=== PATIENT | female | born 1965 | race Caucasian/White ===

== ENCOUNTER 2023-10-25 13:55 | Outpatient (OUT) | payer OTHER, SELFPAY ==
--- NOTE | 2023-10-25 14:03 | MM_ITS ---
Patient Name: ATIF MEDLEY MR#: [id number] : 1965 Exam Date: 10/25/2023 Ordering Doctor: DR Leeroy Villafuerte . RADIOLOGY REPORT PROCEDURE: MM TOMOSYNTHESIS SCREENING BI COMPARISON: MG MAMM SCREEN 3D GABRIEL CAD, 10/07/2022. MG MAMM SCREEN 3D GABRIEL CAD, 10/06/2021. MG MAMM SCREEN GABRIEL W CAD, 05/07/2020. MG MAMM GABRIEL SCRN W CAD DIG, 07/16/2013. INDICATIONS: screening Calculator Name NCI Breast Cancer Risk Assessment Tool 5 Year Breast Cancer Risk 2.60% Lifetime Breast Cancer Risk 15.20% Personal Breast Cancer No Personal Ovarian Cancer No Treatments None Family Cancers Mother with breast cancer at age 66; Aunt-paternal with breast cancer at age ~58. LOCATION: [facility] BREAST COMPOSITION: There are scattered areas of fibroglandular density. FINDINGS: DIAGNOSTIC CATEGORY 2--BENIGN FINDING: RIGHT BREAST: No significant suspicious finding. Scattered benign-appearing calcifications are present. No significant change has occurred. LEFT BREAST: No significant suspicious finding. Scattered benign-appearing calcifications are present. No significant change has occurred. RECOMMENDATIONS: ROUTINE MAMMOGRAM AND CLINICAL EVALUATION IN 12 MONTHS. PLEASE NOTE: A NORMAL MAMMOGRAM DOES NOT EXCLUDE THE POSSIBILITY OF BREAST CANCER. A CLINICALLY SUSPICIOUS PALPABLE LUMP SHOULD BE BIOPSIED. Dictated by: Dante Delatorre M.D. on 10/25/2023 at 16:29 Approved by: Dante Delatorre M.D. on 10/25/2023 at 16:31
== END 2023-10-25 13:56 | disposition home or self-care (01) ==
LOC: MAMMO 13:57
PROVIDERS: PCP Family Medicine; Visit Provider Family Medicine
DX: Z12.31 Encounter for screening mammogram for malignant neoplasm of breast (principal); Z80.3 Family history of malignant neoplasm of breast
CPT/HCPCS: 77063; 77067

== ENCOUNTER 2023-12-05 14:22 | Outpatient (OUT) | payer OTHER, SELFPAY | END 2023-12-05 14:23 | disposition home or self-care (01) | LOC: PST 14:22 | PROVIDERS: PCP Family Medicine; Visit Provider Surgery | DX: Z01.818 Encounter for other preprocedural examination (principal); Z12.11 Encounter for screening for malignant neoplasm of colon ==

== ENCOUNTER 2023-12-13 10:57 | Day surgery (SDC) | payer OTHER, SELFPAY ==
--- OUTSIDE RECORDS SUMMARY | 2023-12-13 11:07 | XMS_ITS | CCD ---
Author Organization [facility] Care Team Providers Care Document Analyst Name Role Phone Mike DIXON, Leeroy Mulligan Primary Care Provider CANOS IV, PHILIP RAMIREZ Admitting Unavaila ble CANOS IV, PHILIP RAMIREZ Attending Unavaila ble NADERER, LEEROY MULLIGAN Primary Care Unavailabl e CANOS IV, PHILIP RAMIREZ Referring Unavaila ble MARIAELENAERER, LEEROY MULLIGAN Primary Care Unavailabl e NADERER, DR LEEROY Farah Admitting Unavailable NADERER, DR LEEROY Farah Primary Care Unavailable NADEREMadison, DR LEEROY Farah Consulting Unavailable NADEREMadison, DR LEEROY Farah Attending Unavailable NADERER, DR LEEROY Farah Admitting Unavailable ZIEBER, DR DANTE Wallace Consulting Unavailable MIKE, DR LEEROY Farah Primary Care Unavailable NADEREMadison, DR LEEROY Farah Attending Unavailable NADMATTHEW, DR LEEROY Farah Consulting Unavailable Leeroy Mckeon MD Primary Care Provider MERON BANKS Attending Unavailable MARIAELENAERER, LEEROY Referring Unavailable Medications Current Medications Medication Drug Class(es) Dates Sig (Normalized) Sig (Original) acetaminophen 325 mg / HYDROcodone bitartrate 5 mg oral tablet (1 source) Opioid Agonist Start: 11-06-2020 End: 11-13-2020 HYDROcodone-aceta minophen (NORCO) 5-325 MG per tablet Indications: Acute post-operative pain Take 1 tablet by mouth every 6 hours as needed for Pain for up to 7 days. Intended supply: 7 days. Take lowest dose possible to manage pain 28 tablet 0 11/06/2020 11/13/2020 Active aspirin 81 mg chewable tablet (2 sources) Platelet Aggregation Inhibitor, Nonsteroidal Anti-inflammatory Drug take 1 tablet by mouth once daily aspirin 81 MG chewable tablet Take 81 mg by mouth daily 0 Active busPIRone hydrochloride 7.5 mg oral tablet (3 sources) Start: 12-20-2023 take 1 tablet by mouth in the morning busPIRone (Buspar) 7.5 MG tablet Indications: Generalized anxiety disorder (CMS/HCC) Take 1 tablet (7.5 mg) by mouth in the morning and 1 tablet (7.5 mg) before bedtime. 60 tablet 5 06/08/2023 Active End: 11-06-2020 take 7.5 mg by mouth twice daily busPIRone (BUSPAR) 5 MG tablet Take 7.5 mg by mouth 2 times daily 0 11/06/2020 Discontinued (LIST CLEANUP) calcium carbonate 500 mg oral tablet (2 sources) take 1 tablet by mouth once daily calcium carbonate (OSCAL) 500 MG TABS tablet Take 500 mg by mouth daily 0 Active calcium chloride 0.0014 meq/ml / potassium chloride 0.004 meq/ml / sodium chloride 0.103 meq/ml / sodium lactate 0.028 meq/ml injectable solution (1 source) Start: lactated ringers infusion cholecalciferol 0.05 mg oral capsule (2 sources) Vitamin D Cholecalciferol (VITAMIN D3) 50 MCG (1999) CAPS Take by mouth 0 Active 1 ml diphenhydrAMINE hydrochloride 50 mg/ml cartridge (1 source) Histamine-1 Receptor Antagonist Start: End: diphenhydrAMINE (BENADRYL) injection 12.5 mg docosahexaenoic acid 120 mg / eicosapentaenoic acid 180 mg oral capsule (2 sources) take 1 capsule by mouth three times daily Powell-3 Fatty Acids (FISH OIL) 1000 MG CAPS Take 3,000 mg by mouth 3 times daily 0 Active docusate sodium 100 mg oral capsule (1 source) Start: take 1 capsule by mouth twice daily docusate sodium (COLACE) 100 MG capsule Take 1 capsule by mouth 2 times daily 30 capsule 2 11/06/2020 Active labetalol (NORMODYNE;TRANDATE) injection syringe 5 mg (1 source) Start: labetalol (NORMODYNE;TRANDATE) injection syringe 5 mg LORazepam 1 mg oral tablet (1 source) Benzodiazepine Start: take 1 tablet by mouth three times daily as needed LORazepam (Ativan) 1 MG tablet Indications: VIANCA (generalized anxiety disorder) (CMS/HCC) TAKE 1 TABLET BY MOUTH THREE TIMES DAILY NEEDED 90 tablet 1 07/28/2023 Active Start: 07-28-2023 take 1 tablet by cinthia three times daily as needed LORazepam (Ativan) 1 MG tablet Indications: VIANCA (generalized anxiety disorder) ([facility]) TAKE 1 TABLET BY MOUTH THREE TIMES DAILY NEEDED 90 tablet 1 07/28/2023 Active 1 ml meperidine hydrochloride 50 mg/ml injection (1 source) Opioid Agonist Start: 11-06-2020 meperidine (DEMEROL) injection 12.5 mg metoprolol tartrate 50 mg oral tablet (2 sources) beta-Adrenergic Barbie take 1 tablet by mouth twice daily metoprolol tartrate (LOPRESSOR) 50 MG tablet Take 50 mg by mouth 2 times daily 0 Active 1 ml morphine sulfate 2 mg/ml cartridge (1 source) Opioid Agonist Start: 11-06-2020 morphine (PF) injection 2 mg Multiple Vitamins-Minerals (THERAPEUTIC MULTIVITAMIN-MINERALS ) tablet (2 sources) take 1 tablet by mouth once daily Multiple Vitamins-Minerals (THERAPEUTIC MULTIVITAMIN-MINERAL S) tablet Take 1 tablet by mouth daily 0 Active ondansetron 4 mg disintegrating oral tablet (2 sources) Serotonin-3 Receptor Antagonist Start: 11-06-2020 take 1 tablet by mouth every six hours as needed for nausea ondansetron (ZOFRAN ODT) 4 MG disintegrating tablet Take 1 tablet by mouth every 6 hours as needed for Nausea or Vomiting 20 tablet 0 11/06/2020 Active Start: 11-06-2020 End: 11-06-2020 ondansetron (ZOFRAN) injecti on 4 mg 1 ml promethazine hydrochloride 25 mg/ml injection (1 source) Phenothiazine Start: 11-06-2020 promethazine (PHENERGAN) injection 12.5 mg 24 hr QUEtiapine 300 mg extended release oral tablet (2 sources) Atypical Antipsychotic take 1 tablet by mouth once daily QUEtiapine (SEROQUEL XR) 300 MG extended release tablet Take 300 mg by mouth nightly 0 Active sertraline 100 mg oral tablet (2 sources) Serotonin Reuptake Inhibitor take 1 tablet by mouth once daily sertraline (ZOLOFT) 100 MG tablet Take 100 mg by mouth daily 0 Active 3 ml sodium chloride 9 mg/ml injection (7 sources) Start: 11-06-2020 sodium chloride flush 0.9 % injection 10 mL Start: 11-06-2020 End: 11-06-2020 0.9 % sodium chloride bolus Start: 11-06-2020 sodium chlorid e flush 0.9 % injection 10 mL Start: 11-06-2020 0.9 % sodium c hloride infusion Start: 10-28-2020 sodium chlorid e flush 0.9 % injection 10 mL Start: 10-28-2020 End: 10-28-2020 0.9 % sodium chloride bolus Zinc (1 source) take 1 tablet by mouth once priscila y zinc 50 MG TABS tablet Take 50 mg by mouth daily 0 Active Completed/Discontinued Medications Medication Drug Class(es) Dates Sig (Normalized) Sig (Original) acetaminophen 325 mg / oxyCODONE hydrochloride 5 mg oral tablet (1 source) Opioid Agonist Start: 11-06-2020 End: 11-06-2020 oxyCODONE-acetamino phen (PERCOCET) 5-325 MG per tablet b complex vitamins capsule (2 sources) End: 11-06-2020 take 1 capsule by mouth once daily b complex vitamins capsule Take 1 capsule by mouth daily 0 11/06/2020 Discontinued (LIST CLEANUP) take 1 capsule by mouth once elodia ly b complex vitamins capsule Take 1 capsule by mouth daily 0 Active 2 ml fentaNYL 0.05 mg/ml injection (1 source) Opioid Agonist Start: 11-06-2020 End: 11-06-2020 fentaNYL (SUBLIMAZE) 100 MCG/2ML injection 1 ml HYDROmorphone hydrochloride 1 mg/ml cartridge (4 sources) Opioid Agonist Start: 11-06-2020 End: 11-06-2020 HYDROmorphone (DILAUDID) 1 MG/ML injection Start: 11-06-2020 HYDROmorphone (DILAUDID) injection 0.5 mg Start: 11-06-2020 HYDROmorphone (DILAUDID) injection 0.25 mg iohexol (OMNIPAQUE 240) injection 50 mL (1 source) Start: 10-28-2020 End: 10-28-2020 iohexol (OMNIPAQUE 240) injection 50 mL iopamidol (ISOVUE-370) 76 % injection 75 mL (1 source) Start: 10-28-2020 End: 10-28-2020 iopamidol (ISOVUE-370) 76 % injection 75 mL 2 ml midazolam 1 mg/ml injection (1 source) Benzodiazepine Start: 11-06-2020 End: 11-06-2020 midazolam (VERSED) 2 MG/2ML injection Problems Problem Classification Problem Date Documented Date Episodic/Chronic Abdominal pain (1 source) Right inguinal pain; Translations: [Right lower quadrant pain] Episodic Anxiety disorders (1 source) Generalized anxiety disorder; Translations: [Generalized anxiety disorder] 07-28-2023 Chronic Other nervous system disorders (1 source) Acute postoperative pain; Translations: [Other acute postprocedural pain] Episodic Other screening for suspected conditions (not mental disorders or infectious disease) (4 sources) Encounter for screening mammogram for malignant neoplasm of breast; Translations: [ENC SCR MAMMO MALIG NEOPLASM BREAST] Onset: 10-07-2022 Episodic Residual codes; unclassified (1 source) Family history of malignant neoplasm of breast; Translations: [FAMILY HX MALIG NEOPLASM OF BREAST] Onset: 10-13-2022 Episodic Results Test Name Value Interpretation Reference Range Facil ity MG MAMM SCREEN 3D GABRIEL CADon 10-07-2022 MG MAMM SCREEN 3D GABRIEL CAD Patient: ATIF MEDLEY Exam Date: 10/07/2022 : 1965 Gender:F Ordering : DR LEEROY MCKEON . Admission #: [id number] Family : Order #: [id number] CLICK HERE TO VIEW EXAM RADIOLOGY REPORT PROCEDURE: MAMMOGRAM SCREENING 3D BILATERAL CAD COMPARISON: MG MAMM SCREEN 3D GABRIEL CAD, 10/06/2021. MG MAMM SCREEN GABRIEL W CAD, 05/07/2020. MG MAMM SCREEN GABRIEL W CAD, 06/23/2017. DIGITIZED_MAMMO, 06/28/2008. INDICATIONS: Screening mammography Calculator Name NCI Breast Cancer Risk Assessment Tool 5 Year Breast Cancer Risk 2.50% Lifetime Breast Cancer Risk 15.50% Personal Breast Cancer No Personal Ovarian Cancer No Treatments None Family Cancers Mother with breast cancer at age 66; Aunt-paternal with breast cancer at age 58. LOCATION: [facility] BREAST COMPOSITION: Scattered areas fibroglandular density. FINDINGS: DIAGNOSTIC CATEGORY 2--BENIGN FINDING: RIGHT BREAST: No significant suspicious finding. Scattered benign-appearing calcifications are present. No significant change has occurred. LEFT BREAST: No significant suspicious finding. Scattered benign-appearing calcifications are present. No significant change has occurred. RECOMMENDATIONS: ROUTINE MAMMOGRAM AND CLINICAL EVALUATION IN 12 MONTHS. PLEASE NOTE: A NORMAL MAMMOGRAM DOES NOT EXCLUDE THE POSSIBILITY OF BREAST CANCER. A CLINICALLY SUSPICIOUS PALPABLE LUMP SHOULD BE BIOPSIED. Dictated by: Dante Delatorre M.D. on 10/07/2022 at 14:36 Approved by: Dante Delatorre M.D. on 10/07/2022 at 14:39 Normal [facility] CBC AUTO DIFFon 07-28-2022 BASO # 0.0 103/ul Normal 0.0-0.1 [facility] Comment on above: Performed By: #### C BC #### [facility] [address] [place] [address] Dr. Mary Bolanos Basophils/100 WBC (Bld) 1.0 % Normal 0.2-2.0 [facility] Comment on above: Performed By: #### C BC #### [facility] [address] [place] [address] Dr. Mary Bolanos EO # 0.1 103/ul Normal 0.0-0.7 [facility] Comment on above: Performed By: #### C BC #### [facility] [address] [place] [address] Dr. Mary Bolanos Eosinophils/100 WBC (Bld) 2.8 % Normal 0.9-7.0 [facility] Comment on above: Performed By: #### C BC #### [facility] [address] [place] [address] Dr. Mary Bolanos Erythrocyte distribution width (RBC) [Ratio] 14.5 % Normal 11.0-15.0 [facility] Comment on above: Performed By: #### C BC #### [facility] [address] [place] [address] Dr. Mary Bolanos Hematocrit (Bld) [Volume fraction] 40.4 % Normal 36.0-48.0 [facility] Comment on above: Performed By: #### C BC #### [facility] [address] [place] [address] Dr. Mary Bolanos Hemoglobin (Bld) [Mass/Vol] 12.3 g/dL Normal 12.0-16.0 [facility] Comment on above: Performed By: #### C BC #### [facility] [address] [place] [address] Dr. Mary Bolanos IG # 0.01 10e3/ul Normal 0.00-0.03 [facility] Comment on above: Performed By: #### C BC #### [facility] [address] [place] [address] Dr. Mary Bolanos IG % 0.3 % Normal 0.0-0.5 [facility] Comment on above: Performed By: #### C BC #### [facility] [address] [place] [address] Dr. Mary Bolanos LYMPH # 1.9 103/ul Normal 1.2-3.8 [facility] Comment on above: Performed By: #### C BC #### [facility] [address] [place] [address] Dr. Mary Bolanos Lymphocytes/100 WBC (Bld) 48.0 % Normal 20.5-60.0 [facility] Comment on above: Performed By: #### C BC #### [facility] [address] [place] [address] Dr. Mary Bolanos MANUAL DIFF REQ NO Normal [facility] Comment on above: Performed By: #### C BC #### [facility] [address] [place] [address] Dr. Mary Bolanos MCH (RBC) [Entitic mass] 28.2 pg Normal 26.7-34.0 [facility] Comment on above: Performed By: #### C BC #### [facility] [address] [place] [address] Dr. Mary Bolanos MCHC (RBC) [Mass/Vol] 30.4 g/dL Normal 29.9-35.2 [facility] Comment on above: Performed By: #### C BC #### [facility] [address] [place] [address] Dr. Mary Bolanos MCV (RBC) [Entitic vol] 92.7 fL Normal 81.0-99.0 [facility] Comment on above: Performed By: #### C BC #### [facility] [address] [address] [address] Mary Bolanos MONO # 0.3 103/ul Normal 0.3-0.8 [facility] Comment on above: Performed By: #### C BC #### [facility] [address] [place] [address] Dr. Mary Bolanos Monocytes/100 WBC (Bld) 7.8 % Normal 1.7-12.0 [facility] Comment on above: Performed By: #### C BC #### [facility] [address] [place] [address] Dr. Mary Bolanos NEUT # 1.6 103/ul Normal 1.4-6.5 [facility] Comment on above: Performed By: #### C BC #### [facility] [address] [place] [address] Dr. Mary Bolanos Neutrophils/100 WBC (Bld) 40.1 % Critically low 43.0-75.0 [facility] Comment on above: Performed By: #### C BC #### [facility] [address] [place] [address] Dr. Mary Bolanos Platelet mean volume (Bld) [Entitic vol] 9.0 fL Critically low 9.5-13.5 [facility] Comment on above: Performed By: #### C BC #### [facility] [address] [place] [address] Dr. Mary Bolanos PLT 291 103/ul Normal 150-450 [facility] Comment on above: Performed By: #### C BC #### [facility] [address] [place] [address] Dr. Mary Bolanos RBC 4.36 106/ul Normal 4.20-5.40 [facility] Comment on above: Performed By: #### C BC #### [facility] [address] [place] [address] Dr. Mary Bolanos WBC 4.0 103/ul Normal 4.0-11.0 [facility] Comment on above: Performed By: #### C BC #### [facility] [address] [address] [address] Mary Bolanos GLYCOHEMOGLOBIN A1Con 2022 ADA RECOMMENDATION SEE BELOW Normal [facility] Comment on above: Result Comment: ADA RECOMMENDED LIMIT 4.0 - 6.0 ADA THERAPEUTIC TARGET < 7.0 ACTION SUGGESTED > 7.0 Performed By: #### A 1C #### [facility] [address] [address] [address] Mary Bolanos Glucose [Mass/Vol] 103 mg/dL Normal [facility] Comment on above: Performed By: #### A 1C #### [facility] [address] [place] [address] Dr. Mary Bolanos HbA1c (Bld) [Mass fraction] 5.2 % Normal 4.5-6.2 [facility] Comment on above: Performed By: #### A 1C #### [facility] [address] [place] [address] Dr. Mary Bolanos LIPID PROFILEon 07-28-2022 CHOL-HDL RATIO NORM SEE BELOW Normal [facility] Comment on above: Result Comment: 3.3 - 4.4 LOW RISK 4.4 - 7.1 AVERAGE RISK 7.1 - 11.0 MODERATE RISK >11.0 HIGH RISK Performed By: #### T SH, LIPID, BMP, LIVER #### [facility] [address] [place] [address] Dr. Mary Bolanos Cholesterol [Mass/Vol] 214 mg/dL Critically high <=200 [facility] Comment on above: Performed By: #### T SH, LIPID, BMP, LIVER #### [facility] [address] [place] [address] Dr. Mary Bolanos Cholesterol in HDL [Mass/Vol] 64 mg/dL Critically high 40-60 [facility] Comment on above: Performed By: #### T SH, LIPID, BMP, LIVER #### [facility] [address] [place] [address] Dr. Mary Bolanos Cholesterol in LDL [Mass/Vol] 132.2 mg/dL Normal [facility] Comment on above: Performed By: #### T SH, LIPID, BMP, LIVER #### [facility] [address] [address] [address] Mary Bolanos Cholesterol.total/Cho lesterol in HDL [Mass ratio] 3.3 {ratio} Normal [facility] Comment on above: Performed By: #### T SH, LIPID, BMP, LIVER #### [facility] [address] [address] [address] Mary Bolanos HDL NORMAL > or = 60 mg/dl - LOW CARDIOVASCULAR RISK <40 mg/dl - HIGH CARDIOVASCULAR RISK Normal [facility] Comment on above: Performed By: #### T SH, LIPID, BMP, LIVER #### [facility] [address] [address] [address] Mary Bolanos LDL CALC NORMAL SEE BELOW Normal [facility] Comment on above: Result Comment: <100 mg/dl OPTIMAL 100 - 129 mg/dl NEAR OR ABOVE OPTIMAL 130 - 159 mg/dl BORDERLINE HIGH 160 - 189 mg/dl HIGH >190 mg/dl VERY HIGH Performed By: #### T SH, LIPID, BMP, LIVER #### [facility] [address] [address] [address] Mary Bolanos Triglyceride [Mass/Vol] 89 mg/dL Normal <=150 [facility] Comment on above: Performed By: #### T SH, LIPID, BMP, LIVER #### [facility] [address] [address] [address] Mary Bolanos VLDL CALC 17.8 mg/dL Normal [facility] Comment on above: Performed By: #### T SH, LIPID, BMP, LIVER #### [facility] [address] [address] [address] Mary Bolanos LIVER PROFILEon 07-28-2022 Albumin [Mass/Vol] 3.4 g/dL Normal 3.4-5.0 [facility] Comment on above: Performed By: #### T SH, LIPID, BMP, LIVER #### [facility] [address] [address] [address] Mary Bolanos Albumin/Globulin [Mass ratio] 0.8 {ratio} Normal [facility] Comment on above: Performed By: #### T SH, LIPID, BMP, LIVER #### [facility] [address] [address] [address] Mary Bolanos ALP [Catalytic activity/Vol] 96 U/L Normal 46-116 [facility] Comment on above: Performed By: #### T SH, LIPID, BMP, LIVER #### [facility] [address] [address] [address] Mary Bolanos ALT [Catalytic activity/Vol] 32 U/L Normal 14-59 [facility] Comment on above: Performed By: #### T SH, LIPID, BMP, LIVER #### [facility] [address] [place] [address] Dr. aMry Bloanos AST [Catalytic activity/Vol] 25 U/L Normal 15-37 [facility] Comment on above: Performed By: #### T SH, LIPID, BMP, LIVER #### [facility] [address] [place] [address] Dr. Mary Bolanos BILI, CONJUGATED 0.1 mg/dL Normal 0.0-0.2 [facility] Comment on above: Performed By: #### T SH, LIPID, BMP, LIVER #### [facility] [address] [address] [address] Mary Bolanos Bilirubin [Mass/Vol] 0.3 mg/dL Normal 0.2-1.0 [facility] Comment on above: Performed By: #### T SH, LIPID, BMP, LIVER #### [facility] [address] [place] [address] Dr. Mary Bolanos Globulin (S) [Mass/Vol] 4.1 g/dL Normal [facility] Comment on above: Performed By: #### T SH, LIPID, BMP, LIVER #### [facility] [address] [place] [address] Dr. Mary Bolanos Protein [Mass/Vol] 7.5 g/dL Normal 6.4-8.2 [facility] Comment on above: Performed By: #### T SH, LIPID, BMP, LIVER #### [facility] [address] [place] [address] Dr. Mary Bolanos PROF CHEM 8 (BAS METB)on Anion gap [Moles/Vol] 8.5 mmol/L Normal [facility] Comment on above: Performed By: #### T SH, LIPID, BMP, LIVER #### [facility] [address] [address] [address] Mary Bolanos Calcium [Mass/Vol] 8.8 mg/dL Normal 8.5-10.1 [facility] Comment on above: Performed By: #### T SH, LIPID, BMP, LIVER #### [facility] [address] [place] [address] Dr. Mary Bolanos Chloride [Moles/Vol] 106 mmol/L Normal 98-107 [facility] Comment on above: Performed By: #### T SH, LIPID, BMP, LIVER #### [facility] [address] [place] [address] Dr. Mary Bolanos CO2 [Moles/Vol] 31.3 mmol/L Normal 21.0-32.0 [facility] Comment on above: Performed By: #### T SH, LIPID, BMP, LIVER #### [facility] [address] [address] [address] Mary Bolanos Creatinine [Mass/Vol] 1.13 mg/dL Critically high 0.55-1.02 [facility] Comment on above: Performed By: #### T SH, LIPID, BMP, LIVER #### [facility] [address] [place] [address] Dr. Mary Bolanos EGFR-AF INDONESIAN >60 Normal >=60 [facility] Comment on above: Performed By: #### T SH, LIPID, BMP, LIVER #### [facility] [address] [place] [address] Dr. Mary Bolanos EGFR-NON AF INDONESIAN 50 mL/min/1.73m2 Critically low >=60 [facility] Comment on above: Performed By: #### T SH, LIPID, BMP, LIVER #### [facility] [address] [address] [address] Mary Bolanos Glucose [Mass/Vol] 96 mg/dL Normal 74-106 [facility] Comment on above: Performed By: #### T SH, LIPID, BMP, LIVER #### [facility] [address] [place] [address] Dr. Mary Bolanos Potassium [Moles/Vol] 4.8 mmol/L Normal 3.5-5.1 [facility] Comment on above: Performed By: #### T SH, LIPID, BMP, LIVER #### [facility] [address] [place] [address] Dr. Mary Bolanos Sodium [Moles/Vol] 141 mmol/L Normal 136-145 [facility] Comment on above: Performed By: #### T SH, LIPID, BMP, LIVER #### [facility] [address] [place] [address] Dr. Mary Bolanos Urea nitrogen [Mass/Vol] 14.0 mg/dL Normal 7.0-18.0 [facility] Comment on above: Performed By: #### T SH, LIPID, BMP, LIVER #### [facility] [address] [place] [address] Dr. Mary Bolanos Urea nitrogen/Creatinine [Mass ratio] 12.4 mg/mg Normal [facility] Comment on above: Performed By: #### T SH, LIPID, BMP, LIVER #### [facility] [address] [place] [address] Dr. Mary Bolanos TSHon 07-28-2022 TSH 2.034 uIU/mL Normal 0.358-3.[address] [facility] Comment on above: Performed By: #### T SH, LIPID, BMP, LIVER #### [facility] [address] [place] [address] Dr. Mary Bolanos COVID-19, RapidOrdered By: Madison Brown on 11-06-2020 SARS-CoV-2 (COVID-19) RNA NEIL+probe Ql (Unsp spec) Not detected Not Detected [employer] Phone: Comment on above: Rapid NAAT: The specimen is NEGATIVE for SARS-CoV-2, the novel coronavirus associated with COVID-19. The ID NOW COVID-19 assay is designed to detect the virus that causes COVID-19 in patients with signs and symptoms of infection who are suspected of COVID-19. An individual without symptoms of COVID-19 and who is not shedding SARS-CoV-2 virus would expect to have a negative (not detected) result in this assay. Negative results should be treated as presumptive and, if inconsistent with clinical signs and symptoms or necessary for patient management, should be tested with an alternative molecular assay. Negative results do not preclude SARS-CoV-2 infection and should not be used as the sole basis for patient management decisions. Fact sheet for Healthcare Providers: https://www.fda.gov/media/869154/download Fact sheet for Patients: https://www.fda.gov/media/664036/download Methodology: Isothermal Nucleic Acid Amplification Specimen Description .NASOPHARYNGEAL SWAB [facility] [employer] Phone: [facility] [employer] Phone: [id number] 11-06-2020 SARS-CoV-2 (COVID-19) RNA NEIL+probe Ql (Unsp spec) Not detected Normal NOTDET [facility] Comment on above: Result Comment: Rapid NAAT: The specimen is NEGATIVE for SARS-CoV-2, the novel coronavirus associated with COVID-19. The ID NOW COVID-19 assay is designed to detect the virus that causes COVID-19 in patients with signs and symptoms of infection who are suspected of COVID-19. An individual without symptoms of COVID-19 and who is not shedding SARS-CoV-2 virus would expect to have a negative (not detected) result in this assay. Negative results should be treated as presumptive and, if inconsistent with clinical signs and symptoms or necessary for patient management, should be tested with an alternative molecular assay. Negative results do not preclude SARS-CoV-2 infection and should not be used as the sole basis for patient management decisions. Fact sheet for Healthcare Providers: https://www.fda.gov/media/987707/download Fact sheet for Patients: https://www.fda.gov/media/846606/download Methodology: Isothermal Nucleic Acid Amplification Performed By: #### C OVRB #### [place] [address] Medical Service Technician: Siddharth Nunes MD Surgical Pathologyon 05-20-2 021 Surgical Pathology (NOTE) -- Diagnosis -- Umbilical region, excision: Benign epithelial inclusion cyst. Hina Younger Electronically Signed Out rdd/11/10/2020 Clinical Information Pre-op Diagnosis: UMBILICAL HERNIA Operative Findings: UMBILICAL CYST Operation Performed: ATTEMPTED HERNIA REPAIR CONVERTED TO DIAGNOSTIC ROBOTIC LAPAROSCOPY WITH EXCISION OF UMBILICAL CYST Source of Specimen 1: UMBILICAL CYST Gross Description ATIF MEDLEY, UMBILICAL CYST 2.5 x 2.5 x 1.5 cm disrupted unilocular cyst with copious friable hernandez material. Obvious tissue entirely 1cs. tm Microscopic Description Sections show fibrous cyst wall and internal lining of stratified squamous epithelium keratinization. There is no atypia or malignancy. SURGICAL PATHOLOGY CONSULTATION Patient Name: ATIF MEDLEY [facility] Rec: [id number] Path Number: [id number] [employer] [facility] [address] [place] [id number] Normal [facility] Comment on above: Performed By: #### P PPVS #### [facility] [address] [place] [address] [id number] Medical Service Technician: Primo King MD CT ABDOMEN PELVIS W IV CONTR Gil 10-28-2020 CT ABDOMEN PELVIS W IV CONTRAST EXAMINATION: CT OF THE ABDOMEN AND PELVIS WITH CONTRAST 10/28/2020 4:35 pm TECHNIQUE: CT of the abdomen and pelvis was performed with the administration of intravenous contrast. Multiplanar reformatted images are provided for review. Dose modulation, iterative reconstruction, and/or weight based adjustment of the mA/kV was utilized to reduce the radiation dose to as low as reasonably achievable. COMPARISON: None. HISTORY: ORDERING SYSTEM PROVIDED HISTORY: Right groin pain TECHNOLOGIST PROVIDED HISTORY: 55 y/o female with right groin pain. CT to rule out occult inguinal hernia. Reason for Exam: umbilical abd pain Acuity: Chronic Type of Exam: Initial Additional signs and symptoms: Rt groin pain Relevant Medical/Surgical History: hx HTN, former smoker FINDINGS: Lower Chest: Clear Organs: Fluid noted within an umbilical hernia. The liver, spleen, pancreas, and adrenals appear normal. Gallbladder normal. Kidneys appear normal. The bladder appears normal. GI/Bowel: Postsurgical changes consistent with gastric bypass. Oral contrast noted in the small bowel. Increased stool noted in the colon. Appendix normal. Pelvis: Normal Peritoneum/Retroperi toneum: The abdominal aorta and iliac arteries are normal in caliber. There is no pathologic adenopathy. Bones/Soft Tissues: Normal IMPRESSION: No acute disease. No radiodense urolithiasis or right inguinal hernia. Increased stool. Interpreted by: Kalia Fong MD Signed by: Kalia Fong MD 10/28/20 Final result Normal [facility] CT ABDOMEN PELVIS W IV CONTR AST Additional Contrast? OralOrdered By: Philip Brown on 10-28-2020 No acute disease. No radiodense urolithiasis or right inguinal hernia. Increased stool. [employer] Phone: EXAMINATION: CT OF THE ABDOMEN AND PELVIS WITH CONTRAST 10/28/2020 4:35 pm TECHNIQUE: CT of the abdomen and pelvis was performed with the administration of intravenous contrast. Multiplanar reformatted images are provided for review. Dose modulation, iterative reconstruction, and/or weight based adjustment of the mA/kV was utilized to reduce the radiation dose to as low as reasonably achievable. COMPARISON: None. HISTORY: ORDERING SYSTEM PROVIDED HISTORY: Right groin pain TECHNOLOGIST PROVIDED HISTORY: 55 y/o female with right groin pain. CT to rule out occult inguinal hernia. Reason for Exam: umbilical abd pain Acuity: Chronic Type of Exam: Initial Additional signs and symptoms: Rt groin pain Relevant Medical/Surgical History: hx HTN, former smoker FINDINGS: Lower Chest: Clear Organs: Fluid noted within an umbilical hernia. The liver, spleen, pancreas, and adrenals appear normal. Gallbladder normal. Kidneys appear normal. The bladder appears normal. GI/Bowel: Postsurgical changes consistent with gastric bypass. Oral contrast noted in the small bowel. Increased stool noted in the colon. Appendix normal. Pelvis: Normal Peritoneum/Retroperi toneum: The abdominal aorta and iliac arteries are normal in caliber. There is no pathologic adenopathy. Bones/Soft Tissues: Normal [employer] Phone: Jose, Mhpn Incoming Radiant Results From [email or web address] - 10/28/2020 9:25 PM EDT EXAMINATION: CT OF THE ABDOMEN AND PELVIS WITH CONTRAST 10/28/2020 4:35 pm TECHNIQUE: CT of the abdomen and pelvis was performed with the administration of intravenous contrast. Multiplanar reformatted images are provided for review. Dose modulation, iterative reconstruction, and/or weight based adjustment of the mA/kV was utilized to reduce the radiation dose to as low as reasonably achievable. COMPARISON: None. HISTORY: ORDERING SYSTEM PROVIDED HISTORY: Right groin pain TECHNOLOGIST PROVIDED HISTORY: 55 y/o female with right groin pain. CT to rule out occult inguinal hernia. Reason for Exam: umbilical abd pain Acuity: Chronic Type of Exam: Initial Additional signs and symptoms: Rt groin pain Relevant Medical/Surgical History: hx HTN, former smoker FINDINGS: Lower Chest: Clear Organs: Fluid noted within an umbilical hernia. The liver, spleen, pancreas, and adrenals appear normal. Gallbladder normal. Kidneys appear normal. The bladder appears normal. GI/Bowel: Postsurgical changes consistent with gastric bypass. Oral contrast noted in the small bowel. Increased stool noted in the colon. Appendix normal. Pelvis: Normal Peritoneum/Retroperi toneum: The abdominal aorta and iliac arteries are normal in caliber. There is no pathologic adenopathy. Bones/Soft Tissues: Normal IMPRESSION: No acute disease. No radiodense urolithiasis or right inguinal hernia. Increased stool. [facility] Work Phone: Creatinine w/GFRon 1 (cont.) Normal [facility] Comment on above: Result Comment: Aver age GFR for 50-59 years old: 93 mL/min/1.73sq m Chronic Kidney Disease: <60 mL/min/1.73sq m Kidney failure: <15 mL/min/1.73sq m eGFR calculated using average adult body mass. Additional eGFR calculator available at: http://www.[employer].com/multiple_crcl_2012.htm Performed By: #### C REG #### [place] [address] Medical Service Technician: Siddharth Nunes MD Creatinine [Mass/Vol] 0.82 mg/dL Normal 0.50-0.90 [facility] Comment on above: Performed By: #### C REG #### [address] [id number] Medical Service Technician: Siddharth Nunes MD GFR, Amer >60 Normal >60 [facility] Comment on above: Performed By: #### C REG #### [address] [id number] Medical Service Technician: Siddharth Nunes MD GFR,non Amer >60 Normal >[address] [facility] Comment on above: Performed By: #### C REG #### [address] [address] Medical Service Technician: Siddharth Nunes MD Staging: NOT REPORTED Normal [facility] Comment on above: Performed By: #### C REG #### [address] [address] Medical Service Technician: Siddharth Nunes MD Creatinine, SerumOrdered By: Philip Brown on 10-28-2020 Creatinine [Mass/Vol] 0.82 mg/dL 0.50 - 0.90 mg/dL [employer] Phone: GFR >60 >60 mL/min [employer] Phone: GFR Non- >60 >60 mL/min [employer] Phone: GFR/1.73 sq M.predicted MDRD (S/P/Bld) [Vol rate/Area] [employer] Phone: Comment on above: Average GFR for 50-5 9 years old: 93 mL/min/1.73sq m Chronic Kidney Disease: <60 mL/min/1.73sq m Kidney failure: <15 mL/min/1.73sq m eGFR calculated using average adult body mass. Additional eGFR calculator available at: http://www.globalrph.LiveHive/multiple_crcl_2012.htm GFR/1.73 sq M.predicted MDRD (S/P/Bld) [Vol rate/Area] NOT REPORTED [employer] Phone: Vital Signs Date Time Vital Sign Value Performing Clinician Faci lity 11-06-2020 17:15-0400 Diastolic blood pressure 76 mm[Hg] Philip Canos IV, DO Work Phone: [employer] Phone: 11-06-2020 17:15-0400 Heart rate 48 /min Philip Canos IV, DO Work Phone: [employer] Phone: 11-06-2020 17:15-0400 Respiratory rate 20 /min Hpilip Canos IV, DO Work Phone: [employer] Phone: 11-06-2020 17:15-0400 SaO2% (BldA) [Mass fraction] 100 % Philip Canos IV, DO Work Phone: [employer] Phone: 11-06-2020 17:15-0400 Systolic blood pressure 154 mm[Hg] Philip Canos IV, DO Work Phone: [employer] Phone: 11-06-2020 16:30-0400 Body temperature 97.2 [degF] Philip Canos IV, DO Work Phone: [employer] Phone: 11-06-2020 12:49-0400 Body height 162.6 cm Philip Canos IV, DO Work Phone: [employer] Phone: 11-06-2020 12:49-0400 Body mass index (BMI) [Ratio] 42.53 kg/m2 Philip Canos IV, DO Work Phone: [employer] Phone: 11-06-2020 12:49-0400 Body weight 112.4 kg Philip Brown IV, DO Work Phone: [facility] Work Phone: Encounters Encounter Date Encounter Type Care Provider Facility Start: 10-31-2023 End: 10-31-2023 ambulatory MERON DARREN Not Available Start: 07-26-2023 Refill Leeroy Bentley Work Phone: [facility] Comment on above: VIANCA (generalized anx iety disorder) ([facility]) (Primary Dx) Start: 10-07-2022 End: 10-08-[address] LEEROY MCKEON Facility:[facility] Start: 07-30-2022 Encounter for genera l adult medical examination without abnormal findings DR LEEROY MCKEON [facility] Start: 07-28-2022 End: 07-29-[address] LEEROY MCKEON Facility:[facility] Start: 07-28-2022 End: 07-29-2022 Encounter for general adult medical examination without abnormal findings DR LEEROY MCKEON Facility:[facility] Start: 11-06-2020 End: 11-06-2020 ambulatory PHILIP BROWN IV [facility] Start: 11-06-2020 End: 11-06-2020 Patient encounter status [facility] Start: 11-06-2020 End: 11-06-2020 Subsequent hospital visit by physician Philip Brown DO Work Phone: [facility] [place] Comment on above: Pre-op testing (Prim juliet Dx); Acute post-operative pain Start: 10-28-2020 End: 10-31-2020 ambulatory PHILIPERAN BROWN IV [facility] Start: 10-28-2020 End: 10-30-2020 Subsequent hospital visit by physician Low Alexander Ct R[facility] Scan Comment on above: Right groin pain Procedures Date Procedure Procedure Detail Performing Clinician Start: 11-06-2020 COVID-19, RAPID Philip Brown DO Work Phone: Start: 10-28-2020 Ct abdomen & pelvis w/contrast material Philip Brown DO Work Phone: Start: 10-28-2020 Creatinine blood Lorena Brown DO Work Phone: Plan of Treatment Date Care Activity Detail Author Start: 02-18-2023 Influenza vaccination Influenza Vacc ine (#1) [facility] Start: 02-18-2021 Influenza vaccination Flu vacc ine (Season Ended) [employer] Phone: Start: 11-20-2020 End: 11-20-2020 Patient encounter procedure 11/20/2020 Office Visit General Surgery Philip Brown IV, DO [address] [place] [address] [facility] Start: 11-06-2020 End: 11-06-2020 Admission to same day surgery center 11/06/2020 Surgery General Surgery KevinPhilip IV, DO [address] [place] [address] HERNIA UMBILICAL REPAIR LAPAROSCOPIC ROBOTIC WITH MESH [facility] [place] Comment on above: HERNIA UMBILICAL REP AIR LAPAROSCOPIC ROBOTIC WITH MESH Start: 11-06-2020 Subsequent hospital visit by physician 11/06/2020 Hospital Encounter General Surgery YevgeniyPhilip monique IV, DO [address] [place] [address] [facility] [place] Start: 11-04-2020 End: 11-04-2021 Basic metabolic 2000 panel - Serum or Plasma Basic Metabolic Panel Lab Routine Pre-op testing Expected: 11/04/2020, Expires: 11/04/2021 [employer] Phone: Comment on above: Expected: 11/04/2020 , Expires: 11/04/2021 Start: 11-04-2020 End: 11-04-2021 CBC W Auto Differential panel - Blood CBC Auto Differential Lab Routine Pre-op testing Expected: 11/04/2020, Expires: 11/04/2021 [employer] Phone: Comment on above: Expected: 11/04/2020 , Expires: 11/04/2021 Start: 2016 Screening for malign ant neoplasm of breast Breast cancer screen [employer] Phone: Start: 2016 Screening for malign ant neoplasm of colon Colon cancer screen colonoscopy [employer] Phone: Start: 2016 Shingles Vaccine (1 of 2) Shingles Vaccine (1 of 2) [employer] Phone: Start: 2006 Diabetes screen Diabetes screen [employer] Phone: Start: 2006 Lipid panel [facility]id screen [facility] Phone: Start: 2006 Screening for malign ant neoplasm of breast Mammogram [facility] Start: 1996 Screening for malign ant neoplasm of cervix [facility] Start: 08-27-1987 Screening for malign ant neoplasm of cervix [facility] Start: 1985 DTaP/Tdap/Td vaccine (1 - Tdap) DTaP/Tdap/Td vaccine (1 - Tdap) [facility] Phone: Start: 1981 HIV screening HIV screen [facility] Work Phone: Start: 1978 COVID-19 Vaccine (1) COVID-19 Vaccin e (1) [employer] Phone: Start: 1966 Hepatitis C screening Hepatitis C sc reen [employer] Phone: Start: 1966 Screening for malign ant neoplasm of colon [facility] End: 11-06-2020 Blood glucose - POCT Blood glucose - POCT Point of Care Testing Routine One Time for 1 Occurrences starting 11/06/2020 until 11/06/2020 [employer] Phone: Comment on above: One Time for 1 Occur rences starting 11/06/2020 until 11/06/2020 End: 11-04-2021 EKG 12 lead EKG 12 lead ECG Routine Pre-op testing 1 Occurrences starting 11/04/2020 until 11/04/2021 [employer] Phone: Comment on above: 1 Occurrences starti ng 11/04/2020 until 11/04/2021 Oxygen therapy [[facility] Data Set] Initiate Oxygen Therapy Protocol Respiratory Care Routine Daily until discontinued starting 11/06/2020 [employer] Phone: Comment on above: Daily until disconti nued starting 11/06/2020 Phase I & II - meter ed glucose Phase I & II - metered glucose Point of Care Testing Routine As Needed until discontinued starting 11/06/2020 [employer] Phone: Comment on above: As Needed until disc ontinued starting 11/06/2020 End: 11-06-2020 , urine POCT , urine POCT Point of Care Testing Routine One Time for 1 Occurrences starting 11/06/2020 until 11/06/2020 [employer] Phone: Comment on above: One Time for 1 Occur rences starting 11/06/2020 until 11/06/2020 Surgical Pathology Surgical Path ology Lab Routine Release Upon Ordering for 1 Occurrences starting 11/06/2020 [employer] Phone: Comment on above: Release Upon Orderin g for 1 Occurrences starting 11/06/2020 Payers Date Payer Category Payer Unknown [employer] [id number] 2022-Present [address] [address] [place] [address] [id number] 2020 Unknown [id number] 1966 Unknown [id number] 5 1966 Unknown [id number] 5 1966 Unknown [id number] 3 1966 Unknown [id number] 3 1966 Unknown [id number] 1959 Unknown [id number] Social History Date Type Detail Facility Start: 10-30-2020 End: 11-06-2020 Tobacco smoking status [facility] Former smoker [employer] Phone: End: 06-20-2004 History of tobacco use Current smoker [employer] Start: 10-30-2020 End: 11-06-2020 Tobacco use and exposure Never used [employer] Start: 1965 Sex Assigned At Not on file [employer] Phone: Start: 11-06-2020 Alcohol intake Ex-drinker (finding) [employer] Phone: Exposure to SARS-CoV-2 (event) Not sure [employer] Tobacco smoking status [facility] Tobacco smoking consumption unknown [facility] Healthcare Gender identity Not on file [facility] Telephone encounter Note 07-28-2023 Telephone Encounter - Leeroy Mckeon MD - 07/28/2023 1:17 PM EST Note Date & Type Note Facility 07-28-2023 Telephone encount er Note Patient has appointment 10/09 at 1:45 in [facility] but not in epic. Please add appointment. MAN [facility] Note 07-28-2023 Telephone Encounter - Leeroy Mckeon MD - 07/28/2023 1:17 PM EST Note Date & Type Note Facility 07-28-2023 Miscellaneous Notes Formattin g of this note might be different from the original. Patient has appointment 10/09 at 1:45 in [facility] but not in [facility]. Please add appointment. MAN documented in this encounter [facility] History of Present illness Narrative 11-04-2020 Luciano Beach RN - 11/04/2020 12:51 PM EDT Note Date & Type Note Facility 11-04-2020 History of Present illness Narrative Preoperative Instructions: Stop eating solid foods at midnight the night prior to your surgery. Stop drinking clear liquids at midnight the night prior to your surgery. 11-06-20 Arrive at the surgery center (3rd entrance) on ___6-49-08 by ___1130 . Please stop any blood thinning medications as directed by your surgeon or prescribing physician. Failure to stop certain medications may interfere with your scheduled surgery. These may include: Aspirin, Coumadin, Plavix, NSAIDS (Motrin, Aleve, Advil, Mobic, Celebrex), Eliquis, Pradaxa, Xarelto, Fish oil, and herbal supplements. You may continue the rest of your medications through the night before surgery unless instructed otherwise. Day of surgery please take only the following medication(s) with a small sip of water:Metoprolol, Zoloft Please shower with antibacterial soap and water the night before and the morning of surgery.. Reminders: -If you are going home the day of your procedure, you will need a family member or friend to stay during the procedure and drive you home after your procedure. Your recycle driver must be 18 years of age or older and able to sign off on your discharge instructions. -If you are going home the same day of your surgery, someone must remain with you for the first 24 hours after your surgery if you receive sedation or anesthesia. -Please do not wear any jewelery, contacts or body piercing the day of surgery documented in this encounter [employer] Phone: Hospital Discharge instructions 09-18-2020 Instructions Note Date & Type Note Facility 09-18-2020 Hospital Discharg e instructions Camila Villanueva RN - 11/06/2020 Patient Discharge Instructions Discharge Date: 11/06/2020 Discharged To: Home Home with Home Health Care: No RESUME ACTIVITY: BATHING: May shower in 24 hours, leave Dermabond on, no creams/lotions/ointments over Dermabond DRIVING: No driving on narcotics WALKING: Yes STAIRS: Yes LIFTING: Less than 10 pounds for 8 weeks DIET: common adult SPECIAL INSTRUCTIONS: May use ice pack for pain/swelling May use motrin or Aleve for pain. Used prescribed pain medication for severe pain. Take stool softener (Colace) if using narcotic pain med to avoid constipation. May take Milk of Magnesia as needed for constipation Call for follow up appointment with Dr. Brown in: 7-10 days Activity You have had anesthesia today Do not drive, operate heavy equipment, consume alcoholic beverages, or make any important decisions for 24 hours If you are taking pain medication: Do not drive or consume alcohol. Take your time changing positions today. You may feel light headed or dizzy if you move too quickly. Continue your home medications as ordered by your physician. Diet You can eat your normal diet when you feel well. You should start off with bland foods like chicken soup, toast, or yogurt. Then advance as tolerated. Drink plenty of fluids (unless your doctor tells you not to). Your urine should be very lightly colored without a strong odor. documented in this encounter [employer] Phone: Evaluation note Note Date & Type Note Facility Evaluation note Diagnosis Right groin pain Abdominal pain, right lower quadrant documented in this encounter [employer] Phone: Evaluation note Note Date & Type Note Facility Evaluation note Diagnosis Pre-op testing- Primary Preoperative examination, unspecified Acute post-operative pain documented in this encounter [employer] Phone: Evaluation note Note Date & Type Note Facility Evaluation note Diagnosis VIANCA (generalized anxiety disorder) ([facility])- Primary Generalized anxiety disorder documented in this encounter [facility] Reason for Referral Status Reason Specialty Diagnoses / Procedures Referre d By Contact Referred To Contact Closed Radiology Diagnoses Right groin pain Procedures CT ABDOMEN PELVIS W IV CONTRAST Additional Contrast? Oral [id number] Canos, Philip Jose IV, DO [address] [place] [address] Status Reason Specialty Diagnoses / Procedures Referre d By Contact Referred To Contact Open Cardiology Diagnoses Pre-op testing Procedures EKG 12 lead Jaelyn Welch MD [address] [place] [address] Summary Purpose Family History No Family History Records FoundNo Family History Records FoundNo Family History Records Found Advance Directives No Advanced Directives Records FoundNo Advanced Directives Records FoundNo Advanced Directives Records Found Additional Source Comments Reason for Visit (unrecogniz ed section and content) Status Reason Specialty Diagnoses / Procedures Referre d By Contact Referred To Contact Closed Radiology Diagnoses Right groin pain Procedures CT ABDOMEN PELVIS W IV CONTRAST Additional Contrast? Oral [id number] Canos, Philip Jose IV, DO [address] [place] [address] Status Reason Specialty Diagnoses / Procedures Referre d By Contact Referred To Contact Diagnoses Umbilical hernia UMBILICAL HERNIA Procedures REPAIR UMBILICAL SILKE,5+Y/O,REDUC HERNIA UMBILICAL REPAIR LAPAROSCOPIC ROBOTIC WITH MESH Canos, Philip Jose IV, DO [address] [place] [address] [facility] Reason Comments Med Refill Ordered Prescriptions (unrec ognized section and content) Prescription Sig Dispensed Refills Start Date End Da te ondansetron (ZOFRAN ODT) 4 MG disintegrating tablet Take 1 tablet by mouth every 6 hours as needed for Nausea or Vomiting 20 tablet 0 11/06/2020 docusate sodium (COLACE) 100 MG capsule Take 1 capsule by mouth 2 times daily 30 capsule 2 11/06/2020 HYDROcodone-acetaminophe n (NORCO) 5-325 MG per tabletIndications:Acute post-operative pain Take 1 tablet by mouth every 6 hours as needed for Pain for up to 7 days. Intended supply: 7 days. Take lowest dose possible to manage pain 28 tablet 0 11/06/2020 11/13/2020 Scheduled Active and Recently Administ ered Medications (unrecognized section and content) Medication Order 11/04/2020 11/05/2020 11/06/2020 ceFAZolin (ANCEF) 2000 mg in dextrose 5 % 50 mL IVPB (COMPLETED) 2,000 mg, Intravenous, ONCE, 1 dose, On Zandra 11/06/20 at 1300, 30 min preop, Pre-op (day of surgery) 1510 (Given - Provid er: MARY ALICE Pimentel CRNA) sodium chloride flush 0.9 % injection 10 mL 10 mL, Intravenous, EVERY 12 HOURS SCHEDULED (2 times per day), First dose on Zandra 11/06/20 at 2100, Pre-op (day of surgery) 2100 (Due) Continuous Medication Order 11/04/2020 11/05/2020 11/06/2020 0.9 % sodium chloride infusion Intravenous, at 125 mL/hr, CONTINUOUS, Starting on Zandra 11/06/20 at 1300, Pre-op (day of surgery) 1300 (Due) lactated ringers infusion Intravenous, at 125 mL/hr, CONTINUOUS, Starting on Zandra 11/06/20 at 1300, 0.9% sodium chloride infusion diabetic and/or renal failure patients at 125ml/hr, Pre-op (day of surgery) 1455 (New Bag - Prov ider: MARY ALICE Pimentel CRNA)1520 (New Bag - Provider: MARY ALICE Pimentel CRNA)1521 (Anesthesia Volume Adjustment - Provider: MARY ALICE Pimentel CRNA)1604 (Anesthesia Volume Adjustment - Provider: MARY ALICE Pimentel CRNA) PRN Medication Order 11/04/2020 11/05/2020 11/06/2020 0.9 % sodium chloride bolus 500 mL (4.45 mL/kg), Intravenous, at 250 mL/hr, Administer over 2 Hours, ONCE PRN, Nausea, Starting on Zandra 11/06/20 at 1354, For 1 dose, PACU only 0.9 % sodium chloride infusion 25 mL, Intravenous, at 100 mL/hr, PRN, If patient receiving piggyback infusions without ordered maintenance IV fluids or with frequent/long duration piggyback infusions, Starting on Zandra 11/06/20 at 1235, Administer at the same rate as the piggyback being infused., Pre-op (day of surgery) diphenhydrAMINE (BENADRYL) injection 12.5 mg 12.5 mg, Intravenous, ONCE PRN, Itching, Starting on Zandra 11/06/20 at 1354, For 1 dose, PACU only HYDROmorphone (DILAUDID) injection 0.25 mg 0.25 mg, Intravenous, EVERY 5 MIN PRN, Pain Moderate (4-6), Starting on Zandra 11/06/20 at 1354, For 4 doses, Phase I - Secondary therapy to be used after all initial moderate pain medication doses have been administered., PACU only HYDROmorphone (DILAUDID) injection 0.5 mg 0.5 mg, Intravenous, EVERY 5 MIN PRN, Pain Severe (7-10), Starting on Zandra 11/06/20 at 1354, For 4 doses, Phase I - Initial therapy for severe pain., PACU only HYDROmorphone (DILAUDID) injection 0.5 mg 0.5 mg, Intravenous, EVERY 5 MIN PRN, Pain Severe (7-10), Starting on Zandra 11/06/20 at 1354, For 4 doses, Phase I - Secondary therapy to be used after all initial severe pain medication doses have been administered., PACU only 1635 (Given - Provid er: Camila Villanueva RN) labetalol (NORMODYNE;TRANDATE) injection syringe 5 mg 5 mg, Intravenous, EVERY 10 MIN PRN, High Blood Pressure, Starting on Zandra 11/06/20 at 1354, PRN for SBP >160 for 2 consecutive measurements, if HR is 60 or greater. If beta barbie is contraindicated (HR less than 60, heart block, COPD or asthma) use hydralazine IV order., PACU only meperidine (DEMEROL) injection 12.5 mg 12.5 mg, Intravenous, EVERY 5 MIN PRN, Shivering, , Starting on Zandra 11/06/20 at 1354, May give every 5 minutes to max of 25mg., PACU only morphine (PF) injection 2 mg 2 mg, Intravenous, EVERY 5 MIN PRN, Pain Moderate (4-6), Starting on Zandar 11/06/20 at 1354, For 5 doses, Phase I - Initial therapy for moderate pain., PACU only ondansetron (ZOFRAN) injection 4 mg 4 mg, Intravenous, ONCE PRN, Nausea, Starting on Zandra 11/06/20 at 1354, For 1 dose, PACU only oxyCODONE-acetaminophen (PERCOCET) 5-325 MG per tablet 1 tablet (COMPLETED) 1 tablet, Oral, PRN, Pain Moderate (4-6), Starting on Zandra 11/06/20 at 1354, For 1 dose, PHASE II, PACU only 1713 (Given - Provid er: Camila Villanueva RN) promethazine (PHENERGAN) injection 12.5 mg 12.5 mg, Intravenous, EVERY 15 MIN PRN, Nausea, Starting on Zandra 11/06/20 at 1354, For 2 doses, Recommended route is IM. Caution if used IV:Check IV site for infiltrate prior to and during administration. Secondary antiemetic therapy. For IV administration, dilute to 10ml with normal saline. Must be administered over at least 10 minutes., PACU only sodium chloride flush 0.9 % injection 10 mL 10 mL, Intravenous, PRN, Line Care, After every IV line use, Starting on Zandra 11/06/20 at 1235, Pre-op (day of surgery) No Frequency Medication Order 11/04/2020 11/05/2020 11/06/2020 bacitracin 500 UNIT/GM ointment Starting on Zandra 11/06/20 at 1604, For 1 dose, THERESA RIVERA: cabinet override 1615 (Due) fentaNYL (SUBLIMAZE) 100 MCG/2ML injection (COMPLETED) Starting on Zandra 11/06/20 at 1306, For 1 dose, Therese Collado: cabinet override 1425 (Given - Provid er: Therese Collado, GORDON) midazolam (VERSED) 2 MG/2ML injection (COMPLETED) Starting on Zandra 11/06/20 at 1306, For 1 dose, Therese Collado: cabinet override 1424 (Given - Provid er: Therese Collado RN) INFORMATION SOURCE (unrecogn ized section and content) DATE CREATED AUTHOR 11/11/2020 [facility] DATE CREATED AUTHOR AUTHOR'S ORGANIZ ATION 11/03/2022 [facility] DATE CREATED AUTHOR AUTHOR'S ORGANIZ ATION 11/01/2023 [facility] Care Teams (unrecognized sec tion and content) Document Analyst Relationship Specialty Start Date End Date Leeroy Mckeon MD PCP - General Family Medicine 02/18/23 FOR RECORDS PERTAINING TO PATIENTS WHO ARE OR HAVE BEEN ENROLLED IN A CHEMICAL DEPENDENCY/SUBSTANCEABUSE PROGRAM, SOME INFORMATION MAY BE OMITTED. This clinical summary was aggregated from multiple sources. Caution should be exercised in using it in the provision of clinical care. This summary normalizes information from multiple sources, and as a consequence, information in this document may materially change the coding, format and clinical context of patient data. In addition, data may be omitted in some cases. CLINICAL DECISIONS SHOULD BE BASED ON THE PRIMARY CLINICAL RECORDS. [employer] provides no warranty or guarantee of the accuracy or completeness of information in this document.
[2023-12-13 11:21] VITALS: BP 154/83; PULSE 56; TEMP 36.1; O2SAT 97; BMI 47.0
[2023-12-13] MEDS: LACTATED RINGER'S SOLUTION 1,000 ML 50 ML IV (11:39)
--- NOTE | 2023-12-13 13:05 | W.PM.PROCNOT ---
Date of procedure: 12/13/23 Pre-op diagnosis: diagnostic colonoscopy, + FIT test Post-op diagnosis: other (40cm and 20cm small subcentimeter hyperplastic appearing lesions removed via snare biopsy) Procedure: Previous colonoscopy: never procedure: diagnostic colonoscopy The patient was given IV conscious sedation.? The patient's SPO2 remained above 90% throughout the procedure. The colonoscope was inserted per rectum and advanced under direct vision to the cecum with some difficulty.? The prep was fair.? Findings: Terminal ileum os: normal Cecum/Ascending colon: normal Transverse colon: normal Descending/Sigmoid colon: 40cm and 20cm small subcentimeter hyperplastic appearing lesions removed via snare biopsy; 3 in total Rectum/Anus: examined in normal and retroflexed positions and was normal Withdrawal Time was (minutes): 12 The colon was decompressed and the scope was removed.? The patient tolerated the procedure well. Recommendations/Plan: 1.? Lifestyle and dietary modifications as discussed 2.? F/U Biopsies 3.? F/U in 10 days 4.? Discussed with the family Anesthesia: MAC Surgeon: Chris Vergara Estimated blood loss (mL): 1 Pathology: other (40cm and 20cm small subcentimeter hyperplastic appearing lesions removed via snare biopsy) Condition: stable Disposition: PACU
[2023-12-13 13:49] VITALS: BP 129/80; PULSE 63; TEMP 36.6; O2SAT 99
[2023-12-13 14:04] VITALS: BP 130/76; PULSE 62; O2SAT 100
[2023-12-13 14:19] VITALS: BP 166/79; PULSE 56; O2SAT 99
== END 2023-12-13 14:19 | disposition home or self-care (01) ==
PROVIDERS: PCP Family Medicine; Visit Provider Surgery
PROC: (CPT 00812; principal; 2023-12-13 12:05)
DX: Z12.11 Encounter for screening for malignant neoplasm of colon (principal); D12.4 Benign neoplasm of descending colon; Z87.891 Personal history of nicotine dependence; Z98.84 Bariatric surgery status; E66.01 Morbid (severe) obesity due to excess calories; Z68.42 Body mass index [BMI] 45.0-49.9, adult; I10 Essential (primary) hypertension
CPT/HCPCS: 00812; 45385; 88305; J2704

== ENCOUNTER 2024-01-30 21:45 | Emergency (ER) | payer OTHER, SELFPAY ==
--- OUTSIDE RECORDS SUMMARY | 2024-01-30 21:54 | XMS_ITS | CCD ---
Author Organization [facility] Care Team Providers Care Supervisor [employer] Name Role Phone Mike DIXON, Leeroy Mulligan Primary Care Provider CANOS IV, PHILIP JOSE Admitting Unavaila ble CANOS IV, PHILIP GARCIA Attending Unavaila ble MIKE, LEEROY MULLIGAN Primary Care Unavailabl e CANOS IV, PHILIP GARCIA Referring Unavaila ble MIKE, LEEROY MULLIGAN Primary Care Unavailabl e NADERER, DR LEEROY Farah Admitting Unavailable MIKE, DR LEEROY Farah Primary Care Unavailable MIKE, DR LEEROY Farah Consulting Unavailable MIKE, DR LEEROY Farah Attending Unavailable NADMATTHEW, DR LEEROY Farah Admitting Unavailable ZIEBER, DR DANTE Wallace Consulting Unavailable MIKE, DR LEEROY Farah Primary Care Unavailable NADMATTHEW, DR LEEROY Farah Attending Unavailable MIKE, DR LEEROY Farah Consulting Unavailable Leeroy Mckeon MD Primary Care Provider MERON VERGARA Attending Unavailable LEEROY MCKEON Referring Unavailable DO Meron Vergara Attending Provider Meron Vergara Attending Unavailable Meron Vergara Admitting Unavailable Medications Current Medications Medication Drug Class(es) [...] pain 28 tablet 0 11/06/2020 11/13/2020 Active ascorbic acid 500 mg oral tablet (1 source) Vitamin C Start: 04-20-2020 take 1 tablet by mouth once daily Ascorbic Acid (Vitamin C) (Vitamin C) 500 mg Tablet Active 500 MG PO Daily April 20, 2020 12:00am aspirin 81 mg chewable tablet (2 sources) Platelet Aggregation Inhibitor, Nonsteroidal Anti-inflammatory Drug take 1 tablet by mouth once daily aspirin 81 MG chewable tablet Take 81 mg by mouth daily 0 Active busPIRone hydrochloride 7.5 mg oral tablet (4 sources) Start: 04-22-2020 take 1 tablet by mouth in the [...] 0 11/06/2020 Discontinued (LIST CLEANUP) calcium carbonate 1250 mg oral tablet (3 sources) Start: 04-20-2020 take 1 tablet by mouth once daily Calcium Carbonate (Calcium 500) 500 mg calcium (1,250 mg) Tablet Active 500 MG PO Daily April 20, 2020 12:00am take 1 tablet by mouth once priscila y calcium carbonate (OSCAL) 500 MG TABS tablet Take 500 mg by mouth daily 0 Active calcium chloride 0.0014 meq/ml / potassium chloride 0.004 meq/ml / sodium chloride 0.103 meq/ml / sodium lactate 0.028 meq/ml injectable solution (1 source) Start: 11-06-2020 lactated ringe rs infusion cholecalciferol 0.05 mg oral tablet (3 sources) Vitamin D Start: 04-20-2020 take 1 tablet by mouth once daily Cholecalciferol (Vitamin D3) (Vitamin D3) 50 mcg (2,000 unit) Tablet Active 2000 UNIT PO Daily April 20, 2020 12:00am Cholecalciferol (VITAMIN D3) 50 MCG (2000 UT) CAPS Take by mouth 0 Active diazePAM 5 mg oral tablet (1 source) Benzodiazepine Start: 04-19-2020 take 5 mg by mouth at bedtime Diazepam Active 5 MG PO Bedtime April 19, 2020 12:00am 1 ml diphenhydrAMINE hydrochloride 50 mg/ml cartridge (1 source) Histamine-1 Receptor Antagonist Start: 11-06-2020 End: 11-06-2020 diphenhydrAMINE (BENADRYL) injection 12.5 mg docosahexaenoic acid 120 mg / eicosapentaenoic acid 180 mg oral capsule (2 sources) take 1 capsule by mouth three times daily [place]-3 Fatty Acids (FISH OIL) 1000 MG CAPS Take 3,000 mg by mouth 3 times daily 0 Active docusate sodium 100 mg oral capsule (1 source) Start: 11-06-2020 take 1 capsule by mouth twice daily docusate sodium (COLACE) 100 MG capsule Take 1 capsule by mouth 2 times daily 30 capsule 2 11/06/2020 Active labetalol (NORMODYNE;TRANDATE) injection syringe 5 mg (1 source) Start: 11-06-2020 labetalol (NORMODYNE;TRANDATE ) injection syringe 5 mg LORazepam 1 mg oral tablet (1 source) Benzodiazepine Start: 07-28-2023 take 1 tablet by mouth three times daily as needed LORazepam (Ativan) 1 MG tablet Indications: VIANCA (generalized anxiety disorder) (CMS/HCC) TAKE 1 TABLET BY MOUTH THREE TIMES DAILY NEEDED 90 tablet 1 07/28/2023 Active Start: 07-28-2023 take 1 tablet by cinthia th three times daily as needed LORazepam (Ativan) 1 MG tablet Indications: VIANCA (generalized anxiety disorder) (CMS/HCC) TAKE 1 TABLET BY MOUTH THREE TIMES DAILY NEEDED 90 tablet 1 07/28/2023 Active 1 ml meperidine hydrochloride 50 mg/ml injection (1 source) Opioid Agonist Start: 11-06-2020 meperidine (DEMEROL) injection 12.5 mg metoprolol tartrate 50 mg oral tablet (3 sources) beta-Adrenergic Barbie Start: 04-19-2020 take 50 mg by mouth twice daily Metoprolol Tartrate Active 50 MG PO Twice daily April 19, 2020 12:00am 1 ml morphine sulfate 2 mg/ml cartridge (1 source) Opioid Agonist Start: 11-06-2020 morphine (PF) injection 2 mg Multiple Vitamins-Minerals (THERAPEUTIC MULTIVITAMIN-MINERALS ) tablet (2 sources) take 1 tablet by mouth once daily Multiple Vitamins-Minerals (THERAPEUTIC MULTIVITAMIN-MINERAL S) tablet Take 1 tablet by mouth daily 0 Active Multivitamin preparation (1 source) Start: 04-20-2020 take 1 tablet by mouth once daily Multivitamin Active 1 TAB PO Daily April 20, 2020 12:00am ondansetron 4 mg disintegrating oral tablet (2 [...] Start: 11-06-2020 promethazine (PHENERGAN) injection 12.5 mg QUEtiapine 300 mg oral tablet (4 sources) Atypical Antipsychotic Start: 04-20-2020 End: 04-22-2020 take 300 mg by mouth once daily at bedtime Quetiapine Active 300 MG PO Daily at bedtime April 22, 2020 1:00am take 1 tablet by mouth once priscila y QUEtiapine (SEROQUEL XR) 300 MG extended release tablet Take 300 mg by mouth nightly 0 Active sertraline 100 mg oral tablet (3 sources) Serotonin Reuptake Inhibitor Start: 04-19-2020 take 200 mg by mouth once daily Sertraline Active 200 MG PO Daily April 19, 2020 12:00am take 1 tablet by mouth once priscila y sertraline (ZOLOFT) 100 MG tablet Take 100 mg by mouth daily 0 Active 3 ml sodium chloride 9 mg/ml injection (7 sources) Start: 11-06-2020 sodium chlorid e flush 0.9 % injection 10 mL Start: 11-06-2020 End: 11-06-2020 0.9 % sodium chloride bolus Start: 11-06-2020 sodium chlorid e flush 0.9 % injection 10 mL Start: 11-06-2020 0.9 % sodium c hloride infusion Start: 10-28-2020 sodium chlorid e flush 0.9 % injection 10 mL Start: 10-28-2020 End: 10-28-2020 0.9 % sodium chloride bolus Zinc (2 sources) Start: 04-20-2020 take 50 mg by mouth once daily Zinc Active 50 MG PO Daily April 20, 2020 12:00am take 1 tablet by mouth once priscila [...] MALIG NEOPLASM OF BREAST] Onset: 10-13-2022 Episodic Schizophrenia and other psychotic disorders (1 source) Schizoaffective disorder; Translations: [Schizoaffective disorder, unspecified] 04-19-2020 Chronic Results Test Name Value Interpretation Reference Range Facility [facility] 12-13-2023 L Specimen: [id number] Received: 12/14/23 Status: RILEY Charles Num: [id number] Spec Type: Surgical Subm Dr: Meron Vergara DO Tissues: A Colon Biopsy (DESC POLYP 40 CM) B Colon Biopsy (DESC POLYP 20 CM) Procedures: HE/4, Gross/Micro L4/2 Age/ Patient Sex Location Account Attending Physician Becky Hardwick 58/F LABELL [id number] Meron Vergara DO SPEC NUM: [id number] RECD: 12/14/23 STATUS: RILEY CHARLES NUM: [id number] TYLER: 12/13/[address]: Meron Vergara DO ENTERED: 12/14/23 [facility] DR: Barbie Maldonado SPEC TYPE: Surgical DEPT: MARILYN PATTERSON ORDERED: HE/4, Gross/Micro L4/2 ORDERED: HE/4, Gross/Micro L4/2 Pathological Diagnosis A. Polyp, descending colon at 40 cm, biopsy: Tubular Adenoma. - Negative For High Grade Dysplasia And Malignancy. B. Polyp, descending colon at 20 cm, biopsy: Tubular Adenoma. - Negative For High Grade Dysplasia And Malignancy. Clinical Information Screening colonoscopy, polyp biopsies at 20 cm and 40 cm Gross Description Received are 2 formalin filled containers each labeled with the patient's name, date of and specific specimen site. A. Further labeled descending colon polyp biopsy at 40 cm is a 0.3 x 0.3 x 0.1 cm hernandez polypoid tissue fragment, entirely submitted in A1. B. Further labeled descending colon polyp biopsy at 20 cm is a 0.4 x 0.2 x 0.1 cm hernandez polypoid tissue fragment, entirely submitted in B1. Specimen: [id number] Received: 12/14/23 Status: RILEY Charles Num: [id number] Spec Type: Surgical Subm Dr: Meron Vergara DO Tissues: A Colon Biopsy (DESC POLYP 40 CM) B Colon Biopsy (DESC POLYP 20 CM) Procedures: Lena SEGUNDO/Sarahy L4/2 Patient: Becky Hardwick [id number] (Continued) Specimen: [id number] Received: 12/14/23 (Continued) Signed (signature on file) Candace Prasad MD 12/15/23 1558 Specimen: [id number] Received: 12/14/23 Status: RILEY Charles Num: [id number] Spec Type: Surgical Subm Dr: Meron Vergara DO Tissues: A Colon Biopsy (DESC POLYP 40 CM) B Colon Biopsy (DESC POLYP 20 CM) Procedures: Lena SEGUNDO/Sarahy L4/2 Patient: Becky Hardwick [id number] (Continued) Specimen: [id number] Received: 12/14/23 (Continued) CPT Codes 94876n4 Specimen: [id number] Received: 12/14/23 Status: RILEY Charles Num: [id number] Spec Type: Surgical Subm Dr: Meron Vergara DO Tissues: A Colon Biopsy (DESC POLYP 40 CM) B Colon Biopsy (DESC POLYP 20 CM) Procedures: HE/Caitlyn, Gross/Micro L4/2 Patient: Becky Hardwick [id number] (Continued) Signed (signature on file) Candace Prasad MD 12/15/23 1558 Normal [facility] MG MAMM SCREEN 3D GABRIEL CADon 10-07-2022 MG MAMM SCREEN 3D GABRIEL CAD Patient: BECKY HARDWICK. Exam Date: 10/07/2022 : 1965 Gender:F Ordering : DR LEEROY MCKEON . Admission #: [id number] Family : Order #: [id number] CLICK HERE TO VIEW EXAM RADIOLOGY REPORT [...] breast cancer at age 59. LOCATION: [facility] BREAST COMPOSITION: Scattered areas fibroglandular density. FINDINGS: [...] M.D. on 10/07/2022 at 14:39 Normal [facility] CBC AUTO DIFFon 07-28-2022 BASO # 0.0 103/ul Normal 0.0-0.1 [facility] Comment on above: Performed By: #### C BC #### [facility] [address] [address] [address] Mary Bolanos Basophils/100 WBC (Bld) 1.0 % Normal 0.2-2.0 [facility] Comment on above: Performed By: #### C BC #### [facility] [address] [address] [address] Mary Bolanos EO # 0.1 103/ul Normal 0.0-0.7 [facility] Comment on above: Performed By: #### C BC #### [facility] [address] [address] [address] Mary Bolanos Eosinophils/100 WBC (Bld) 2.8 % Normal 0.9-7.0 [facility] Comment on above: Performed By: #### C BC #### [facility] [address] [address] [address] Mary Bolanos Erythrocyte distribution width (RBC) [Ratio] 14.5 % Normal 11.0-15.0 [facility] Comment on above: Performed By: #### C BC #### [facility] [address] [place] [address] Dr. Mary Bolanos Hematocrit (Bld) [Volume fraction] 40.4 % Normal 36.0-48.0 [facility] Comment on above: Performed By: #### C BC #### [facility] [address] [place] [address] Dr. Mary Bolanos Hemoglobin (Bld) [Mass/Vol] 12.3 g/dL Normal 12.0-16.0 [facility] Comment on above: Performed By: #### C BC #### [facility] [address] [place] [address] Dr. Mary Bolanos IG # 0.01 10e3/ul Normal 0.00-0.03 [facility] Comment on above: Performed By: #### C BC #### [facility] [address] [place] [address] Dr. Mary Bolanos IG % 0.3 % Normal 0.0-0.5 [facility] Comment on above: Performed By: #### C BC #### [facility] [address] [place] [address] Dr. Mary Bolanos LYMPH # 1.9 103/ul Normal 1.2-3.8 [facility] Comment on above: Performed By: #### C BC #### [facility] [address] [place] [address] Dr. Mary Bolanos Lymphocytes/100 WBC (Bld) 48.0 % Normal 20.5-60.0 [facility] Comment on above: Performed By: #### C BC #### [facility] [address] [place] [address] Dr. Mary Bolanos MANUAL DIFF REQ NO Normal [facility] Comment on above: Performed By: #### C BC #### [facility] [address] [place] [address] Dr. Mary Bolanos MCH (RBC) [Entitic mass] 28.2 pg Normal 26.7-34.0 [facility] Comment on above: Performed By: #### C BC #### [facility] [address] [address] [address] Mary Bolanos MCHC (RBC) [Mass/Vol] 30.4 g/dL Normal 29.9-35.2 [facility] Comment on above: Performed By: #### C BC #### [facility] [address] [address] [address] Mary Bolanos MCV (RBC) [Entitic vol] 92.7 fL Normal 81.0-99.0 [facility] Comment on above: Performed By: #### C BC #### [facility] [address] [address] [address] Mary Bolanos MONO # 0.3 103/ul Normal 0.3-0.8 [facility] Comment on above: Performed By: #### C BC #### [facility] [address] [place] [address] Dr. Mary Bolanos Monocytes/100 WBC (Bld) 7.8 % Normal 1.7-12.0 [facility] Comment on above: Performed By: #### C BC #### [facility] [address] [place] [address] Dr. Mary Bolanos NEUT # 1.6 103/ul Normal 1.4-6.5 [facility] Comment on above: Performed By: #### C BC #### [facility] [address] [place], [place] [id number] Dr. Mary Bolanos Neutrophils/100 WBC (Bld) 40.1 % Critically low 43.0-75.0 [facility] Comment on above: Performed By: #### C BC #### [facility] [address] [place], [place] [address] Dr. Mary Bolanos Platelet mean volume (Bld) [Entitic vol] 9.0 fL Critically low 9.5-13.5 [facility] Comment on above: Performed By: #### C BC #### [facility] [address] [place] [address] Dr. Mary Bolanos PLT 291 103/ul Normal 150-450 [facility] Comment on above: Performed By: #### C BC #### [facility] [address] [address] [address] Mary Bolanos RBC 4.36 106/ul Normal 4.20-5.40 [facility] Comment on above: Performed By: #### C BC #### [facility] [address] [place] [address] Dr. Mary Bolanos WBC 4.0 103/ul Normal 4.0-11.0 [facility] Comment on above: Performed By: #### C BC #### [facility] [address] [place] [address] Dr. Mary Bolanos GLYCOHEMOGLOBIN A1Con 2022 ADA RECOMMENDATION SEE BELOW Normal [facility] Comment on above: Result Comment: ADA RECOMMENDED LIMIT 4.0 - 6.0 ADA THERAPEUTIC TARGET < 7.0 ACTION SUGGESTED > 7.0 Performed By: #### A 1C #### [facility] [address] [place] [address] Dr. Mary Bolanos Glucose [Mass/Vol] 103 mg/dL Normal [facility] Comment on above: Performed By: #### A 1C #### [facility] [address] [place] [address] Dr. Mary Bolanos HbA1c (Bld) [Mass fraction] 5.2 % Normal 4.5-6.2 [facility] Comment on above: Performed By: #### A 1C #### [facility] [address] [place] [address] Dr. Mary Bolanos LIPID PROFILEon 07-28-2022 CHOL-HDL RATIO NORM SEE BELOW Normal [facility] Comment on above: Result Comment: 3.3 - 4.4 LOW RISK 4.4 - 7.1 AVERAGE RISK 7.1 - 11.0 MODERATE RISK >11.0 HIGH RISK Performed By: #### T SH, LIPID, BMP, LIVER #### [facility] [address] [place] [address] Dr. Mary Bolanos Cholesterol [Mass/Vol] 214 mg/dL Critically high <=200 [facility] Comment on above: Performed By: #### T SH, LIPID, BMP, LIVER #### [facility] [address] [place] [address] Dr. Mary Bolanos Cholesterol in HDL [Mass/Vol] 64 mg/dL Critically high 40-60 [facility] Comment on above: Performed By: #### T SH, LIPID, BMP, LIVER #### [facility] [address] [address] [address] Mary Bolanos Cholesterol in LDL [Mass/Vol] 132.2 mg/dL Normal [facility] Comment on above: Performed By: #### T SH, LIPID, BMP, LIVER #### [facility] [address] [address] [address] Mary Bolanos Cholesterol.total/Cho lesterol in HDL [Mass ratio] 3.3 {ratio} Normal [facility] Comment on above: Performed By: #### T SH, LIPID, BMP, LIVER #### [facility] [address] [place] [address] Dr. Mary Bolanos HDL NORMAL > or = 60 mg/dl - LOW CARDIOVASCULAR RISK <40 mg/dl - HIGH CARDIOVASCULAR RISK Normal [facility] Comment on above: Performed By: #### T SH, LIPID, BMP, LIVER #### [facility] [address] [place] [address] Dr. Mary Bolanos LDL CALC NORMAL SEE BELOW Normal [facility] Comment on above: Result Comment: <100 mg/dl OPTIMAL 100 - 129 mg/dl NEAR OR ABOVE OPTIMAL 130 - 159 mg/dl BORDERLINE HIGH 160 - 189 mg/dl HIGH >190 mg/dl VERY HIGH Performed By: #### T SH, LIPID, BMP, LIVER #### [facility] [address] [place] [address] Dr. Mary Bolanos Triglyceride [Mass/Vol] 89 mg/dL Normal <=150 [facility] Comment on above: Performed By: #### T SH, LIPID, BMP, LIVER #### [facility] [address] [place] [address] Dr. Mary Bolanos VLDL CALC 17.8 mg/dL Normal [facility] Comment on above: Performed By: #### T SH, LIPID, BMP, LIVER #### [facility] [address] [address] [address] Mary Bolanos LIVER PROFILEon 07-28-2022 Albumin [Mass/Vol] 3.4 g/dL Normal 3.4-5.0 [facility] Comment on above: Performed By: #### T SH, LIPID, BMP, LIVER #### [facility] [address] [place] [address] Dr. Mary Bolanos Albumin/Globulin [Mass ratio] 0.8 {ratio} Normal [facility] Comment on above: Performed By: #### T SH, LIPID, BMP, LIVER #### [facility] [address] [place] [address] Dr. Mary Bolanos ALP [Catalytic activity/Vol] 96 U/L Normal 46-116 [facility] Comment on above: Performed By: #### T SH, LIPID, BMP, LIVER #### [facility] [address] [place] [address] Dr. Mary Bolanos ALT [Catalytic activity/Vol] 32 U/L Normal 14-59 [facility] Comment on above: Performed By: #### T SH, LIPID, BMP, LIVER #### [facility] [address] [place] [address] Dr. Mary Bolanos AST [Catalytic activity/Vol] 25 U/L Normal 15-37 [facility] Comment on above: Performed By: #### T SH, LIPID, BMP, LIVER #### [facility] [address] [place] [address] Dr. Mary Bolanos BILI, CONJUGATED 0.1 mg/dL Normal 0.0-0.2 [facility] Comment on above: Performed By: #### T SH, LIPID, BMP, LIVER #### [facility] [address] [place] [address] Dr. Mary Bolanos Bilirubin [Mass/Vol] 0.3 mg/dL Normal 0.2-1.0 [facility] Comment on above: Performed By: #### T SH, LIPID, BMP, LIVER #### [facility] [address] [place] [address] Dr. Mary Bolanos Globulin (S) [Mass/Vol] 4.1 g/dL Normal [facility] Comment on above: Performed By: #### T SH, LIPID, BMP, LIVER #### [facility] [address] [place] [address] Dr. Mary Bolanos Protein [Mass/Vol] 7.5 g/dL Normal 6.4-8.2 [facility] Comment on above: Performed By: #### T SH, LIPID, BMP, LIVER #### [facility] [address] [place] [address] Dr. Mary Bolanos PROF CHEM 8 (BAS METB)on Anion gap [Moles/Vol] 8.5 mmol/L Normal [facility] Comment on above: Performed By: #### T SH, LIPID, BMP, LIVER #### [facility] [address] [place] [address] Dr. Mary Bolanos Calcium [Mass/Vol] 8.8 mg/dL Normal 8.5-10.1 [facility] Comment on above: Performed By: #### T SH, LIPID, BMP, LIVER #### [facility] [address] [place] [address] Dr. Mary Bolanos Chloride [Moles/Vol] 106 mmol/L Normal 98-107 [facility] Comment on above: Performed By: #### T SH, LIPID, BMP, LIVER #### [facility] [address] [place] [address] Dr. Mary Bolanos CO2 [Moles/Vol] 31.3 mmol/L Normal 21.0-32.0 [facility] Comment on above: Performed By: #### T SH, LIPID, BMP, LIVER #### [facility] [address] [place] [address] Dr. Mary Bolanos Creatinine [Mass/Vol] 1.13 mg/dL Critically high 0.55-1.02 [facility] Comment on above: Performed By: #### T SH, LIPID, BMP, LIVER #### [facility] [address] [place] [address] Dr. Mary Bolanos EGFR-AF LATVIAN >60 Normal >=60 [facility] Comment on above: Performed By: #### T SH, LIPID, BMP, LIVER #### [facility] [address] [place] [address] Dr. Mary Bolanos EGFR-NON AF LATVIAN 50 mL/min/1.73m2 Critically low >=60 [facility] Comment on above: Performed By: #### T SH, LIPID, BMP, LIVER #### [facility] [address] [address] [address] Mary Bolanos Glucose [Mass/Vol] 96 mg/dL Normal 74-106 [facility] Comment on above: Performed By: #### T SH, LIPID, BMP, LIVER #### [facility] [address] [place] [address] Dr. Mary Bolanos Potassium [Moles/Vol] 4.8 mmol/L Normal 3.5-5.1 [facility] Comment on above: Performed By: #### T SH, LIPID, BMP, LIVER #### [facility] [address] [place] [address] Dr. Mary Bolanos Sodium [Moles/Vol] 141 mmol/L Normal 136-145 [facility] Comment on above: Performed By: #### T SH, LIPID, BMP, LIVER #### [facility] [address] [address] [address] Mary Bolanos Urea nitrogen [Mass/Vol] 14.0 mg/dL Normal 7.0-18.0 [facility] Comment on above: Performed By: #### T SH, LIPID, BMP, LIVER #### [facility] [address] [place] [address] Dr. Mary Bloanos Urea nitrogen/Creatinine [Mass ratio] 12.4 mg/mg Normal [facility] Comment on above: Performed By: #### T SH, LIPID, BMP, LIVER #### [facility] [address] [place] [address] Dr. Mary Bolanos TSHon 07-28-2022 TSH 2.034 uIU/mL Normal 0.358-3.740 [facility] Comment on above: Performed By: #### T SH, LIPID, BMP, LIVER #### [facility] [address] [place] [address] Dr. Mary Bolanos COVID-19, RapidOrdered By: Madison Brown on 11-06-2020 SARS-CoV-2 (COVID-19) RNA NEIL+probe Ql (Unsp spec) Not detected Not Detected [employer] Phone: Comment on above: Rapid NAAT: The [...] management decisions. Fact sheet for Healthcare Providers: https://www.fda.gov/media/727845/download Fact sheet for Patients: https://www.fda.gov/media/671437/download Methodology: Isothermal Nucleic Acid Amplification Specimen Description .NASOPHARYNGEAL SWAB [employer] Phone: [employer] Phone: [id number] 11-06-2020 SARS-CoV-2 (COVID-19) RNA NEIL+probe Ql (Unsp spec) Not detected Normal NOTDET [facility] Comment on above: Result Comment: Rapid NAAT: [...] management decisions. Fact sheet for Healthcare Providers: https://www.fda.gov/media/526215/download Fact sheet for Patients: https://www.fda.gov/media/865467/download Methodology: Isothermal Nucleic Acid Amplification Performed By: #### C OVRB #### [facility] [id number] [place] [id number] Butt Presser: Siddharth Nunes MD Surgical Pathologyon Surgical Pathology (NOTE) -- Diagnosis -- Umbilical region, excision: Benign epithelial inclusion cyst. Hina Younger Electronically Signed Out rdd/11/10/2020 Clinical Information Pre-op Diagnosis: UMBILICAL HERNIA Operative Findings: UMBILICAL CYST Operation Performed: ATTEMPTED HERNIA REPAIR CONVERTED TO DIAGNOSTIC ROBOTIC LAPAROSCOPY WITH EXCISION OF UMBILICAL CYST Source of Specimen 1: UMBILICAL CYST Gross Description BECKY HARDWICK, UMBILICAL CYST 2.5 x 2.5 x 1.5 cm disrupted unilocular cyst with copious friable hernandez material. Obvious tissue entirely 1cs. tm Microscopic Description Sections show fibrous cyst wall and internal lining of stratified squamous epithelium keratinization. There is no atypia or malignancy. SURGICAL PATHOLOGY CONSULTATION Patient Name: BECKY HARDWICK [facility] Rec: [id number] Path Number: [id number] [facility] [email or web address] [facility] ANATOMIC PATHOLOGY [address] [place] [id number] [facility] Comment on above: Performed By: #### P PPVS #### [facility] [employer] [address] [place] [address] [id number] Butt Presser: Primo King MD CT ABDOMEN PELVIS W [...] Kalia Fong MD 10/28/20 Final result Normal [facility] CT ABDOMEN PELVIS W IV CONTR AST Additional Contrast? OralOrdered By: Philip Brown on 10-28-2020 No acute disease. No radiodense urolithiasis or right inguinal hernia. Increased stool. [facility] [employer] Work Phone: EXAMINATION: CT OF THE ABDOMEN AND [...] is no pathologic adenopathy. Bones/Soft Tissues: Normal [employer] Phone: Jose, Mhpn Incoming Radiant Results From [employer] - 10/28/2020 9:25 PM EDT EXAMINATION: CT [...] urolithiasis or right inguinal hernia. Increased stool. [employer] Phone: Creatinine w/GFRon 1 (cont.) Normal [facility] Comment on above: Result Comment: Aver age GFR for 50-59 years old: 93 mL/min/1.73sq m Chronic Kidney Disease: <60 mL/min/1.73sq m Kidney failure: <15 mL/min/1.73sq m eGFR calculated using average adult body mass. Additional eGFR calculator available at: http://www.[employer].com/multiple_crcl_2012.htm Performed By: #### C REG #### [place] [address] Butt Presser: Siddharth Nunes MD Creatinine [Mass/Vol] 0.82 mg/dL Normal 0.50-0.90 [facility] Comment on above: Performed By: #### C REG #### [place] [address] Butt Presser: Siddharth Nunes MD GFR, Amer >60 Normal >60 [facility] Comment on above: Performed By: #### C REG #### [place] [address] Butt Presser: Siddharth Nunes MD GFR,non Amer >60 Normal >60 [facility] Comment on above: Performed By: #### C REG #### [place] [address] Butt Presser: Siddharth Nunes MD Staging: NOT REPORTED Normal [facility] Comment on above: Performed By: #### C REG #### [place] [address] Butt Presser: Siddharth Nunes MD Creatinine, SerumOrdered By: Philip Brown on 10-28-2020 Creatinine [Mass/Vol] 0.82 mg/dL 0.50 - 0.90 mg/dL [employer] Phone: GFR >60 >60 mL/min [employer] Phone: GFR Non- >60 >60 mL/min [employer] Work Phone: GFR/1.73 sq M.predicted MDRD (S/P/Bld) [Vol rate/Area] [employer] Phone: Comment on above: Average GFR for 50-5 9 years old: 93 mL/min/1.73sq m Chronic Kidney Disease: <60 mL/min/1.73sq m Kidney failure: <15 mL/min/1.73sq m eGFR calculated using average adult body mass. Additional eGFR calculator available at: http://www.[employer]ar[employer]a/multiple_crcl_2012.htm GFR/1.73 sq M.predicted MDRD (S/P/Bld) [Vol rate/Area] NOT REPORTED [employer] Phone: Vital Signs Date Time Vital Sign Value Performing Clinician Faci lity 11-06-2020 17:15-0400 Diastolic blood pressure 76 mm[Hg] Philip Canos IV, DO Work Phone: [employer] Phone: 11-06-2020 17:15-0400 Heart rate 48 /min Philip Canos IV, DO Work Phone: [employer] Phone: 11-06-2020 17:15-0400 Respiratory rate 20 /min Philip Canos IV, DO Work Phone: [employer] Phone: 11-06-2020 17:15-0400 SaO2% (BldA) [Mass fraction] 100 % Philip Canos IV, DO Work Phone: [employer] Phone: 11-06-2020 17:15-0400 Systolic blood pressure 154 mm[Hg] Philip Canos IV, DO Work Phone: [employer] Phone: 11-06-2020 16:30-0400 Body temperature 97.2 [degF] Philip Canos IV, DO Work Phone: [employer] Phone: 11-06-2020 12:49-0400 Body height 162.6 cm Philip Canos IV, DO Work Phone: [employer] Work Phone: 11-06-2020 12:49-0400 Body mass index (BMI) [Ratio] 42.53 kg/m2 Philip Canos IV, DO Work Phone: [employer] Work Phone: 11-06-2020 12:49-0400 Body weight 112.4 kg Philip Canos IV, DO Work Phone: [employer] Work Phone: Encounters Encounter Date Encounter Type Care Provider Facility Start: 12-13-2023 End: 12-13-2023 ambulatory Meron Vergara [facility] Work Phone: Start: 12-13-2023 End: 12-13-2023 Departed Referred DO Meronhany Vergara Work Phone: [facility] Path Spec [facility] Start: 10-31-2023 End: 10-31-2023 ambulatory MERON VERGARA Not Available Start: 07-26-2023 Refill Leeroy Bentley [facility] Comment on above: VIANCA (generalized anx iety disorder) (CMS/[facility]) (Primary Dx) Start: 10-07-2022 End: 10-08-[address] LEEROY MCKEON Facility:[facility] Start: 07-30-2022 Encounter for genera l adult medical examination without abnormal findings DR LEEROY MCKEON [facility] Start: 07-28-2022 End: 07-29-[address] LEEROY MCKEON Facility:[facility] Start: 07-28-2022 End: 07-29-2022 Encounter for general adult medical examination without abnormal findings DR LEEROY MCKEON Facility:[facility] Start: 11-06-2020 End: 11-06-2020 ambulatory PHILIP GARCIA CANOS IV [facility] Start: 11-06-2020 End: 11-06-2020 Patient encounter status Philip Vuongos DO Work Phone: [facility] [place] Start: 11-06-2020 End: 11-06-2020 Subsequent hospital visit by physician Philip Jose Brown DO Work Phone: [facility] Comment on above: Pre-op testing (Prim juliet Dx); Acute post-operative pain Start: 10-28-2020 End: 10-31-2020 ambulatory PHILIP VUONGOS IV [facility] Start: 10-28-2020 End: 10-30-2020 [facility] CT Scan Comment on above: Right groin pain Procedures Date Procedure Procedure Detail Performing Clinician Start: 11-06-2020 COVID-19, RAPID Philip Brown DO Work Phone: Start: 10-28-2020 Ct abdomen & pelvis w/contrast material Philip Brown DO Work Phone: Start: 10-28-2020 Creatinine blood Lorena Garcia Canos DO Work Phone: Plan of Treatment Date Care Activity Detail Author Start: 02-18-2023 Influenza vaccination Influenza Vacc ine (#1) [facility] Start: 02-18-2021 Influenza vaccination Flu vacc ine (Season Ended) [facility] Work Phone: Start: 11-20-2020 End: 11-20-2020 Patient encounter procedure 11/20/2020 Office Visit General Surgery Philip Brown IV, DO [address] [place], [place] [id number] [facility] Start: 11-06-2020 End: 11-06-2020 Admission to same day surgery center 11/06/2020 Surgery General Surgery Philip Brownson IV, DO [address] [place], [place] [id number] HERNIA UMBILICAL REPAIR LAPAROSCOPIC ROBOTIC WITH MESH [facility] [place] Comment on above: HERNIA UMBILICAL REP AIR LAPAROSCOPIC ROBOTIC WITH MESH Start: 11-06-2020 Subsequent hospital visit by physician 11/06/2020 Hospital Encounter General Surgery Philip Brown IV, DO [address] [facility] [address] [place] [address] [phone] [facility] [place] [facility] [place] Start: 11-04-2020 End: 11-04-2021 Basic metabolic 2000 panel - Serum or Plasma Basic Metabolic Panel Lab Routine Pre-op testing Expected: 11/04/2020, Expires: 11/04/2021 [employer] Phone: Comment on above: Expected: 11/04/2020 , Expires: 11/04/2021 Start: 11-04-2020 End: 11-04-2021 CBC W Auto Differential panel - Blood CBC Auto Differential Lab Routine Pre-op testing Expected: 11/04/2020, Expires: 11/04/2021 [employer] Phone: Comment on above: Expected: 11/04/2020 , Expires: 11/04/2021 Start: 2016 Screening for malign ant neoplasm of breast Breast cancer screen [employer] Phone: Start: 2016 Screening for malign ant neoplasm of colon Colon cancer screen colonoscopy [employer] Phone: Start: 2016 Shingles Vaccine (1 of 2) Shingles Vaccine (1 of 2) [employer] Phone: Start: 2006 Diabetes screen Diabetes screen [employer] Phone: Start: 2006 Lipid panel Lipid screen [employer] Phone: Start: 2006 Screening for malign ant neoplasm of breast Mammogram [facility] Start: 1996 Screening for malign ant neoplasm of cervix [facility] Start: 08-27-1987 Screening for malign ant neoplasm of cervix [facility] Start: 1985 DTaP/Tdap/Td vaccine (1 - Tdap) DTaP/Tdap/Td vaccine (1 - Tdap) [employer] Phone: Start: 1981 HIV screening HIV screen Samira Bo [facility] Work Phone: Start: 1978 COVID-19 Vaccine (1) COVID-19 Vaccin e (1) [employer] Phone: Start: 1966 Hepatitis C screening Hepatitis C sc reen [employer] Phone: Start: 1966 Screening for malign ant neoplasm of colon [facility] End: 11-06-2020 Blood glucose - POCT Blood glucose - POCT Point of Care Testing Routine One Time for 1 Occurrences starting 11/06/2020 until 11/06/2020 [employer] Phone: Comment on above: One Time for 1 Occur rences starting 11/06/2020 until 11/06/2020 End: 11-04-2021 EKG 12 lead EKG 12 lead ECG Routine Pre-op testing 1 Occurrences starting 11/04/2020 until 11/04/2021 [employer] Phone: Comment on above: 1 Occurrences starti ng 11/04/2020 until 11/04/2021 Oxygen therapy [[facility] Data Set] Initiate Oxygen Therapy Protocol Respiratory Care Routine Daily until discontinued starting 11/06/2020 [employer] Phone: Comment on above: Daily until disconti nued starting 11/06/2020 Phase I & II - meter ed glucose Phase I & II - metered glucose Point of Care Testing Routine As Needed until discontinued starting 11/06/2020 [employer] Phone: Comment on above: As Needed until disc ontinued starting 11/06/2020 End: 11-06-2020 , urine POCT , urine POCT Point of Care Testing Routine One Time for 1 Occurrences starting 11/06/2020 until 11/06/2020 [employer] Phone: Comment on above: One Time for 1 Occur rences starting 11/06/2020 until 11/06/2020 Surgical Pathology Surgical Path ology Lab Routine Release Upon Ordering for 1 Occurrences starting 11/06/2020 [employer] Phone: Comment on above: Release Upon Orderin g for 1 Occurrences starting 11/06/2020 Payers Date Payer Category Payer Self-pay [id number] 2022 Unknown [facility] [facility] [id number] 2022-Present [address] [address] [place] [address] [id number] 2020 Unknown [id number] 1966 Unknown [id number] 5 1966 Unknown [id number] 5 1966 Unknown [id number] 3 1966 Unknown [id number] 3 1966 Unknown [id number] 1959 Unknown [id number] Medicare [id number] Unknown [id number] 1 Social History Date Type Detail Facility Start: 10-30-2020 End: 11-06-2020 Tobacco smoking status NHIS Former smoker [employer] Phone: End: 06-20-2004 History of tobacco use Current smoker [employer] Start: 10-30-2020 End: 11-06-2020 Tobacco use and exposure Never used [employer] Start: 1965 Sex Assigned At Not on file [facility] Work Phone: Start: 11-06-2020 Alcohol intake Ex-drinker (finding) [employer] Work Phone: Exposure to SARS-CoV-2 (event) Not sure [employer] Tobacco smoking status NYIS Tobacco smoking consumption unknown [facility] Gender identity Not on file [facility] Start: 04-19-2020 Tobacco smoking status NHIS Never smoked tobacco (finding) [facility] Start: 1965 Sex Assigned At Female [facility] Telephone encounter Note 07-28-2023 Telephone Encounter - Leeroy Mckeon MD - 07/28/2023 1:17 PM EST Note Date & Type Note Facility 07-28-2023 Telephone encount er Note [facility]. Please add appointment. MAN [facility] Note 07-28-2023 Telephone Encounter - Leeroy Mckeon MD - 07/28/2023 1:17 PM EST Note Date & Type Note Facility 07-28-2023 Miscellaneous Notes Formattin g of this note might be different from the original. Patient has appointment 10[facility]09 at 1[facility]. Please add appointment. MAN documented in this encounter [facility] History of Present illness Narrative 11-04-2020 Luciano Beach RN - 11/04/2020 12:51 PM EDT Note Date & Type Note Facility 11-04-2020 History of Present illness Narrative Preoperative Instructions: Stop eating solid foods at midnight the night prior to your surgery. Stop drinking clear liquids at midnight the night prior to your surgery. 5-20-21 Arrive at the surgery center (3rd entrance) on ___3-20-24 by ___1130 . Please stop any blood [...] drive you home after your procedure. Your funeral limousine driver must be 18 years of age [...] day of surgery documented in this encounter [employer] Phone: Hospital Discharge instructions 09-18-2020 Instructions Note Date & Type Note Facility 09-18-2020 Hospital Discharg e Camila Nick RN - 11/06/2020 Patient Discharge Instructions Discharge [...] a strong odor. documented in this encounter [employer] Phone: Evaluation note Note Date & Type Note Facility Evaluation note Diagnosis Right groin pain Abdominal pain, right lower quadrant documented in this encounter [employer] Phone: Evaluation note Note Date & Type Note Facility Evaluation note Diagnosis Pre-op testing- Primary Preoperative examination, unspecified Acute post-operative pain documented in this encounter [employer] Phone: Evaluation note Note Date & Type Note Facility Evaluation note Diagnosis VIANCA (generalized anxiety disorder) ([facility])- Primary Generalized anxiety disorder documented in this encounter [facility] Evaluation note Note Date & Type Note Facility Evaluation note [facility] Phone: Reason for Referral Status Reason Specialty Diagnoses / Procedures Referre d By Contact Referred To Contact Closed Radiology Diagnoses Right groin pain Procedures CT ABDOMEN PELVIS W IV CONTRAST Additional Contrast? Oral [id number] Philip Brown IV, DO [address] [facility] [address] [place] [address] Status Reason Specialty Diagnoses / Procedures Referre d By Contact Referred To Contact Open Cardiology Diagnoses Pre-op testing Procedures EKG 12 lead Jaelyn Welch MD [address] [place] [address] Summary Purpose Family History No Family History Records Found Relationship Condition Age at Onset Recorded Date/T mars father Major depressive disorder Unknown Suicidal behavior Unknown mother Malignant neoplasm of breast Unknown Back problem Unknown Advance Directives No Advanced Directives Records Found Advance Directive Response Recorded Date/ Time Advance Directives No April 18, 2020 8:24pm Additional Source Comments Reason for Visit (unrecogniz ed section and content) Status Reason Specialty Diagnoses / Procedures Referre d By Contact Referred To Contact Closed Radiology Diagnoses Right groin pain Procedures CT ABDOMEN PELVIS W IV CONTRAST Additional Contrast? Oral [id number] Canos, Philip Jose IV, DO [address] [place] [address] Status Reason Specialty Diagnoses / Procedures Referre d By Contact Referred To Contact Diagnoses Umbilical hernia UMBILICAL HERNIA Procedures REPAIR UMBILICAL SILKE,5+Y/O,REDUC HERNIA UMBILICAL REPAIR LAPAROSCOPIC ROBOTIC WITH MESH Canos, Philip Jose IV, DO [address] [place] [address] [facility] Reason Comments Med Refill Ordered Prescriptions (unrec [...] mg, Intravenous, ONCE, 1 dose, On Zandra 5/20/21 at 1300, 30 min preop, Pre-op (day [...] Starting on Zandra 11/06/20 at 1354, For 5 doses, Phase [...] override 1424 (Given - Provid er: Therese Collado, GORDON) INFORMATION SOURCE (unrecogn ized section and content) DATE CREATED AUTHOR 11/11/2020 [facility] DATE CREATED AUTHOR AUTHOR'S ORGANIZ ATION 11/03/2022 [facility] DATE CREATED AUTHOR AUTHOR'S ORGANIZ ATION 11/01/2023 [facility] DATE CREATED AUTHOR AUTHOR'S ORGANIZ ATION 12/15/2023 [facility] Care Teams (unrecognized sec tion and content) 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 [employer] [facility]. provides no warranty or guarantee of the accuracy or completeness of information in this document.
[2024-01-30 23:38] VITALS: PULSE 58; TEMP 36.8; O2SAT 98; BMI 44.9
[2024-01-30 23:50] VITALS: BP 138/64
--- NOTE | 2024-01-30 23:54 | ED.BACK1 ---
HPI HPI - Back Pain/Injury General Chief Complaint: Back Pain/Injury Stated Complaint: BACK PAIN, RADIATING TO FRONT Time Seen by Provider: 01/30/24 22:16 Source: patient Mode of arrival: Wheelchair Limitations: no limitations History of Present Illness HPI Narrative: This 58-year-old female who is morbidly obese presents for evaluation of left low back pain radiating into her left inguinal area. The patient states 2 days ago she was getting up and down on the floor because her cat was dying and she was trying to lay next to it. She thinks she strained her back at that time. She is not having any urinary symptoms. She is not having any chest pain or shortness of breath. She does not have a history of kidney stones. She has taken Tylenol and aspirin for her pain. She does not have any associated nausea vomiting or diarrhea. She has not had a fever. Related Data Home Medications ?Medication ?Instructions ?Recorded ?Confirmed buspirone 7.5 mg tablet 7.5 mg PO BID 12/05/23 12/05/23 calcium 500 mg tablet 500 mg PO DAILY 12/05/23 12/05/23 diazepam 5 mg tablet 5 mg PO .at hs PRN insomnia 12/05/23 12/05/23 lorazepam 1 mg tablet 1 mg PO TID PRN anxiety 12/05/23 12/05/23 metoprolol succinate 100 mg 100 mg PO DAILY 12/05/23 12/13/23 tablet,extended release 24 hr (Toprol XL) multivitamin 1 tab PO DAILY 12/05/23 12/05/23 quetiapine 300 mg tablet 600 mg PO BEDTIME 12/05/23 12/05/23 sertraline 100 mg tablet (Zoloft) 200 mg PO Q24H 12/05/23 12/05/23 zinc 50 mg capsule 50 mg PO DAILY 12/05/23 12/05/23 Allergies Allergy/AdvReac Type Severity Reaction Status Date / Time Penicillins Allergy Unknown Unknown Verified 01/30/24 23:45 Opioid HPI Opioid Management Most Recent Opioid Data: No Data to Display Review of Systems ROS Status of ROS 10 or more systems reviewed and unremarkable except as noted in history and below [facility] Medical History (Updated 01/31/24 @ 01:11 by Samantha Perez MD) Hx of induced ?Z98.890 - Other specified postprocedural states (ICD-10) Schizophrenia ?F20.9 - Schizophrenia, unspecified (ICD-10) Depression ?F32.A - Depression, unspecified (ICD-10) Anxiety ?F41.9 - Anxiety disorder, unspecified (ICD-10) Surgical History (Updated 12/05/23 @ 07:50 by Zaria Eldridge, RN) H/O section ?Z98.891 - History of uterine scar from previous surgery (ICD-10) H/O gastric bypass ?Z98.84 - Bariatric surgery status (ICD-10) Family History (Updated 12/05/23 @ 14:09 by Zaria Eldridge, RN) Other Family history of COPD (chronic obstructive pulmonary disease) Family history of cancer Social History (Updated 12/05/23 @ 14:08 by Zaria Eldridge, RN) Within the past year, how often did you have a drink containing alcohol: never Score interpretation: A score less than 3 is consistent with normal alcohol consumption. 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 Highest level of school completed/degree received: Associate degree: occupational, technical, vocational program Exam Narrative Exam Narrative: Vital signs and Nursing Notes reviewed: Patient is afebrile with a normal pulse, normal blood pressure, she is not hypoxic with pulse ox of 98% on room air General: Awake, alert, oriented, no acute distress, lying comfortably on the stretcher, moves easily about the stretcher, no respiratory distress HEENT: Normocephalic atraumatic, mucous membranes are moist and pink, eyes are clear, normal conjunctiva, vision is grossly intacty Chest: Lungs are clear to auscultation with good air entry, there is no wheezing rhonchi or rales appreciated no accessory muscle use, patient is speaking in complete sentences-no chest wall tenderness to palpation CVS: Regular rate and rhythm S1-S2, no murmurs rubs or gallops, pulses are brisk and equal bilaterally ABD: Obese, soft, nondistended, no reproducible tenderness in the left lower quadrant or left inguinal area, patient easily flexes at the hip without discomfort. Femoral pulses are brisk and equal bilaterally Musculoskeletal: Mild tenderness in the left lateral flank region with no bony vertebral tenderness or step-off. Extremities: Moving all extremities, no lower extremity tenderness or swelling noted, negative Homans' sign, pulses are brisk and equal bilaterally Skin: Normal in appearance without rash,pallor, petechiae or purpura Neuro: No focal deficits Constitutional Vital Signs, click to edit/add: Last Vital Signs Temp 98.2 F 01/30/24 23:38 Pulse 58 L 01/30/24 23:38 Resp 18 01/30/24 23:38 BP 138/64 01/30/24 23:50 Pulse Ox 98 01/30/24 23:38 O2 Del Method Room Air 01/30/24 23:38 Course Vital Signs Vital signs: Vital Signs Temperature 98.2 F 01/30/24 23:38 Pulse Rate 58 L 01/30/24 23:38 Respiratory Rate 18 01/30/24 23:38 Pulse Oximetry 98 01/30/24 23:38 Oxygen Delivery Method Room Air 01/30/24 23:38 Temperature 98.2 F 01/30/24 23:38 Pulse Rate 58 L 01/30/24 23:38 Respiratory Rate 18 01/30/24 23:38 Blood Pressure 138/64 01/30/24 23:50 Pulse Oximetry 98 01/30/24 23:38 Oxygen Delivery Method Room Air 01/30/24 23:38 MDM - Back Pain/Injury MDM Narrative Medical decision making narrative: This 58-year-old female presents for evaluation of left low back pain that radiates into her left inguinal area after getting up and down on the floor several days ago because her cat was sick and dying. She feels like she strained her low back. She does have some mild tenderness in the lower left lumbar region without any midline bony vertebral tenderness or step-off. She denies any fevers or chills. She denies any nausea or vomiting. She does not have a history of kidney stones. Her vital signs were stable. She was medicated with IM Toradol. I also ordered IM Norflex but it is unavailable. Urinalysis was ordered and is positive for leukocyte esterase and 20-50 white blood cells per high-power field. This is likely the etiology of her discomfort. The results of this were discussed with her and she was just explaining to her friend that she was wondering if she had a UTI because she is having some discomfort when she urinates. She will be medicated in emergency department with a dose of Keflex and discharged home with Keflex and ibuprofen pending culture results. Lab Data Labs: Lab Results 01/31/24 Range/Units 00:30 Urine Color Dk yellow (YELLOW) Urine Clarity Clear (CLEAR) Urine pH 6.0 (5.0-9.0) Ur Specific [place] >=1.030 A (1.005-1.025) Urine Protein Trace (NEG/TRACE) mg/dL Urine Glucose (UA) Negative (NEGATIVE) mg/dL Urine Ketones Negative (NEGATIVE) mg/dL Urine Occult Blood Negative (NEGATIVE) Urine Nitrite Negative (NEGATIVE) Urine Bilirubin Negative (NEGATIVE) Urine Urobilinogen 1.0 (0.2-1.0) EU/dL Ur Leukocyte Esterase Small A (NEGATIVE) Urine RBC 0-2 (0-2) #/HPF Urine WBC 20-50 A (NONE SEEN) #/HPF Ur Squamous Epith Cells Moderate A (NONE/RARE) #/LPF Urine Crystals None seen (None Seen) #/HPF Urine Bacteria Trace A (NONE SEEN) #/HPF Urine Casts None seen (NONE SEEN) #/LPF Urine Mucus Trace A (NONE SEEN) Discharge Plan Discharge Stand Alone Forms: Portal Instructions Chief Complaint: Back Pain/Injury Clinical Impression: UTI (urinary tract infection) Patient Disposition: Home, Self-Care Time of Disposition Decision: 01:11 Condition: Good Prescriptions / Home Meds: No Action buspirone 7.5 mg tablet 7.5 mg PO BID diazepam 5 mg tablet 5 mg PO .at hs PRN (Reason: insomnia) lorazepam 1 mg tablet 1 mg PO TID PRN (Reason: anxiety) metoprolol succinate [Toprol XL] 100 mg tablet extended release 24 hr 100 mg PO DAILY quetiapine 300 mg tablet 600 mg PO BEDTIME sertraline [Zoloft] 100 mg tablet 200 mg PO Q24H multivitamin Tablet 1 tab PO DAILY calcium 500 mg tablet 500 mg PO DAILY zinc 50 mg capsule 50 mg PO DAILY Print Language: [place] Instructions: Urinary Tract Infection in Women (ED) Referrals: Leeroy Villafuerte MD [Primary Care Provider] - 1 week
[2024-01-31] MEDS: KETOROLAC TROMETHAMINE 60 MG/2 ML VIAL IM (00:26)
[2024-01-31 00:35] LABS: Bilirubin Urine NEGATIVE (NEGATIVE); Blood Urine NEGATIVE (NEGATIVE); Clarity Urine CLEAR (CLEAR); Glucose Urine UA NEGATIVE (NEGATIVE); Ketones Urine NEGATIVE (NEGATIVE); Leukocyte Esterase Urine SMALL (NEGATIVE); Nitrite Urine NEGATIVE (NEGATIVE); Protein Urine TRACE mg/dL (NEG/TRACE); Specific Gravity Urine >=1.030 (1.005-1.025)
[2024-01-31 00:38] LABS: Color Urine DK YELLOW (YELLOW)
--- NOTE | 2024-01-31 00:43 | PC.NURSE ---
Patient started having back pain last night when she was getting up and down off of the floor because she was laying with her cat that was dying. Today she started having left lower abdominal pain She denies any urinary symptoms or hx of kidney stones
[2024-01-31 01:06] LABS: Bacteria Urine TRACE #/HPF (NONE SEEN); Cast Seen? NONE SEEN #/LPF (NONE SEEN); Crystals Seen? None Seen #/HPF (None Seen); Mucus Urine TRACE (NONE SEEN); RBC Urine 0-2 #/HPF (0-2); Squamous Epithelial Cell Urine MODERATE #/LPF (NONE/RARE); WBC Urine 20-50 #/HPF (NONE SEEN)
[2024-01-31] MEDS: CEPHALEXIN 500 MG CAPSULE PO (01:18)
== END 2024-01-31 01:30 | disposition home or self-care (01) ==
PROVIDERS: Emergency Provider Emergency Medicine; PCP Family Medicine
DX: N39.0 Urinary tract infection, site not specified (principal); E66.01 Morbid (severe) obesity due to excess calories; Z68.41 Body mass index [BMI] 40.0-44.9, adult; F17.200 Nicotine dependence, unspecified, uncomplicated
CPT/HCPCS: 81001; 96372; 99284; J1885

== ENCOUNTER 2024-02-04 17:50 | Emergency (ER) | payer OTHER, SELFPAY ==
[2024-02-04 18:05] VITALS: BP 160/98; PULSE 73; TEMP 36.9; O2SAT 98; BMI 62.4
--- OUTSIDE RECORDS SUMMARY | 2024-02-04 18:22 | XMS_ITS | CCD ---
Author Organization [facility] Care Team Providers Care Orthopedic Tech Name Role Phone Mike DIXON, Leeroy Mulligan [...] 1 capsule by mouth three times daily Millis-3 Fatty Acids (FISH OIL) 1000 MG CAPS [...] Test Name Value Interpretation Reference Range Facility [facility] 12-13-2023 L Specimen: [id number] Received: 12/14/23 Status: RILEY Charles Num: [id number] Spec Type: Surgical Subm Dr: Meron Vergara DO Tissues: A Colon Biopsy (DESC POLYP 40 CM) B Colon Biopsy (DESC POLYP 20 CM) Procedures: HE/4, Gross/Micro L4/2 Age/ Patient Sex Location Account Attending Physician Becky Hardwick 58/F [place]ELL [id number] Meron Vergara DO SPEC NUM: [id number] RECD: 12/14/23 STATUS: RILEY CHARLES NUM: [id number] TYLER: 12/13/[address]: Meron Vergara DO ENTERED: 12/14/[address] [facility] [address]: Barbie Maldonado SPEC TYPE: Surgical [...] tissue fragment, entirely submitted in B1. Specimen: [id number] Received: 12/14/23 Status: RILEY Charles Num: [id number] Spec Type: Surgical Subm Dr: Meron Vergara DO Tissues: A Colon Biopsy (DESC POLYP 40 CM) B Colon Biopsy (DESC POLYP 20 CM) Procedures: Lena SEGUNDO/Sarahy L4/2 Patient: Becky Hardwick [id number] (Continued) Specimen: [id number] Received: 12/14/23 (Continued) Signed (signature on file) Candace Prasad MD 12/15/23 1558 Specimen: [id number] Received: 12/14/23 Status: RILEY Charles Num: [id number] Spec Type: Surgical Subm Dr: Meron Vergara DO Tissues: A Colon Biopsy (DESC POLYP 40 CM) B Colon Biopsy (DESC POLYP 20 CM) Procedures: Lena SEGUNDO/Sarahy L4/2 Patient: Becky Hardwick [id number] (Continued) Specimen: [id number] Received: 12/14/23 (Continued) CPT Codes 90676s1 Specimen: [id number] Received: 12/14/23 Status: RILEY Charles Num: [id number] Spec Type: Surgical Subm Dr: Meron Vergara DO Tissues: A Colon Biopsy (DESC POLYP 40 CM) B Colon Biopsy (DESC POLYP 20 CM) Procedures: HE/Caitlyn, Gross/Micro L4/2 Patient: Becky Hardwick [id number] (Continued) Signed (signature on file) Candace Prasad MD 12/15/23 1558 Normal [facility] MG MAMM SCREEN 3D GABRIEL CADon 10-07-2022 MG MAMM SCREEN 3D GABRIEL CAD Patient: BECKY HARDWICK. Exam Date: 10/07/2022 : 1965 Gender:F Ordering : DR LEEROY MCKEON . Admission #: [id number] Family : Order #: [id number] CLICK HERE TO VIEW EXAM RADIOLOGY REPORT [...] breast cancer at age 59. LOCATION: [facility] BREAST COMPOSITION: Scattered areas fibroglandular density. FINDINGS: [...] M.D. on 10/07/2022 at 14:39 Normal [facility] CBC AUTO DIFFon 07-28-2022 BASO # 0.0 103/ul Normal 0.0-0.1 [facility] Comment on above: Performed By: #### C BC #### [facility] [address] [address] [address] Mary Bolanos Basophils/100 WBC (Bld) 1.0 % Normal 0.2-2.0 [facility] Comment on above: Performed By: #### C BC #### [facility] [address] [address] [address] Mary Bolanos EO # 0.1 103/ul Normal 0.0-0.7 [facility] Comment on above: Performed By: #### C BC #### [facility] [address] [address] [address] Mary Bolanos Eosinophils/100 WBC (Bld) 2.8 % Normal 0.9-7.0 [facility] Comment on above: Performed By: #### C BC #### [facility] [address] [address] [address] Mary Bolanos Erythrocyte distribution width (RBC) [Ratio] 14.5 % Normal 11.0-15.0 [facility] Comment on above: Performed By: #### C BC #### [facility] [address] [place] [address] Dr. Mary Bolanos Hematocrit (Bld) [Volume fraction] 40.4 % Normal 36.0-48.0 [facility] Comment on above: Performed By: #### C BC #### [facility] [address] [place] [address] Dr. Mary Bolanos Hemoglobin (Bld) [Mass/Vol] 12.3 g/dL Normal 12.0-16.0 [facility] Comment on above: Performed By: #### C BC #### [facility] [address] [place] [address] Dr. Mary Bolanos IG # 0.01 10e3/ul Normal 0.00-0.03 [facility] Comment on above: Performed By: #### C BC #### [facility] [address] [place] [address] Dr. Mary Bolanos IG % 0.3 % Normal 0.0-0.5 [facility] Comment on above: Performed By: #### C BC #### [facility] [address] [place] [address] Dr. Mary Bolanos LYMPH # 1.9 103/ul Normal 1.2-3.8 [facility] Comment on above: Performed By: #### C BC #### [facility] [address] [place] [address] Dr. Mary Bolanos Lymphocytes/100 WBC (Bld) 48.0 % Normal 20.5-60.0 [facility] Comment on above: Performed By: #### C BC #### [facility] [address] [place] [address] Dr. Mary Bolanos MANUAL DIFF REQ NO Normal [facility] Comment on above: Performed By: #### C BC #### [facility] [address] [place] [address] Dr. Mary Bolanos MCH (RBC) [Entitic mass] 28.2 pg Normal 26.7-34.0 [facility] Comment on above: Performed By: #### C BC #### [facility] [address] [address] [address] Mary Bolanos MCHC (RBC) [Mass/Vol] 30.4 g/dL Normal 29.9-35.2 [facility] Comment on above: Performed By: #### C BC #### [facility] [address] [address] [address] Mary Bolanos MCV (RBC) [Entitic vol] 92.7 fL Normal 81.0-99.0 [facility] Comment on above: Performed By: #### C BC #### [facility] [address] [address] [address] Mary Bolanos MONO # 0.3 103/ul Normal 0.3-0.8 [facility] Comment on above: Performed By: #### C BC #### [facility] [address] [place] [address] Dr. Mary Bolanos Monocytes/100 WBC (Bld) 7.8 % Normal 1.7-12.0 [facility] Comment on above: Performed By: #### C BC #### [facility] [address] [place] [address] Dr. Mary Bolanos NEUT # 1.6 103/ul Normal 1.4-6.5 [facility] Comment on above: Performed By: #### C BC #### [facility] [address] [place], [place] [id number] Dr. Mary Bolanos Neutrophils/100 WBC (Bld) 40.1 % Critically low 43.0-75.0 [facility] Comment on above: Performed By: #### C BC #### [facility] [address] [place], [place] [id number] Dr. Mary Bolanos Platelet mean volume (Bld) [Entitic vol] 9.0 fL Critically low 9.5-13.5 [facility] Comment on above: Performed By: #### C BC #### [facility] [address] [place] [address] Dr. Mary Bolanos PLT 291 103/ul Normal 150-450 [facility] Comment on above: Performed By: #### C BC #### [facility] [address] [address] [address] Mary Bolanos RBC 4.36 106/ul Normal 4.20-5.40 [facility] Comment on above: Performed By: #### C BC #### [facility] [address] [place] [address] Dr. Mary Bolanos WBC 4.0 103/ul Normal 4.0-11.0 [facility] Comment on above: Performed By: #### C BC #### [facility] [address] [place] [address] Dr. Mary Bolanos GLYCOHEMOGLOBIN A1Con 2022 ADA RECOMMENDATION SEE BELOW Normal [facility] Comment on above: Result Comment: ADA RECOMMENDED LIMIT 4.0 - 6.0 ADA THERAPEUTIC TARGET < 7.0 ACTION SUGGESTED > 7.0 Performed By: #### A 1C #### [facility] [address] [place] [address] Dr. Mary Bolanos Glucose [Mass/Vol] 103 mg/dL Normal [facility] Comment on above: Performed By: #### A 1C #### [facility] [address] [place] [address] Dr. Mary Bolanos HbA1c (Bld) [Mass fraction] 5.2 % Normal 4.5-6.2 [facility] Comment on above: Performed By: #### A 1C #### [facility] [address] [place] [address] Dr. Mary Bolanos LIPID PROFILEon 07-28-2022 CHOL-HDL RATIO NORM SEE BELOW Normal [facility] Comment on above: Result Comment: 3.3 - 4.4 LOW RISK 4.4 - 7.1 AVERAGE RISK 7.1 - 11.0 MODERATE RISK >11.0 HIGH RISK Performed By: #### T SH, LIPID, BMP, LIVER #### [facility] [address] [place] [address] Dr. Mary Bolanos Cholesterol [Mass/Vol] 214 mg/dL Critically high <=200 [facility] Comment on above: Performed By: #### T SH, LIPID, BMP, LIVER #### [facility] [address] [place] [address] Dr. Mary Bolanos Cholesterol in HDL [Mass/Vol] 64 mg/dL Critically high 40-60 [facility] Comment on above: Performed By: #### T SH, LIPID, BMP, LIVER #### [facility] [address] [address] [address] Mary Bolanos Cholesterol in LDL [Mass/Vol] 132.2 mg/dL Normal [facility] Comment on above: Performed By: #### T SH, LIPID, BMP, LIVER #### [facility] [address] [address] [address] Mary Bolanos Cholesterol.total/Cho lesterol in HDL [Mass ratio] 3.3 {ratio} Normal [facility] Comment on above: Performed By: #### T SH, LIPID, BMP, LIVER #### [facility] [address] [place] [address] Dr. Mary Bolanos HDL NORMAL > or = 60 mg/dl - LOW CARDIOVASCULAR RISK <40 mg/dl - HIGH CARDIOVASCULAR RISK Normal [facility] Comment on above: Performed By: #### T SH, LIPID, BMP, LIVER #### [facility] [address] [place] [address] Dr. Mary Bolanos LDL CALC NORMAL SEE BELOW Normal [facility] Comment on above: Result Comment: <100 mg/dl OPTIMAL 100 - 129 mg/dl NEAR OR ABOVE OPTIMAL 130 - 159 mg/dl BORDERLINE HIGH 160 - 189 mg/dl HIGH >190 mg/dl VERY HIGH Performed By: #### T SH, LIPID, BMP, LIVER #### [facility] [address] [place] [address] Dr. Mary Bolanos Triglyceride [Mass/Vol] 89 mg/dL Normal <=150 [facility] Comment on above: Performed By: #### T SH, LIPID, BMP, LIVER #### [facility] [address] [place] [address] Dr. Mary Bolanos VLDL CALC 17.8 mg/dL Normal [facility] Comment on above: Performed By: #### T SH, LIPID, BMP, LIVER #### [facility] [address] [address] [address] Mary Bolanos LIVER PROFILEon 07-28-2022 Albumin [Mass/Vol] 3.4 g/dL Normal 3.4-5.0 [facility] Comment on above: Performed By: #### T SH, LIPID, BMP, LIVER #### [facility] [address] [place] [address] Dr. Mary Bolanos Albumin/Globulin [Mass ratio] 0.8 {ratio} Normal [facility] Comment on above: Performed By: #### T SH, LIPID, BMP, LIVER #### [facility] [address] [place] [address] Dr. Mary Bolanos ALP [Catalytic activity/Vol] 96 U/L Normal 46-116 [facility] Comment on above: Performed By: #### T SH, LIPID, BMP, LIVER #### [facility] [address] [place] [address] Dr. Mary Bolanos ALT [Catalytic activity/Vol] 32 U/L Normal 14-59 [facility] Comment on above: Performed By: #### T SH, LIPID, BMP, LIVER #### [facility] [address] [place] [address] Dr. Mary Bolanos AST [Catalytic activity/Vol] 25 U/L Normal 15-37 [facility] Comment on above: Performed By: #### T SH, LIPID, BMP, LIVER #### [facility] [address] [place] [address] Dr. Mary Bolanos BILI, CONJUGATED 0.1 mg/dL Normal 0.0-0.2 [facility] Comment on above: Performed By: #### T SH, LIPID, BMP, LIVER #### [facility] [address] [place] [address] Dr. Mary Bolanos Bilirubin [Mass/Vol] 0.3 mg/dL Normal 0.2-1.0 [facility] Comment on above: Performed By: #### T SH, LIPID, BMP, LIVER #### [facility] [address] [place] [address] Dr. Mary Bolanos Globulin (S) [Mass/Vol] 4.1 g/dL Normal [facility] Comment on above: Performed By: #### T SH, LIPID, BMP, LIVER #### [facility] [address] [place] [address] Dr. Mary Bolanos Protein [Mass/Vol] 7.5 g/dL Normal 6.4-8.[address] [facility] Comment on above: Performed By: #### T SH, LIPID, BMP, LIVER #### [facility] [address] [place] [address] Dr. Mary Bolanos PROF CHEM 8 (BAS METB)on Anion gap [Moles/Vol] 8.5 mmol/L Normal [facility] Comment on above: Performed By: #### T SH, LIPID, BMP, LIVER #### [facility] [address] [place] [address] Dr. Mary Bolanos Calcium [Mass/Vol] 8.8 mg/dL Normal 8.5-10.[address] [facility] Comment on above: Performed By: #### T SH, LIPID, BMP, LIVER #### [facility] [address] [place] [address] Dr. Mary Bolanos Chloride [Moles/Vol] 106 mmol/L Normal 98-107 [facility] Comment on above: Performed By: #### T SH, LIPID, BMP, LIVER #### [facility] [address] [place] [address] Dr. Mary Bolanos CO2 [Moles/Vol] 31.3 mmol/L Normal 21.0-32.0 [facility] Comment on above: Performed By: #### T SH, LIPID, BMP, LIVER #### [facility] [address] [place] [address] Dr. Mary Bolanos Creatinine [Mass/Vol] 1.13 mg/dL Critically high 0.55-1.02 [facility] Comment on above: Performed By: #### T SH, LIPID, BMP, LIVER #### [facility] [address] [place] [address] Dr. Mary Bolanos EGFR-AF WALLISIAN >60 Normal >=60 [facility] Comment on above: Performed By: #### T SH, LIPID, BMP, LIVER #### [facility] [address] [place] [address] Dr. Mary Bolanos EGFR-NON AF WALLISIAN 50 mL/min/1.73m2 Critically low >=60 [facility] Comment on above: Performed By: #### T SH, LIPID, BMP, LIVER #### [facility] [address] [address] [address] Mary Bolanos Glucose [Mass/Vol] 96 mg/dL Normal 74-[address] [facility] Comment on above: Performed By: #### T SH, LIPID, BMP, LIVER #### [facility] [address] [place] [address] Dr. Mary Bolanos Potassium [Moles/Vol] 4.8 mmol/L Normal 3.5-5.1 [facility] Comment on above: Performed By: #### T SH, LIPID, BMP, LIVER #### [facility] [address] [place] [address] Dr. Mary Bolanos Sodium [Moles/Vol] 141 mmol/L Normal 136-[address] [facility] Comment on above: Performed By: #### T SH, LIPID, BMP, LIVER #### [facility] [address] [address] [address] Mary Bolanos Urea nitrogen [Mass/Vol] 14.0 mg/dL Normal 7.0-18.0 [facility] Comment on above: Performed By: #### T SH, LIPID, BMP, LIVER #### [facility] [address] [place] [address] Dr. Mary Bolanos Urea nitrogen/Creatinine [Mass ratio] 12.4 mg/mg Normal [facility] Comment on above: Performed By: #### T SH, LIPID, BMP, LIVER #### [facility] [address] [place] [address] Dr. Mary Bolanos TSHon 07-28-2022 TSH 2.034 uIU/mL Normal 0.358-3.740 [facility] Comment on above: Performed By: #### T SH, LIPID, BMP, LIVER #### [facility] [address] [place] [address] Dr. Mary Bolanos COVID-19, RapidOrdered By: Madison Brown on 11-06-2020 SARS-CoV-2 (COVID-19) RNA NEIL+probe Ql (Unsp spec) Not detected Not Detected [employer] Phone: Comment on above: Rapid NAAT: The [...] management decisions. Fact sheet for Healthcare Providers: https://www.fda.gov/media/808135/download Fact sheet for Patients: https://www.fda.gov/media/481019/download Methodology: Isothermal Nucleic Acid Amplification Specimen Description .NASOPHARYNGEAL SWAB [employer] Phone: [employer] Phone: [id number] 11-06-2020 SARS-CoV-2 (COVID-19) RNA NEIL+probe Ql (Unsp spec) Not detected Normal NOTDET [facility] Comment on above: Result Comment: Rapid NAAT: [...] management decisions. Fact sheet for Healthcare Providers: https://www.fda.gov/media/398893/download Fact sheet for Patients: https://www.fda.gov/media/810126/download Methodology: Isothermal Nucleic Acid Amplification Performed By: #### C OVRB #### [facility] [id number] [place] [id number] [employer]: Siddharth Nunes MD Surgical Pathologyon Surgical Pathology [...] SURGICAL PATHOLOGY CONSULTATION Patient Name: BECKY HARDWICK [facility] Rec: [id number] Path Number: [id number] [facility] Strategic Funding Source [facility] [facility] ANATOMIC PATHOLOGY [address] [place] [id number] [facility] Comment on above: Performed By: #### P PPVS #### [facility] [employer] [address] [place] [address] [id number] [employer]: Primo King MD CT ABDOMEN PELVIS W [...] Kalia Fong MD 10/28/20 Final result Normal [facility] CT ABDOMEN PELVIS W IV CONTR AST Additional Contrast? OralOrdered By: Philip Brown on 10-28-2020 No acute disease. No radiodense urolithiasis or right inguinal hernia. Increased stool. [facility] [employer] Work Phone: EXAMINATION: CT OF THE ABDOMEN [...] is no pathologic adenopathy. Bones/Soft Tissues: Normal [employer] Phone: Jose, Mhpn Incoming Radiant Results From [employer] - 10/28/2020 9:25 PM EDT EXAMINATION: CT [...] urolithiasis or right inguinal hernia. Increased stool. [employer] Phone: Creatinine w/GFRon 1 (cont.) Normal [facility] Comment on above: Result Comment: Aver age GFR for 50-59 years old: 93 mL/min/1.73sq m Chronic Kidney Disease: <60 mL/min/1.73sq m Kidney failure: <15 mL/min/1.73sq m eGFR calculated using average adult body mass. Additional eGFR calculator available at: http://www.MediaLifTV.com/multiple_crcl_2012.htm Performed By: #### C REG #### [place] [address] [employer]: Siddharth Nunes MD Creatinine [Mass/Vol] 0.82 mg/dL Normal 0.50-0.90 [facility] Comment on above: Performed By: #### C REG #### [place] [address] [employer]: Siddharth Nunes MD GFR, Amer >60 Normal >60 [facility] Comment on above: Performed By: #### C REG #### [place] [address] [employer]: Siddharth Nunes MD GFR,non Amer >60 Normal >60 [facility] Comment on above: Performed By: #### C REG #### [place] [address] [employer]acker: Siddharth Nunes MD Staging: NOT REPORTED Normal [facility] Comment on above: Performed By: #### C REG #### [place] [address] [employer]acker: Siddharth Nunes MD Creatinine, SerumOrdered By: Philip Brown on 10-28-2020 Creatinine [Mass/Vol] 0.82 mg/dL 0.50 - 0.90 mg/dL [employer] Phone: GFR >60 >60 mL/min [employer] Phone: GFR Non- >60 >60 mL/min [employer] Work Phone: GFR/1.73 sq M.predicted MDRD (S/P/Bld) [Vol rate/Area] [employer] Phone: Comment on above: Average GFR for 50-5 9 years old: 93 mL/min/1.73sq m Chronic Kidney Disease: <60 mL/min/1.73sq m Kidney failure: <15 mL/min/1.73sq m eGFR calculated using average adult body mass. Additional eGFR calculator available at: http://www.Handle/multiple_crcl_2012.htm GFR/1.73 sq M.predicted MDRD (S/P/Bld) [Vol rate/Area] NOT REPORTED [employer] Phone: Vital Signs Date Time Vital Sign Value Performing Clinician Faci lity 11-06-2020 17:15-0400 Diastolic blood pressure 76 mm[Hg] Philip Canos IV, DO Work Phone: [employer] Phone: 11-06-2020 17:15-0400 Heart rate 48 /min Philip Canos IV, DO Work Phone: [employer] Phone: 11-06-2020 17:15-0400 Respiratory rate 20 /min Philip Canos IV, DO Work Phone: [employer] Phone: 11-06-2020 17:15-0400 SaO2% (BldA) [Mass fraction] 100 % Philip Canos IV, DO Work Phone: [employer] Phone: 11-06-2020 17:15-0400 Systolic blood pressure 154 mm[Hg] Philip Canos IV, DO Work Phone: [employer] Phone: 11-06-2020 16:30-0400 Body temperature 97.2 [degF] Philip Canos IV, DO Work Phone: [employer] Phone: 11-06-2020 12:49-0400 Body height 162.6 cm Philip Canos IV, DO Work Phone: [employer] Work Phone: 11-06-2020 12:49-0400 Body mass index (BMI) [Ratio] 42.53 kg/m2 Philip Canos IV, DO Work Phone: [employer] Work Phone: 11-06-2020 12:49-0400 Body weight 112.4 kg Philip Canos IV, DO Work Phone: [employer] Work Phone: Encounters Encounter Date Encounter Type Care Provider Facility Start: 12-13-2023 End: 12-13-2023 ambulatory Meron Vergara [facility] Work Phone: Start: 12-13-2023 End: 12-13-2023 Departed Referred DO Meronhany Vergara Work Phone: [facility] Path Spec [facility] Start: 10-31-2023 End: 10-31-2023 ambulatory MERON VERGARA Not Available Start: 07-26-2023 Refill Leeroy Bentley Work Phone: [facility] Comment on above: VIANCA (generalized anx iety disorder) (CMS/[facility]) (Primary Dx) Start: 10-07-2022 End: 10-08-[address] LEEROY MCKEON Facility:[facility] Start: 07-30-2022 Encounter for genera l adult medical examination without abnormal findings DR LEEROY MCKEON [facility] Start: 07-28-2022 End: 07-29-[address] LEEROY MCKEON Facility:[facility] Start: 07-28-2022 End: 07-29-2022 Encounter for general adult medical examination without abnormal findings DR LEEROY MCKEON Facility:[facility] Start: 11-06-2020 End: 11-06-2020 ambulatory PHILIP GARCIA CANOS IV [facility] Start: 11-06-2020 End: 11-06-2020 Patient encounter status Philip Vuongos DO Work Phone: [facility] [place] Start: 11-06-2020 End: 11-06-2020 Subsequent hospital visit by physician Philip Jose Brown DO Work Phone: [facility] [place] Comment on above: Pre-op testing (Prim juliet Dx); Acute post-operative pain Start: 10-28-2020 End: 10-31-2020 ambulatory PHILIP VUONGOS IV [facility] Start: 10-28-2020 End: 10-30-2020 [facility] CT Scan Comment on above: Right [...] 02-18-2023 Influenza vaccination Influenza Vacc ine (#1) [facility] Start: 02-18-2021 Influenza vaccination Flu vacc ine (Season Ended) [facility] Work Phone: Start: 11-20-2020 End: 11-20-2020 Patient encounter procedure 11/20/2020 Office Visit General Surgery Philip Brown IV, DO [address] [place], [place] [id number] [facility] Start: 11-06-2020 End: 11-06-2020 Admission to same day surgery center 11/06/2020 Surgery General Surgery Philip Brownson IV, DO [address] [place], [place] [id number] HERNIA UMBILICAL REPAIR LAPAROSCOPIC ROBOTIC WITH MESH [facility] [place] Comment on above: HERNIA UMBILICAL REP AIR LAPAROSCOPIC ROBOTIC WITH MESH Start: 11-06-2020 Subsequent hospital visit by physician 11/06/2020 Hospital Encounter General Surgery Philip Brown IV, DO [address] [facility] [address] [place] [address] [phone] [facility] [place] Start: 11-04-2020 End: 11-04-2021 Basic metabolic 2000 panel - Serum or Plasma Basic Metabolic Panel Lab Routine Pre-op testing Expected: 11/04/2020, Expires: 11/04/2021 [employer] Phone: Comment on above: Expected: 11/04/2020 , Expires: 11/04/2021 Start: 11-04-2020 End: 11-04-2021 CBC W Auto Differential panel - Blood CBC Auto Differential Lab Routine Pre-op testing Expected: 11/04/2020, Expires: 11/04/2021 [employer] Phone: Comment on above: Expected: 11/04/2020 , Expires: 11/04/2021 Start: 2016 Screening for malign ant neoplasm of breast Breast cancer screen [employer] Phone: Start: 2016 Screening for malign ant neoplasm of colon Colon cancer screen colonoscopy [employer] Phone: Start: 2016 Shingles Vaccine (1 of 2) Shingles Vaccine (1 of 2) [employer] Phone: Start: 2006 Diabetes screen Diabetes screen [employer] Phone: Start: 2006 Lipid panel Lipid screen [employer] Phone: Start: 2006 Screening for malign ant neoplasm of breast Mammogram [facility] Start: 1996 Screening for malign ant neoplasm of cervix [facility] Start: 08-27-1987 Screening for malign ant neoplasm of cervix [facility] Start: 1985 DTaP/Tdap/Td vaccine (1 - Tdap) DTaP/Tdap/Td vaccine (1 - Tdap) [employer] Phone: Start: 1981 HIV screening HIV screen [facility] Work Phone: Start: 1978 COVID-19 Vaccine (1) COVID-19 Vaccin e (1) [employer] Phone: Start: 1966 Hepatitis C screening Hepatitis C sc reen [employer] Phone: Start: 1966 Screening for malign ant neoplasm of colon [facility] End: 11-06-2020 Blood glucose - POCT Blood glucose - POCT Point of Care Testing Routine One Time for 1 Occurrences starting 11/06/2020 until 11/06/2020 [employer] Phone: Comment on above: One Time for 1 Occur rences starting 11/06/2020 until 11/06/2020 End: 11-04-2021 EKG 12 lead EKG 12 lead ECG Routine Pre-op testing 1 Occurrences starting 11/04/2020 until 11/04/2021 [employer] Phone: Comment on above: 1 Occurrences starti ng 11/04/2020 until 11/04/2021 Oxygen therapy [[facility] Data Set] Initiate Oxygen Therapy Protocol Respiratory Care Routine Daily until discontinued starting 11/06/2020 [employer] Phone: Comment on above: Daily until disconti nued starting 11/06/2020 Phase I & II - meter ed glucose Phase I & II - metered glucose Point of Care Testing Routine As Needed until discontinued starting 11/06/2020 [employer] Phone: Comment on above: As Needed until disc ontinued starting 11/06/2020 End: 11-06-2020 , urine POCT , urine POCT Point of Care Testing Routine One Time for 1 Occurrences starting 11/06/2020 until 11/06/2020 [employer] Phone: Comment on above: One Time for 1 Occur rences starting 11/06/2020 until 11/06/2020 Surgical Pathology Surgical Path ology Lab Routine Release Upon Ordering for 1 Occurrences starting 11/06/2020 [employer] Phone: Comment on above: Release Upon Orderin g for 1 Occurrences starting 11/06/2020 Payers Date Payer Category Payer Self-pay [id number] 2022 Unknown [employer] [id number] 2022-Present [address] [address] [place] [address] [id number] 2020 Unknown [id number] 1966 Unknown [id number] 5 1966 Unknown [id number] 5 1966 Unknown [id number] 3 1966 Unknown [id number] 3 1966 Unknown [id number] 1959 Unknown [id number] Medicare [id number] Unknown [id number] 1 Social History Date Type Detail Facility Start: 10-30-2020 End: 11-06-2020 Tobacco smoking status NHIS Former smoker [employer] Phone: End: 06-20-2004 History of tobacco use Current smoker [employer] Start: 10-30-2020 End: 11-06-2020 Tobacco use and exposure Never used [employer] Start: 1965 Sex Assigned At Not on file [employer] Work Phone: Start: 11-06-2020 Alcohol intake Ex-drinker (finding) [employer] Work Phone: Exposure to SARS-CoV-2 (event) Not sure [employer] Tobacco smoking status SCIS Tobacco smoking consumption unknown [facility] Gender identity Not on file [facility] Start: 04-19-2020 Tobacco smoking status NHIS Never smoked tobacco (finding) [facility] Start: 1965 Sex Assigned At Female F [facility] Telephone encounter Note 07-28-2023 Telephone Encounter - Leeroy Mckeon MD - 07/28/2023 1:17 PM EST Note Date & Type Note Facility 07-28-2023 Telephone encount er Note Patient [facility] not [facility]. Please add appointment. MAN [facility] Note 07-28-2023 Telephone Encounter - Leeroy Mckeon MD - 07/28/2023 1:17 PM EST Note Date & Type Note Facility 07-28-2023 Miscellaneous Notes Formattin g of this note might be different from the original. Patient has appointment 10/09 at 1:[facility] but not in [facility]. Please add appointment. MAN documented in this encounter [facility] History of Present illness Narrative 11-04-2020 Luciano Beach RN - 11/04/2020 12:51 PM EDT Note Date & Type Note Facility 11-04-2020 History of Present illness Narrative Preoperative Instructions: Stop eating solid foods at midnight the night prior to your surgery. Stop drinking clear liquids at midnight the night prior to your surgery. 5-20-21 Arrive at the surgery center (3rd entrance) on ___3-46-43 by ___1130 . Please stop any blood [...] drive you home after your procedure. 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 documented in this encounter [employer] Phone: Evaluation note Note Date & Type Note Facility Evaluation note Diagnosis Right groin pain Abdominal pain, right lower quadrant documented in this encounter [employer] Phone: Evaluation note Note Date & Type Note Facility Evaluation note Diagnosis Pre-op testing- Primary Preoperative examination, unspecified Acute post-operative pain documented in this encounter [employer] Phone: Evaluation note Note Date & Type Note Facility Evaluation note Diagnosis VIANCA (generalized anxiety disorder) ([facility] Primary Generalized anxiety disorder documented in this encounter [facility] Evaluation note Note Date & Type Note Facility Evaluation note [facility] Reason for Referral Status Reason Specialty Diagnoses / Procedures Referre d By Contact Referred To Contact Closed Radiology Diagnoses Right groin pain Procedures CT ABDOMEN PELVIS W IV CONTRAST Additional Contrast? Oral [id number] Philip Brown IV, DO [address] [facility] [address] [place] [address] Status Reason Specialty Diagnoses / Procedures Referre d By Contact Referred To Contact Open Cardiology Diagnoses Pre-op testing Procedures EKG 12 lead Jaelyn Welch MD [address] [place] [address] Summary Purpose Family History No Family History [...] PELVIS W IV CONTRAST Additional Contrast? Oral [id number] Canos, Philip Jose IV, DO [address] [facility] [address] [place] [address] Status Reason Specialty Diagnoses / Procedures Referre d By Contact Referred To Contact Diagnoses Umbilical hernia UMBILICAL HERNIA Procedures REPAIR UMBILICAL SILKE,5+Y/O,REDUC HERNIA UMBILICAL REPAIR LAPAROSCOPIC ROBOTIC WITH MESH Canos, Philip Jose IV, DO [address] [facility] [address] [place] [address] [facility] Reason Comments Med Refill Ordered Prescriptions [...] section and content) DATE CREATED AUTHOR 11/11/2020 [facility] DATE CREATED AUTHOR AUTHOR'S ORGANIZ ATION 11/03/2022 [facility] DATE CREATED AUTHOR AUTHOR'S ORGANIZ ATION 11/01/2023 [facility] DATE CREATED AUTHOR AUTHOR'S ORGANIZ ATION 12/15/2023 [facility] Care Teams (unrecognized sec tion and content) Orthopedic Tech Relationship Specialty Start Date End Date Leeroy [...] BE BASED ON THE PRIMARY CLINICAL RECORDS. [facility]. provides no warranty or guarantee of the accuracy or completeness of information in this document.
[2024-02-04 18:41] LABS: Bilirubin Urine NEGATIVE (NEGATIVE); Blood Urine NEGATIVE (NEGATIVE); Clarity Urine CLEAR (CLEAR); Color Urine DK. YELLOW (YELLOW); Glucose Urine UA NEGATIVE (NEGATIVE); Ketones Urine NEGATIVE (NEGATIVE); Leukocyte Esterase Urine NEGATIVE (NEGATIVE); Nitrite Urine POSITIVE (NEGATIVE); Protein Urine NEGATIVE (NEG/TRACE); Urine Microscopic Indicated YES; Urobilinogen Urine 0.2 EU/dL (0.2-1.0); pH Urine 5.5 (5.0-9.0)
--- NOTE | 2024-02-04 18:50 | ED_ITS ---
HPI HPI - General Adult General Chief complaint: Back Pain/Injury Stated complaint: BACK PAIN, IN TUESDAY/ON ANTIBIOTICS Time Seen by Provider: 02/04/24 18:45 Source: patient Mode of arrival: walk-in Limitations: no limitations History of Present Illness HPI narrative: Pt diagnosed with UTI and low back strain on ED visit 5 days ago in this ED. She was prescribed keflex and motrin. Her symptoms have worsened. Still with urinary symptoms and low back pain. No fever or chills. No abdominal pain, vomiting or diarrhea. She localizes pain to the left parasacral area. Related Data Home Medications ?Medication ?Instructions ?Recorded ?Confirmed buspirone 7.5 mg tablet 7.5 mg PO BID 12/05/23 02/04/24 calcium 500 mg tablet 500 mg PO DAILY 12/05/23 02/04/24 diazepam 5 mg tablet 5 mg PO .at hs PRN insomnia 12/05/23 02/04/24 lorazepam 1 mg tablet 1 mg PO TID PRN anxiety 12/05/23 02/04/24 metoprolol succinate 100 mg 100 mg PO DAILY 12/05/23 02/04/24 tablet,extended release 24 hr (Toprol XL) multivitamin 1 tab PO DAILY 12/05/23 02/04/24 quetiapine 300 mg tablet 600 mg PO BEDTIME 12/05/23 02/04/24 sertraline 100 mg tablet (Zoloft) 200 mg PO Q24H 12/05/23 02/04/24 zinc 50 mg capsule 50 mg PO DAILY 12/05/23 02/04/24 Previous Rx's ?Medication ?Instructions ?Recorded ciprofloxacin HCl 500 mg tablet 500 mg PO BID #14 tabs 02/04/24 (Cipro) methocarbamol 750 mg tablet 750 mg PO Q6H PRN pain #30 tabs 02/04/24 nabumetone 750 mg tablet 750 mg PO BID PRN pain #14 tabs 02/04/24 Allergies Allergy/AdvReac Type Severity Reaction Status Date / Time Penicillins Allergy Unknown Unknown Verified 01/30/24 23:45 Opioid HPI Opioid Management Most Recent Opioid Data: No Data to Display PFSH PFSH Medical History (Updated 02/04/24 @ 18:51 by Waldemar Brar) Hx of induced ?Z98.890 - Other specified postprocedural states (ICD-10) Schizophrenia ?F20.9 - Schizophrenia, unspecified (ICD-10) Depression ?F32.A - Depression, unspecified (ICD-10) Anxiety ?F41.9 - Anxiety disorder, unspecified (ICD-10) Surgical History (Updated 12/05/23 @ 07:50 by Zaria Eldridge, RN) H/O section ?Z98.891 - History of uterine scar from previous surgery (ICD-10) H/O gastric bypass ?Z98.84 - Bariatric surgery status (ICD-10) Family History (Updated 12/05/23 @ 14:09 by Zaria Eldridge, RN) Other Family history of COPD (chronic obstructive pulmonary disease) Family history of cancer Social History (Updated 12/05/23 @ 14:08 by Zaria Eldridge, RN) Within the past year, how often did you have a drink containing alcohol: never Score interpretation: A score less than 3 is consistent with normal alcohol consumption. 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 afebrile General: Well-appearing and in no apparent distress. Skin: Warm, dry, no pallor noted. No rash. Eye: Pupils are equal, round and EOMI. No scleral icterus. Cardiovascular: Regular Rate and Rhythm without murmur, gallop or rub. Respiratory: No accessory muscle use or respiratory distress. Lungs are clear to auscultation, no wheezing, rales or rhonchi Back: No midline thoracic or lumbar vertebral tenderness. No CVA tenderness. SOft tissue tenderness left parasacral area Musculoskeletal: normal ROM GI: Abdomen is soft, non-distended. Normal bowel sounds. No tenderness to palpation. No rebound, guarding, or rigidity noted. Neurological: A&O x4. No cranial nerve dysfunction observed. No truncal ataxia. Moves all extremities. Sensation intact. Psychiatric: Cooperative and interactive. Normal mood and affect. Constitutional Vital Signs, click to edit/add: Last Vital Signs Temp 98.4 F 02/04/24 18:05 Pulse 73 02/04/24 18:05 Resp 18 02/04/24 18:05 BP 160/98 H 08/17/24 18:05 Pulse Ox 98 02/04/24 18:05 O2 Del Method Room Air 02/04/24 18:05 Course Vital Signs Vital signs: Vital Signs Temperature 98.4 F 02/04/24 18:05 Pulse Rate 73 02/04/24 18:05 Respiratory Rate 18 02/04/24 18:05 Blood Pressure 160/98 H 02/04/24 18:05 Pulse Oximetry 98 02/04/24 18:05 Oxygen Delivery Method Room Air 02/04/24 18:05 Temperature 98.4 F 02/04/24 18:05 Pulse Rate 73 02/04/24 18:05 Respiratory Rate 18 02/04/24 18:05 Blood Pressure 160/98 H 02/04/24 18:05 Pulse Oximetry 98 02/04/24 18:05 Oxygen Delivery Method Room Air 02/04/24 18:05 Medical Decision Making MDM Narrative Medical decision making narrative: repeat UA reveals continued UT with Nitrites - will switch to Cipro. Exam consistent with low back / parasacral strain rather than pyelonephritis - with switch to relafen and robaxin. PCP follow up recommended. ED return if she worsens. Lab Data Labs: Lab Results 02/04/24 Range/Units 18:29 Urine Color Dk. yellow (YELLOW) Urine Clarity Clear (CLEAR) Urine pH 5.5 (5.0-9.0) Ur Specific [place] 1.020 (1.005-1.025) Urine Protein Negative (NEG/TRACE) mg/dL Urine Glucose (UA) Negative (NEGATIVE) mg/dL Urine Ketones Negative (NEGATIVE) mg/dL Urine Occult Blood Negative (NEGATIVE) Urine Nitrite Positive A (NEGATIVE) Urine Bilirubin Negative (NEGATIVE) Urine Urobilinogen 0.2 (0.2-1.0) EU/dL Ur Leukocyte Esterase Negative (NEGATIVE) Discharge Plan Discharge Stand Alone Forms: Portal Instructions Chief Complaint: Back Pain/Injury Clinical Impression: UTI (urinary tract infection), Strain of lumbar region Patient Disposition: Home, Self-Care Time of Disposition Decision: 18:50 Prescriptions / Home Meds: New ciprofloxacin HCl [Cipro] 500 mg tablet 500 mg PO BID Qty: 14 0RF methocarbamol 750 mg tablet 750 mg PO Q6H PRN (Reason: pain) Qty: 30 0RF nabumetone 750 mg tablet 750 mg PO BID PRN (Reason: pain) Qty: 14 0RF No Action buspirone 7.5 mg tablet 7.5 mg PO BID diazepam 5 mg tablet 5 mg PO .at hs PRN (Reason: insomnia) lorazepam 1 mg tablet 1 mg PO TID PRN (Reason: anxiety) metoprolol succinate [Toprol XL] 100 mg tablet extended release 24 hr 100 mg PO DAILY quetiapine 300 mg tablet 600 mg PO BEDTIME sertraline [Zoloft] 100 mg tablet 200 mg PO Q24H multivitamin Tablet 1 tab PO DAILY calcium 500 mg tablet 500 mg PO DAILY zinc 50 mg capsule 50 mg PO DAILY Print Language: Macedonian Instructions: Urinary Tract Infection in Women (ED), Low Back Strain (ED) Referrals: Leeroy Villafuerte MD [Primary Care Provider] - 1 week
[2024-02-04 18:51] LABS: RBC Urine 0-2 #/HPF (0-2)
[2024-02-04 18:52] LABS: Bacteria Urine NONE SEEN #/HPF (NONE SEEN); Cast Seen? NONE SEEN #/LPF (NONE SEEN); Crystals Seen? None Seen #/HPF (None Seen); Mucus Urine NONE SEEN (NONE SEEN); Squamous Epithelial Cell Urine FEW #/LPF (NONE/RARE); Urine Culture Indicated NO
[2024-02-04] MEDS: METHOCARBAMOL 500 MG TABLET PO (18:59)
[2024-02-04] MEDS: KETOROLAC TROMETHAMINE 10 MG TABLET PO (18:59)
[2024-02-04] MEDS: CIPROFLOXACIN HCL 500 MG TABLET PO (18:59)
== END 2024-02-04 19:03 | disposition home or self-care (01) ==
PROVIDERS: Emergency Provider Emergency Medicine; PCP Family Medicine
DX: S39.012A Strain of muscle, fascia and tendon of lower back, initial encounter (principal); N39.0 Urinary tract infection, site not specified; X58.XXXA Exposure to other specified factors, initial encounter; F17.200 Nicotine dependence, unspecified, uncomplicated
CPT/HCPCS: 81001; 99284

== ENCOUNTER 2024-10-25 13:56 | Outpatient (OUT) | payer OTHER, SELFPAY ==
--- NOTE | 2024-10-25 14:04 | MM_ITS ---
Patient Name: ATIF MEDLEY MR#: [id number] : 1965 Exam Date: 10/25/2024 Ordering Doctor: DR HERB MCKEON . RADIOLOGY REPORT PROCEDURE: MM TOMOSYNTHESIS SCREENING BI COMPARISON: MM TOMOSYNTHESIS SCREENING BI, 10/25/2023. MG MAMM SCREEN 3D GABRIEL CAD, 10/07/2022. MG MAMM SCREEN 3D GABRIEL CAD, 10/06/2021. MG MAMM GABRIEL SCRN W CAD DIG, 07/16/2013. INDICATIONS: Screening for malignant neoplasm Calculator Name NCI Breast Cancer Risk Assessment Tool 5 Year Breast Cancer Risk 2.70% Lifetime Breast Cancer Risk 14.80% Personal Breast Cancer No Personal Ovarian Cancer No Treatments None Family Cancers Mother with breast cancer at age 66; Aunt-paternal with breast cancer at age ~58. LOCATION: [facility] BREAST COMPOSITION: There are scattered areas of fibroglandular density. FINDINGS: DIAGNOSTIC CATEGORY 1--NEGATIVE. RIGHT BREAST: No significant suspicious finding. LEFT BREAST: No significant suspicious finding. RECOMMENDATIONS: ROUTINE MAMMOGRAM AND CLINICAL EVALUATION IN 12 MONTHS. PLEASE NOTE: A NORMAL MAMMOGRAM DOES NOT EXCLUDE THE POSSIBILITY OF BREAST CANCER. A CLINICALLY SUSPICIOUS PALPABLE LUMP SHOULD BE BIOPSIED. Dictated by: Preet Penn DO on 10/26/2024 at 13:20 Approved by: Preet Penn DO on 10/26/2024 at 13:21
== END 2024-10-25 13:57 | disposition home or self-care (01) ==
LOC: MAMMO 13:58
PROVIDERS: PCP Family Medicine; Visit Provider Family Medicine
DX: Z12.31 Encounter for screening mammogram for malignant neoplasm of breast (principal); Z80.3 Family history of malignant neoplasm of breast
CPT/HCPCS: 77063; 77067

== ENCOUNTER 2024-11-15 15:16 | Outpatient (OUT) | payer OTHER, SELFPAY ==
--- OUTSIDE RECORDS SUMMARY | 2020-03-26 10:30 | XMS_ITS | Continuity of Care Document ---
Author Organization 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, [address] [place] [address], [id number], [place] tel:[phone] [facility] No Information 0 Genoveva Alaniz. [address], [id number], [place]. tel:[phone] Referring Provider: Katty Tomas, [facility] [address], [address] . tel:[phone] OFFICE/OUTPATI ENT VISIT, EST [facility], [address] [place] [address] [place], [id number], tel:[phone] [facility] No Information 9 Ondina Sawant. [address] [facility] [address], [place], [place], [id number], [place]. tel:[phone] Referring Provider: Jese Gifford, [address] [facility] [address], [place], [address] . tel:[phone] OFFICE/OUTPATI ENT VISIT, [facility], [address] [place] [address] [address], [place], [place], [id number], [place] tel:[phone] [facility] No Information 7 No Information OFFICE/OUTPATI ENT VISIT, [facility], [address] [place] [address] [address], [place], [place], [id number], [place] tel:[phone] [facility] No Information 6 No Information OFFICE/OUTPATI ENT VISIT, [facility], [address] [place] [address] [address], [place], [place], [id number], [place] tel:[phone] [facility] No Information [address] [employer] [facility], [address] [place] [address] [address], [place], [place], [id number], [place] tel:[phone] [facility] No Information [address] [employer] [facility], [address] [place] [address] [address], [place], [place], [id number], [place] tel:[phone] [facility] No Information [address] [employer] [facility], [address] [place] [address] [address], [place], [place], [id number], [place] tel:[phone] [facility] No Information [address] [employer] [facility], [address] [place] [address] [address], [place], [place], [id number], [place] tel:[phone] [facility] IP No Information 5 Ondina Sawant. [address] [facility] [address], [place], [place], [id number], [place]. tel:[phone] Referring Provider: Jese Gifford, [address] [place] [address] Suite [facility], [place], [address] . tel:[phone] OFFICE/OUTPATI ENT VISIT, [facility] [employer] [facility], [address] [place] [address] [address], [place], [place], [id number], tel:[phone] [facility] No Information 5 Ondina Sawant. [address] [place] [address] [place] [address], [id number], [place]. tel:[phone] Referring Provider: Jese Gifford, [address] [place] [address] Suite [facility], [place], [address] . tel:[phone] OFFICE/OUTPATI ENT VISIT, [facility] [employer] [facility], [address] [place] [address] [address] , [place], [place], [id number], tel:[phone] [facility] No Information Ondina Sawant. [address] [place] [address] [place] [address], [id number], [place]. tel:[phone] Referring Provider: Jese Gifford, [address] [place] [address] [address] [facility], [place], [address] . tel:[phone] [facility] [employer] [facility], [address] [place] [address] [address] , [place], [place], [id number], tel:[phone] [facility] No Information 4 Ondina Sawant. [address] [place] [address] [place] [address], [id number], [place]. tel:[phone] Referring Provider: Jese Gifford, [address] [place] [address] [address] [facility], [place], [address] . tel:[phone] Family History Family Member Type Diagnosis Age At Onset No Information Payers Payer name Insurance type Covered constitution party ID Micheal hernandez(s) [employer] CI [id number] Social History Type Description Quantity Date Captured Comments Sex Female Smoking Status No Information Chief Complaint And Reason For Visit No Information Reason For Referral Reason For Referral No Information History Of Present Illness Encounter Date Complaint History Of Prese nt Illness No Information Functional Status Date Functional Assessmen t No Information Instructions Date Instruction Additional Infor mation No Information Assessments Type Assessment Date No Information Patient Care Teams Name Effective Dates (start - stop) Status Members No Information
--- OUTSIDE RECORDS SUMMARY | 2024-11-08 14:00 | XMS_ITS | Encounter Summary ---
Author Organization [facility] Address [address] [place] [address] Care Team Providers Care Ribbon Hand Name Role Phone Leeroy Villafuerte MD Primary Care Provider [phone] Reason for Visit * Reason Comments Follow-up Annual Exam Wellness Encounter Details Date Type Department Care Team ([facility] Contact Info) Description 11/08/2024 2:00 PM EDT Office Visit [facility] [address] [place] [phone] Leeroy Villafuerte MD [address] [place] [phone] Annual physical exam (Primary Dx); Benign essential hypertension (CMS/HCC); Undifferentiated schizophrenia (CMS/HCC); VIANCA (generalized anxiety disorder) (CMS/HCC); Primary insomnia; Morbid obesity due to excess calories (CMS/HCC) Social History Tobacco Use Types Packs/Day Years Used Date Smoking Tobacco: Former Cigarettes Q uit: 2004 Passive Smoke Exposure: Past Smokeless Tobacco: Never Alcohol Use Standard Drinks/Week Comments Never 0 (1 standard drink = 0.6 oz pur e alcohol) B1300 Health Literacy Answer Date Recor ded How often do you need to hav e someone help you when you read instructions, pamphlets, or other written material from your doctor or pharmacy? Rarely 11/02/2024 Humiliation, Afraid, Rape, and Kick questionnair e Answer Date Recorded Within the last year, have y ou been afraid of your partner or ex-partner? Patient declined 11/02/2024 Within the last year, have y ou been humiliated or emotionally abused in other ways by your partner or ex-partner? Patient declined 11/02/2024 Within the last year, have y ou been kicked, hit, slapped, or otherwise physically hurt by your partner or ex-partner? No 11/02/2024 Within the last year, have y ou been raped or forced to have any kind of sexual activity by your partner or ex-partner? No 11/02/2024 Social Connection and Isolat ion Panel [NHANES] Answer Date Recorded In a typical week, how many times do you talk on the phone with family, friends, or neighbors? Three times a week 11/02/2024 How often do you get togethe r with friends or relatives? Once a week 11/02/2024 How often do you attend chur or sabianist services? More than 4 times per year 11/02/2024 Do you belong to any clubs o r organizations such as scientologist groups, unions, fraternal or athletic groups, or school groups? Yes 11/02/2024 How often do you attend meet ings of the clubs or organizations you belong to? More than 4 times per year 11/02/2024 Are you , , di vorced, , never , or living with a partner? 11/02/2024 AUDIT-C Answer Date Recorded Q1: How often do you have a drink containing alcohol? Monthly or less 11/02/2024 Q2: How many drinks containi ng alcohol do you have on a typical day when you are drinking? Patient does not drink Q3: How often do you have si x or more drinks on one occasion? Never 11/02/2024 Overall Financial Resource Strain (CARDIA) Answe r Date Recorded How hard is it for you to pa y for the very basics like food, housing, medical care, and heating? Somewhat hard 11/02/2024 [facility] of Occupat ional Health - Occupational Stress Questionnaire Answer Date Recorded Do you feel stress - tense, restless, nervous, or anxious, or unable to sleep at night because your mind is troubled all the time - these days? Only a little 11/02/2024 Exercise Vital Sign Answer Date Recorde d On average, how many days pe r week do you engage in moderate to strenuous exercise (like a brisk walk)? Patient declined On average, how many minutes do you engage in exercise at this level? Patient declined 11/02/2024 Hunger Vital Sign Answer Date Recorded Within the past 12 months, y ou worried that your food would run out before you got the money to buy more. Never true 11/03/19 25 Within the past 12 months, t he food you bought just didn't last and you didn't have money to get more. Never true 11/02/2024 PRAPARE - Transportation Answer Date Re corded In the past 12 months, has l ack of transportation kept you from medical appointments or from getting medications? No 10/18 In the past 12 months, has l ack of transportation kept you from meetings, work, or from getting things needed for daily living? No 11/02/2024 Housing Stability Vital Sign Answer Lex e Recorded In the last 12 months, was t here a time when you were not able to pay the mortgage or rent on time? Yes 10/09/2023 In the last 12 months, how many places have you lived? 1 10/09/2023 In the last 12 months, was t here a time when you did not have a steady place to sleep or slept in a penitentiary (including now)? No 10/09/2023 Housing Stability Vital Sign Answer Lex e Recorded In the last 12 months, was t here a time when you were not able to pay the mortgage or rent on time? Yes 11/02/2024 Number of Times Moved in the Last Year Not on fi le 11/02/2024 At any time in the past 12 m [facility], were you homeless or living in a penitentiary (including now)? No 11/02/2024 Comments Unknown Sex and Gender Information Value Date Recorded Sex Assigned at Not on file Legal Sex Female 6:43 PM EDT Gender Identity Not on file Sexual Orientation Not on file documented as of this encounter Last Filed Vital Signs Vital Sign Reading Time Taken Comments Blood Pressure 130/80 11/08/2024 2:17 PM EDT Pulse 85 11/08/2024 2:17 PM EDT Temperature 35.3 C (95.5 F) 11/08/2024 2:17 PM EDT Respiratory Rate 20 11/08/2024 2:17 PM EDT Oxygen Saturation 95% 11/08/2024 2:17 PM EDT Inhaled Oxygen Concentration - - Weight 120 kg (265 lb) 11/08/2024 2:17 PM EDT Height 165.1 cm (5' 5 ) 11/08/2024 2:17 PM EDT Body Mass Index 44.1 11/08/2024 2:17 PM EDT documented in this encounter Progress Notes * Leeroy Villafuerte MD - 11/08/2024 2:43 PM EDTAssociated Problem(s): Undifferentiated schizophrenia (CMS/HCC) Mood controlled with medication and continue. * Leeroy Villafuerte MD - 11/08/2024 2:43 PM EDTAssociated Problem(s): Primary insomnia Sleeping well with medication and continue. * Leeroy Villafuerte MD - 11/08/2024 2:43 PM EDTAssociated Problem(s): Morbid obesity due to excess calories (CMS/HCC) Discussed proper diet and regular aerobic exercise. Recommend Weight Watchers and need to limit calories and smaller portions. Need to increase activity and regular aerobic exercise several days a week for 30 minutes at a time. * Leeroy Villafuerte MD - 11/08/2024 2:43 PM EDTAssociated Problem(s): VIANCA (generalized anxiety disorder) (CMS/HCC) Mood controlled with medication and continue. Use ativan PRN. * Leeroy Villafuerte MD - 11/08/2024 2:43 PM EDTAssociated Problem(s): Benign essential hypertension (CMS/HCC) BP controlled and monitor PRN. * Leeroy Villafuerte MD - 11/08/2024 2:00 PM EDT Images from the original note were not included. Subjective Patient ID: Becky Hardwick is a 59 y.o. female who presents for Follow-up and Annual Exam (Wellness). Follow up HTN, schizophrenia, anxiety, insomnia, and weight. Checking BP PRN and typically controlled. BP normal today. Taking medication daily and tolerating without side effects. Schizophrenia controlled with meds. No paranoia or delusions. No obsessions and functioning well. Not down or sad. Anxiety stable. Not as stressed out or overwhelmed. Not as nervous or worry as much. Not as boogie or irritable. Using ativan PRN and helps when needed. Sleeping well with medication. Able to fall asleep and stay asleep. Wakes up rested in am. Weight down 11 pounds in the past year. Not active and no regular exercise. Tries to watch diet and eat healthy. Increased fruits and vegetables. Smaller portions and limits snacking. Tries to limit total daily calories. Review of Systems Respiratory: Negative for cough, shortness of breath and wheezing. Cardiovascular: Negative for chest pain and palpitations. Gastrointestinal: Negative for abdominal pain, diarrhea, nausea and vomiting. Genitourinary: Negative for dysuria. Objective Physical Exam Constitutional: General: She is not in acute distress. Appearance: Normal appearance. HENT: Head: Normocephalic. Right Ear: Tympanic membrane normal. Left Ear: Tympanic membrane normal. Eyes: Extraocular Movements: Extraocular movements intact. Pupils: Pupils are equal, round, and reactive to light. Cardiovascular: Rate and Rhythm: Normal rate and regular rhythm. Heart sounds: No murmur heard. No friction rub. No gallop. Pulmonary: Effort: Pulmonary effort is normal. Breath sounds: Normal breath sounds. No wheezing, rhonchi or rales. Abdominal: General: Bowel sounds are normal. There is no distension. Palpations: Abdomen is soft. Tenderness: There is no abdominal tenderness. There is no guarding or rebound. Musculoskeletal: Cervical back: Neck supple. Right lower leg: No edema. Left lower leg: No edema. Neurological: Mental Status: She is alert. Assessment/Plan Problem List Items Addressed This Visit Primary insomnia Sleeping well with medication and continue. Benign essential hypertension (CMS/HCC) BP controlled and monitor PRN. VIANCA (generalized anxiety disorder) (CMS/HCC) Mood controlled with medication and continue. Use ativan PRN. Undifferentiated schizophrenia (CMS/HCC) Mood controlled with medication and continue. Morbid obesity due to excess calories (CMS/HCC) Discussed proper diet and regular aerobic exercise. Recommend Weight Watchers and need to limit calories and smaller portions. Need to increase activity and regular aerobic exercise several days a week for 30 minutes at a time. Other Visit Diagnoses Annual physical exam - Primary Relevant Orders Hemoglobin A1c Basic metabolic panel CBC and differential Hepatic function panel Lipid panel TSH W/REFLEX TO FT4 documented in this encounter Plan of Treatment Upcoming Encounters Date Type Department Care Team (Late st Contact Info) Description 05/13/2025 1:45 PM EST Office Visit [facility] [address] [place] [address] Leeroy Villafuerte MD [address] [place] [address] Scheduled Orders Name Type Priority Associated Diagnoses Orde r Schedule Hemoglobin A1c Lab Routine Annual physical exam Expected: 11/08/2024 (Approximate), Expires: 11/08/2025 Basic metabolic panel Lab Routine Annual physical exam Expected: 11/08/2024 (Approximate), Expires: 11/08/2025 CBC and differential Lab Routine Annual physical exam Expected: 11/08/2024 (Approximate), Expires: 11/08/2025 Hepatic function panel Lab Routine Annual physical exam Expected: 11/08/2024 (Approximate), Expires: 11/08/2025 Lipid panel Lab Routine Annual physical exam Expected: 11/08/2024 (Approximate), Expires: 11/08/2025 TSH W/REFLEX TO FT4 Lab Routine Annual physical exam Expected: 11/08/2024 (Approximate), Expires: 11/08/2025 documented as of this encounter Visit Diagnoses Diagnosis Annual physical exam- Primary Routine general medical examination at a health care facility Benign essential hypertension (CMS/HCC) Essential hypertension, benign Undifferentiated schizophrenia (CMS/HCC) VIANCA (generalized anxiety disorder) (CMS/[facility]) Generalized anxiety disorder Primary insomnia Persistent disorder of initiating or maintaining sleep Morbid obesity due to excess calories ([facility]) documented in this encounter Care Teams Ribbon Hand Relationship Specialty Start Date End Date Leeroy Villafuerte MD [address] [place] [address] PCP - General Family Medicine 02/18/23 documented as of this encounter
--- OUTSIDE RECORDS SUMMARY | 2024-11-15 14:53 | XMS_ITS | Encounter Summary ---
Author Organization [facility] Address [address] [place] [address] Care Team Providers Care Battery Hand Name Role Phone Leeroy Villafuerte MD Primary Care Provider [phone] Reason for Visit * Reason Comments Med Refill Encounter Details Date Type Department Care Team (Late st Contact Info) Description 10/24/2023 [facility] [address] [place] [address] Leeroy Villafuerte MD [address] [place] [phone] Primary insomnia (Primary Dx) Social History Tobacco Use Types Packs/Day Years Used Date Smoking Tobacco: Never Assessed Social Connection and Isolat ion Panel [NHANES] Answer Date Recorded In a typical week, how many times do you talk on the phone with family, friends, or neighbors? Twice a week 10/09/2023 How often do you get togethe r with friends or relatives? Once a week 10/09/2023 How often do you attend chur ch or islam services? More than 4 times per year 10/09/2023 Do you belong to any clubs o r organizations such as islam groups, unions, fraternal or athletic groups, or school groups? No 10/09/2023 How often do you attend meet ings of the clubs or organizations you belong to? Never 10/09/2023 Are you , , di vorced, , never , or living with a partner? 10/09/2023 AUDIT-C Answer Date Recorded Q1: How often do you have a drink containing alcohol? Never 10/09/2023 Q2: How many drinks containi ng alcohol do you have on a typical day when you are drinking? Patient does not drink Q3: How often do you have si x or more drinks on one occasion? Never 10/09/2023 Overall Financial Resource Strain (CARDIA) Answe r Date Recorded How hard is it for you to pa y for the very basics like food, housing, medical care, and heating? Somewhat hard 10/09/2023 [facility] Occupational Stress Questionnaire Answer Date Recorded Do you feel stress - tense, restless, nervous, or anxious, or unable to sleep at night because your mind is troubled all the time - these days? Only a little 10/09/2023 Exercise Vital Sign Answer Date Recorde d On average, how many days pe r week do you engage in moderate to strenuous exercise (like a brisk walk)? 0 days 10/09/2023 On average, how many minutes do you engage in exercise at this level? 0 min 10/09/2023 Hunger Vital Sign Answer Date Recorded Within the past 12 months, y ou worried that your food would run out before you got the money to buy more. Never true 10/09/19 24 Within the past 12 months, t he food you bought just didn't last and you didn't have money to get more. Never true 10/09/2023 PRAPARE - Transportation Answer Date Re corded In the past 12 months, has l ack of transportation kept you from medical appointments or from getting medications? No 09/19 In the past 12 months, has l ack of transportation kept you from meetings, work, or from getting things needed for daily living? No 10/09/2023 Housing Stability Vital Sign Answer [...] place to sleep or slept in a nursing home (including now)? No 10/09/2023 Comments Unknown Sex and Gender Information Value Date Recorded Sex Assigned at Not on file Legal Sex Female 6:43 PM EDT Gender Identity Not on file Sexual Orientation Not on file documented as of this encounter Miscellaneous Notes * Telephone Encounter - Leeroy Villafuerte MD - 10/25/2023 11:25 AM EDT Due for follow up visit. documented in this encounter Plan of Treatment Upcoming Encounters Date Type Department Care Team (Late st Contact Info) Description 05/13/2025 1:45 PM EST Office Visit [facility] [address] [place] [address] Leeroy Villafuerte MD [address] [place] [phone] documented as of this encounter Visit Diagnoses Diagnosis Primary insomnia- Primary Persistent disorder of initiating or maintaining sleep documented in this encounter Care Teams Battery Hand Relationship Specialty Start Date End Date Leeroy Villafuerte MD [address] [place] [address] PCP - General Family Medicine 02/18/23 documented as of this encounter
--- OUTSIDE RECORDS SUMMARY | 2024-11-15 14:53 | XMS_ITS | Clinical Summary ---
Author Organization [employer] Address [id number] [address] [place] [address] Care Team Providers Care Clubhouse Manager Name Role Phone Leeroy Villafuerte MD Primary Care Provider [phone] Allergies No known active allergies Medications metoprolol tartrate (LOPRESSOR) 50 mg tablet Take 1 tablet (50 mg total) by mouth in the morning and 1 tablet (50 mg total) before bedtime. 02/13/2020 Active QUEtiapine (SEROquel) 300 mg tablet Take 2 tablets (600 mg total) by mouth nightly. 02/13/2020 Active multivit-min/fe rrous fumarate (MULTI VITAMIN ORAL) Take by mouth. Active docosahexaenoic acid/epa (FISH OIL ORAL) Take by mouth. Active CALCIUM ORAL Take by mouth. Active ZINC ORAL Take by mouth. Active ascorbic acid (VITAMIN C) 500 mg tablet Take 500 mg by mouth daily. 3 tabs Active cholecalciferol (VITAMIN D3) 1,000 units tablet Take 1 tablet (1,000 Units total) by mouth in the morning. Active sertraline (ZOLOFT) 100 mg tablet Take 1 tablet (100 mg total) by mouth in the morning. TAKES 150 MG IN AM . Active valACYclovir (VALTREX) 500 mg tablet Take 1 tablet (500 mg total) by mouth in the morning and 1 tablet (500 mg total) before bedtime. Active LORazepam (ATIVAN) 1 mg tablet Take 1 tablet (1 mg total) by mouth once daily at bedtime. Active busPIRone (BUSPAR) 7.5 mg tablet Take 1 tablet (7.5 mg total) by mouth once daily at bedtime. Active aspirin 81 mg Take 81 mg by mouth daily. Active iron bis-gly/FA/C/B1 2/Ca/succ (IRON-150 ORAL) Take by mouth. Active Active Problems Problem Noted Date Diagnosed Date Family history of breast cancer 02/14/2024 Overview (02/14/2024): Mother age 66, paternal aunt age 58 Mammographic fibroglandular density, bilateral b reasts 02/14/2024 DDD (degenerative disc disease), lumbar 02/14/20 24 Overview (02/15/2024): Last Assessment & Plan: Pain improved and monitor. Handout with stretches to patient. Use OTC PRN. VIANCA (generalized anxiety disorder) 02/14/2024 Overview (02/15/2024): Last Assessment & Plan: Mood controlled with medication and continue. Use ativan PRN. BMI 45.0-49.9, adult 02/14/2024 Overview (02/15/2024): Last Assessment & Plan: Patient overweight and difficult time losing weight. Discussed proper diet and regular aerobic exercise. Recommend Weight Watchers and need to limit calories and smaller portions. Need to increase activity and regular aerobic exercise several days a week for 30 minutes at a time. Interested in adipex and warned of potential cardiac side effects. Script written for first month and will need to recheck weight in 1 month. OARRS reviewed. Continue medications as prescribed. Benign essential hypertension 02/14/2024 Overview (02/15/2024): Last Assessment & Plan: BP controlled and monitor PRN. Herpes labialis 01/12/2024 Schizophrenia Family History Medical History Relation Name Comments Kidney disease Father Breast cancer Mother Breast cancer Paternal Aunt Relation Name Status Comments Father Alive Mother Alive Paternal Aunt Social History Tobacco Use Types Packs/Day Years Used Date Smoking Tobacco: Some Days Cigarettes 1 20 Started: 06/1983; Last attempted to quit: 06/2003 Cigars Smokeless Tobacco: Never Tobacco Cessation:Ready to Q uit: Not Asked; Counseling Given: Not Answered Alcohol Use Standard Drinks/Week Comments Not Currently 0 (1 standard drink = 0.6 oz pur e alcohol) PHQ-2 Answer Date Recorded Total Score 2 02/15/2024 Childcare Answer Date Recorded Childcare Unknown 11/29/2018 Employment Answer Date Recorded Employment Unknown 11/29/2018 Hunger Screening Answer Date Recorded Within the past 12 months we worried whether our food would run out before we got money to buy more. Never True 02/15/2024 Within the past 12 months th e food we bought just didn't last and we didn't have money to get more. Never True 02/15/2024 Purpose - Life Answer Date Recorded Purpose and direction in life Unknown Comments No Sex and Gender Information Value Date Recorded Sex Assigned at Not on file Legal Sex Female 11:48 AM EDT Gender Identity Not on file Sexual Orientation Not on file Last Filed Vital Signs Vital Sign Reading Time Taken Comments Blood Pressure 120/78 02/15/2024 2:05 PM EDT Pulse 84 12/18/2020 11:04 AM EDT Temperature 36.4 C (97.5 F) 04/18/2020 4:01 PM EDT Respiratory Rate 18 12/18/2020 11:04 AM EDT Oxygen Saturation 99% 04/18/2020 9:19 PM EDT Inhaled Oxygen Concentration - - Weight 124.3 kg (274 lb) 02/15/2024 2:05 PM EDT Height 162.6 cm (5' 4 ) 02/15/2024 2:05 PM EDT Body Mass Index 47.03 02/15/2024 2:05 PM EDT Plan of Treatment Health Maintenance Due Date Last Done Comments Tobacco Counseling 1965 Adult BMI Follow Up Plan 02/14/2025 02/15/2024 Adult BMI Screening 02/14/2025 02/15/2024 Depression Screening 02/14/2025 02/15/2024 Tobacco Screening 02/14/2025 02/15/2024 Influenza Vaccine 02/18/2025 02/26/2020, , 04/04/2018, Additional history exists Pap Smear 02/14/2027 02/15/2024, 01/19, 10/21/2020, Additional history exists DTaP,Tdap and Td Vaccines (2 - Td or Tdap) 10/25/2029 10/26/2019 Zoster (Shingles) Vaccine Completed 07/25/2020, Medical Devices Not on file Procedures Procedure Name Priority Date/Time Associated Diagnosis Comments HIGH RISK HPV W/DENA Routine 02/15/2024 3:19 AM EDT Screening for cervical cancer from Last 3 Months or Most Recently Relevant to Health Maintenance Results * High risk HPV w/dena (02/15/2024 3:19 AM EDT) Hpv specimen type ThinPrep 02/16/2024 3:19 AM EDT [facility] Hpv 16 Negative Negative^N egative 02/16/2024 2:20 PM EDT [facility] Hpv 18 Negative Negative^N egative 02/16/2024 2:20 PM EDT [facility] Other high risk hpv Negative Negative^N egative 02/16/2024 2:20 PM EDT [facility] Comment: HPV types 31,33,35,39,45,52,56,58,59,66 and 68 DNA were undetectable. THINP 02/15/2024 3:19 AM EDT 02/16/2024 3:20 AM EDT us Nicki Mooney COVER CUTTER-GEOTHERMAL FIELD TECHNICIAN LAB BLOOD ORDERABLES Fin al Result [facility] [address] [place] [address] [facility] [address] [place] [address] from Last 3 Months or Most Recently Relevant to Health Maintenance Insurance [employer] Care Teams Clubhouse Manager Relationship Specialty Start Date End Date Leeroy Villafuerte MD PCP - General Family Medicine 04/25/18
--- OUTSIDE RECORDS SUMMARY | 2024-11-15 14:53 | XMS_ITS | Encounter Summary ---
Author Organization [facility] tem Address [id number] [address] [place] [address] Care Team Providers Care Inside Plant Supervisor Name Role Phone Leeroy Villafuerte MD Primary Care Provider [phone] Reason for Visit * Reason Onset Date Comments GENETICS 11/18/2020 CLERICAL Encounter Details Date Type Department Care Team (Late st Contact Info) Description 11/18/2020 Telephone [facility] Division of [facility] - Medical Oncology [address] [place] [address] Becky Kulkarni, [facility] [address] [address] GENETICS (CLERICAL) Social History Tobacco Use Types Packs/Day Years Used Date Smoking Tobacco: Former Cigarettes 1 20 Smokeless Tobacco: Never Alcohol Use Standard Drinks/Week Comments Not Currently 0 (1 standard drink = 0.6 oz pur e alcohol) Childcare Answer Date Recorded Childcare Unknown 11/29/2018 Employment Answer Date Recorded Employment Unknown 11/29/2018 Purpose - Life Answer Date Recorded Purpose and direction in life Unknown Comments No Sex and Gender Information Value Date Recorded Sex Assigned at Not on file Legal Sex Female 11:48 AM EDT Gender Identity Not on file Sexual Orientation Not on file COVID-19 Exposure Response Date Recorded In the last month, have you been in contact with someone who was confirmed or suspected to have Coronavirus / COVID-19? No / Unsure 11/04/2020 2:43 PM EDT documented as of this encounter Miscellaneous Notes * Telephone Encounter - Yojana Liz - 11/18/2020 1:01 PM EDT LVM on 11/18/2020 at 1:01 PM asking patient to return call to schedule genetics appointment.(ROSANA)DJO * Telephone Encounter - Yojana Liz - 11/18/2020 1:01 PM EDT LVM on 02/11/2021 at 10:46 AM asking patient to return call to schedule genetics appointment. ROSANA? DJO documented in this encounter Plan of Treatment Not on file documented as of this encounter Visit Diagnoses Not on filedocumented in this encounter Additional Health Concerns Assessment Noted Time A Body Mass Index follow-up plan has been documented for the patient 10/21/2020 4:37 PM EDT documented as of this encounter Care Teams Inside Plant Supervisor Relationship Specialty Start Date End Date Leeroy Villafuerte MD PCP - General Family Medicine 04/25/18 documented as of this encounter
--- OUTSIDE RECORDS SUMMARY | 2024-11-15 14:53 | XMS_ITS | Encounter Summary ---
Author Organization [facility] Address [address] [place] [address] Care Team Providers Care Technologist Infectious Disease Name Role Phone Leeroy Villafuerte MD Primary Care Provider [phone] Reason for Visit * Reason Comments Med Refill Encounter Details Date Type Department Care Team ([facility] st Contact Info) Description 11/13/2024 [facility]ill [facility] [address] [place] [address] Leeroy Villafuerte MD [address] [place] [phone] Morbid obesity due to excess calories (CMS/HCC) Social History Tobacco Use Types Packs/Day Years Used Date Smoking Tobacco: Former Cigarettes Q uit: 2005 Passive Smoke Exposure: Past Smokeless Tobacco: Never [...] How often do you attend chur or episcopal services? More than 4 times per year 11/02/2024 Do you belong to any clubs o r organizations such as adventism groups, unions, fraternal or athletic groups, or [...] medical care, and heating? Somewhat hard 11/02/2024 [facility] - Occupational Stress Questionnaire Answer Date [...] place to sleep or slept in a snf (including now)? No 10/09/2023 Housing Stability Vital Sign Answer Lex e Recorded In the last 12 months, was t here a time when you were not able to pay the mortgage or rent on time? Yes 11/02/2024 Number of Times Moved in the Last Year Not on fi le 11/02/2024 At any time in the past 12 m [facility], were you homeless or living in a snf (including now)? No 11/02/2024 Comments Unknown Sex and Gender Information Value Date Recorded Sex Assigned at Not on file Legal Sex Female 6:43 PM EDT Gender Identity Not on file Sexual Orientation Not on file documented as of this encounter Plan of Treatment Upcoming Encounters Date Type Department Care Team (Late st Contact Info) Description 05/13/2025 1:45 PM EST Office Visit [facility] [address] [place] [phone] Leeroy Villafuerte MD [address] [place] [address] documented as of this encounter Visit Diagnoses Diagnosis Morbid obesity due to excess calories (CMS/HCC) documented in this encounter Care Teams Technologist Infectious Disease Relationship Specialty Start Date End Date Leeroy Villafuerte MD [address] [place] [address] PCP - General Family Medicine 02/18/23 documented as of this encounter
--- OUTSIDE RECORDS SUMMARY | 2024-11-15 14:53 | XMS_ITS | Encounter Summary ---
Author Organization [facility] Address [address] [place] [address] Care Team Providers Care Oil Burner Servicer And Installer Name Role Phone Leeroy Villafuerte MD Primary Care Provider [phone] Encounter Details Date Type Department Care Team ([facility] Contact Info) Description 08/24/2023 Orders Only [facility] [address] [place] [address] Leeroy Villfauerte MD [address] [facility] [place] [address] Social History Tobacco Use Types Packs/Day Years Used Date Smoking Tobacco: Never Assessed Comments Unknown Sex and Gender Information Value Date Recorded Sex Assigned at Not on file Legal Sex Female 6:43 PM EDT Gender Identity Not on file Sexual Orientation Not on file documented as of this encounter Plan of Treatment Upcoming Encounters Date Type Department Care Team ([facility] Contact Info) Description 05/13/2025 1:45 PM EST Office Visit [facility] [address] [place] [address] Leeroy Villafuerte MD [address] [facility] [place] [address] documented as of this encounter Procedures Procedure Name Priority Date/Time Associated Diagnosis Comments LAB COLOGUARD COLON CANCER SCREEN Routine 08/20/2023 3:12 PM EST documented in this encounter Results * Cologuard?? colon cancer screening (08/20/2023 3:12 PM EST) Stool Leeroy Villafuerte MD LAB MOLECULAR DIAGNOSTICS ORDERA BLES Final Result documented in this encounter Visit Diagnoses Not on filedocumented in this encounter Care Teams Oil Burner Servicer And Installer Relationship Specialty Start Date End Date Leeroy Villafuerte MD [address] [place] [address] PCP - General Family Medicine 02/18/23 documented as of this encounter
--- OUTSIDE RECORDS SUMMARY | 2024-11-15 14:53 | XMS_ITS | Encounter Summary ---
Author Organization [facility] Address [address] [place] [address] Care Team Providers Care Photography Coordinator Name Role Phone Leeroy Villafuerte MD Primary Care Provider [phone] Reason for Visit * Reason Comments Med Refill Encounter Details Date Type Department Care Team (Late st Contact Info) Description 01/12/2024 [facility] [address] [place] [address] Leeroy Villafuerte MD [address] [place] [address] Herpes labialis (Primary Dx); Primary insomnia Social History Tobacco Use Types Packs/Day Years Used Date Smoking Tobacco: Former Cigarettes Q uit: 2005 Passive Smoke Exposure: Past Smokeless Tobacco: Never Alcohol Use Standard Drinks/Week Comments Never 0 (1 standard drink = 0.6 oz pur e alcohol) Social Connection and Isolat ion Panel [NHANES] Answer Date Recorded In a typical week, how many times do you talk on the phone with family, friends, or neighbors? Twice a week 10/09/2023 How often do you get togethe r with friends or relatives? Once a week 10/09/2023 How often do you attend chur ch or judaism services? More than 4 times per year 10/09/2023 Do you belong to any clubs o r organizations such as holiness groups, unions, fraternal or athletic groups, or [...] medical care, and heating? Somewhat hard 10/09/2023 [facility] - Occupational Stress Questionnaire Answer Date Recorded [...] place to sleep or slept in a chcf (including now)? No 10/09/2023 Comments Unknown Sex and Gender Information Value Date Recorded Sex Assigned at Not on file Legal Sex Female 6:43 PM EDT Gender Identity Not on file Sexual Orientation Not on file documented as of this encounter Miscellaneous Notes * Telephone Encounter - Leeroy Villafuerte MD - 01/12/2024 5:02 PM EDT Due for follow up visit. documented in this encounter Plan of Treatment Upcoming Encounters Date Type Department Care Team (Late st Contact Info) Description 05/13/2025 1:45 PM EST Office Visit [facility] [address] [place] [address] Leeroy Villafuerte MD [address] [place] [address] documented as of this encounter Visit Diagnoses Diagnosis Herpes labialis- Primary Herpes simplex without mention of complication Primary insomnia Persistent disorder of initiating or maintaining sleep documented in this encounter Care Teams Photography Coordinator Relationship Specialty Start Date End Date Leeroy Villafuerte MD [address] [place] [address] PCP - General Family Medicine 02/18/23 documented as of this encounter
--- OUTSIDE RECORDS SUMMARY | 2024-11-15 14:53 | XMS_ITS | Encounter Summary ---
Author Organization [facility] Address [address] [place] [address] Care Team Providers Care Decontamination Worker Name Role Phone Leeroy Villafuerte MD Primary Care Provider [phone] Encounter Details Date Type Department Care Team (Late st Contact Info) Description 11/14/2024 Refill [facility] [address] [place] [address] Leeroy Villafuerte MD [address] [place] [address] Morbid obesity due to excess calories (CMS/HCC); Herpes labialis Social History Tobacco Use Types Packs/Day Years [...] How often do you attend chur or faith services? More than 4 times per year 11/02/2024 Do you belong to any clubs o r organizations such as restorationism groups, unions, fraternal or athletic groups, or [...] medical care, and heating? Somewhat hard 11/02/2024 [facility] ional [facility] - Occupational Stress [...] place to sleep or slept in a senior living (including now)? No 10/09/2023 Housing Stability Vital Sign Answer Lex e Recorded In the last 12 months, was t here a time when you were not able to pay the mortgage or rent on time? Yes 11/02/2024 Number of Times Moved in the Last Year Not on fi le 11/02/2024 At any time in the past 12 m [facility], were you homeless or living in a senior living (including now)? No 11/02/2024 Comments Unknown Sex [...] Visit [facility] [address] [place] [address] Leeroy Villafuerte MD [address] [place] [address] documented as of this encounter Visit Diagnoses Diagnosis Morbid obesity due to excess calories (CMS/[facility]) Herpes labialis Herpes simplex without mention of complication documented in this encounter Care Teams Decontamination Worker Relationship Specialty Start Date End Date Leeroy Villafuerte MD [address] [place] [address] PCP - General Family Medicine 02/18/23 documented as of this encounter
--- OUTSIDE RECORDS SUMMARY | 2024-11-15 14:53 | XMS_ITS | Encounter Summary ---
Author Organization [facility] Address [address] [place] [address] Care Team Providers Care Carpenter Mate Name Role Phone Leeroy Villafuerte MD Primary Care Provider [phone] Reason for Visit * Reason Comments Med Refill Encounter Details Date Type Department Care Team (Late st Contact Info) Description 01/18/2024 [facility] [address] [place] [address] Leeroy Villafuerte MD [address] [place] [address] VIANCA (generalized anxiety disorder) ([facility]) Social History Tobacco Use Types Packs/Day Years [...] often do you attend chur ch or hindu services? More than 4 times per year 10/09/2023 Do you belong to any clubs o r organizations such as shinto groups, unions, fraternal or athletic groups, or [...] medical care, and heating? Somewhat hard 10/09/2023 [facility] - Occupational Stress Questionnaire Answer Date Recorded [...] place to sleep or slept in a [place] [facility] [place] facility (including now)? No 10/09/2023 Comments Unknown Sex and Gender Information Value Date Recorded Sex Assigned at Not on file Legal Sex Female 6:43 PM EDT Gender Identity Not on file Sexual Orientation Not on file documented as of this encounter Miscellaneous Notes * Telephone Encounter - Leeroy Villafuerte MD - 01/18/2024 2:18 PM EDT Last seen in March. Will not give additional refills without visit. documented in this encounter Plan of Treatment Upcoming Encounters Date Type Department Care Team (Late st Contact Info) Description 05/13/2025 1:45 PM EST Office Visit [facility] [address] [place] [address] Leeroy Villafuerte MD [address] [place] [address] documented as of this encounter Visit Diagnoses Diagnosis VIANCA (generalized anxiety disorder) ([facility]) Generalized anxiety disorder documented in this encounter Care Teams Carpenter Mate Relationship Specialty Start Date End Date Leeroy Villafuerte MD [address] [place] [address] PCP - General Family Medicine 02/18/23 documented as of this encounter
--- OUTSIDE RECORDS SUMMARY | 2024-11-15 14:53 | XMS_ITS | Encounter Summary ---
Author Organization [facility] Address [address] [place] [address] Care Team Providers Care Obstetrics Gyn Name Role Phone Leeroy Villafuerte MD Primary Care Provider [phone] Encounter Details Date Type Department Care Team (Late st Contact Info) Description 10/25/2023 Clinisync Result Encounter [facility] External Department Unsolicited Leeroy Villafuerte MD [address] [place] [address] Social History Tobacco Use Types Packs/Day Years [...] week 10/09/2023 How often do you attend [facility] or temple services? More than 4 times per year 10/09/2023 Do you belong to any clubs o r organizations such as zoroastrianism groups, unions, fraternal or athletic groups, or [...] medical care, and heating? Somewhat hard 10/09/2023 [facility] [place] of Occupat ional Health - Occupational Stress [...] place to sleep or slept in a fdc (including now)? No 10/09/2023 Comments Unknown Sex and Gender Information Value Date Recorded Sex Assigned at Not on file Legal Sex Female 6:43 PM EDT Gender Identity Not on file Sexual Orientation Not on file documented as of this encounter Plan of Treatment Upcoming Encounters Date Type Department Care Team ([facility] Contact Info) Description 05/13/2025 1:45 PM EST Office Visit [facility] [address] [place] [address] Leeroy Villafuerte MD [address] [place] [address] documented as of this encounter Procedures Procedure Name Priority Date/Time Associated Diagnosis Comments MM TOMOSYNTHESIS SCREENING BI 10/25/2023 4:31 PM EDT documented in this encounter Results * MM TOMOSYNTHESIS SCREENING BI (10/25/2023 4:31 PM EDT) Anatomical Region Laterality Modality Other 10/25/2023 4:31 PM EDT Narrative 10/25/2023 4:32 [place] [address] Mammography Report Signed Patient: ATIF HARDWICK MR#: [id number] : 1965 Acct:[id number] Age/Sex: 58 / F ADM Date: 10/25/23 Loc: MAMMO Attending Dr: Leeroy Villafuerte M.D. Ordering Physician: Leeroy Villafuerte M.D. Results: Date of Service: 10/25/23 Follow Up: Procedure(s): MM tomosynthesis screening BI Accession Number(s): [id number] cc: Leeroy Villafuerte M.D. Patient Name: ATIF HARDWICK MR#: [id number] : 1965 Exam Date: 10/25/2023 Ordering Doctor: DR Leeroy Villafuerte . RADIOLOGY REPORT PROCEDURE: MM TOMOSYNTHESIS SCREENING BI COMPARISON: MG MAMM SCREEN 3D GABRIEL CAD, 10/07/2022. MG MAMM SCREEN 3D GABRIEL CAD, 10/06/2021. MG MAMM SCREEN GABRIEL W CAD, 05/07/2020. MG MAMM GABRIEL SCRN W CAD DIG, 07/16/2013. INDICATIONS: screening Calculator Name NCI Breast Cancer Risk Assessment Tool 5 Year Breast Cancer Risk 2.60% Lifetime Breast Cancer Risk 15.20% Personal Breast Cancer No Personal Ovarian Cancer No Treatments None Family Cancers Mother with breast cancer at age 66; Aunt-paternal with breast cancer at age 58. LOCATION: [facility] BREAST COMPOSITION: There are scattered areas of fibroglandular density. FINDINGS: DIAGNOSTIC CATEGORY 2--BENIGN FINDING: [...] BIOPSIED. Dictated by: Dante Delatorre M.D. on 10/25/2023 at 16:29 Approved by: Dante Delatorre M.D. on 10/25/2023 at 16:31 Dictated By: Dante Delatorre M.D. Signed By: 10/25/23 1632 DD/ 163 TD/TT: Mat Roller: Procedure Note Radiology, Radiologist, MD - 10/25/2023 [place] [address] Mammography Report Signed Patient: ATIF HARDWICK JMR#: [id number] : 1965Acct:[id number] Age/Sex: 58 / FADM Date: 10/25/23 Loc: MAMMO Attending Dr: Leeroy Villafuerte M.D. Ordering Physician: Leeroy Villafuerte M.D.Results: Date of Service: 10/25/23Follow Up: Procedure(s): MM tomosynthesis screening BI Accession Number(s): [id number] cc: Leeroy Villafuerte M.D. Patient Name: ATIF HARDWICK MR#: [id number] : 1965 Exam Date: 10/25/2023 Ordering Doctor: DR Leeroy Palumbo RADIOLOGY REPORT PROCEDURE: MM TOMOSYNTHESIS SCREENING BI COMPARISON: MG MAMM SCREEN 3D GABRIEL CAD, 10/07/2022. MG MAMM SCREEN 3DBIL CAD, 10/06/2021. MG MAMM SCREEN GABRIEL W CAD, 05/07/2020. MG MAMM GABRIEL SCRN WCAD DIG, 07/16/2013. INDICATIONS: screening Calculator Name NCI Breast Cancer Risk Assessment Tool 5 Year Breast Cancer Risk 2.60% Lifetime Breast Cancer Risk 15.20% Personal Breast Cancer No Personal Ovarian Cancer No Treatments None Family Cancers Mother with breast cancer at age 66; Aunt-paternal with breast cancer at age 58. LOCATION: [facility] BREAST COMPOSITION: There are scattered areas of fibroglandulardensity. FINDINGS: DIAGNOSTIC CATEGORY 2--BENIGN FINDING: RIGHT BREAST: No significant suspicious finding. Scatteredbenign-appearing calcifications are present. No significant change has occurred. LEFT BREAST: No significant suspicious finding. Scatteredbenign-appearing calcifications are present. No significant change has occurred. RECOMMENDATIONS: ROUTINE MAMMOGRAM AND CLINICAL EVALUATION IN 12 MONTHS. PLEASE NOTE: A NORMAL MAMMOGRAM DOES NOT EXCLUDE THE POSSIBILITY OFBREAST CANCER. A CLINICALLY SUSPICIOUS PALPABLE LUMP SHOULD BE BIOPSIED. Dictated by: Dante Delatorre M.D. on 10/25/2023 at 16:29 Approved by: Dante Delatorre M.D. on 10/25/2023 at 16:31 Dictated By: Dante Delatorre M.D. Signed By:10/25/23 1632 DD/ 1631 TD/TT: Mat Roller: Leeroy Villafuerte MD [facility] Final Result documented in this encounter Visit Diagnoses Not on filedocumented in this encounter Care Teams Obstetrics Gyn Relationship Specialty Start Date End Date Leeroy Villafuerte MD [address] [place] [address] PCP - General Family Medicine 02/18/23 documented as of this encounter
--- OUTSIDE RECORDS SUMMARY | 2024-11-15 14:54 | XMS_ITS | Encounter Summary ---
Author Organization [facility] Address [address] [place] [address] Care Team Providers Care Linen Room Attendant Name Role Phone Leeroy Villafuerte MD Primary Care Provider [phone] Reason for Visit * Reason Comments Med Refill Encounter Details Date Type Department Care Team ([facility] st Contact Info) Description [facility]2024 [facility] [address] [place] [address] Leeroy Villafuerte MD [address] [place] [address] Herpes labialis Social History Tobacco Use Types [...] How often do you attend chur or sikh services? More than 4 times per year 11/02/2024 Do you belong to any clubs o r organizations such as buddhism groups, unions, fraternal or athletic groups, or [...] medical care, and heating? Somewhat hard 11/02/2024 [facility] ional Health - Occupational Stress [...] place to sleep or slept in a half-way (including now)? No 10/09/2023 Housing Stability Vital Sign Answer Lex e Recorded In the last 12 months, was t here a time when you were not able to pay the mortgage or rent on time? Yes 11/02/2024 Number of Times Moved in the Last Year Not on fi le 11/02/2024 At any time in the past 12 m [facility], were you homeless or living in a half-way (including now)? No 11/02/2024 Comments Unknown Sex and Gender Information Value Date Recorded Sex Assigned at Not on file Legal Sex Female 6:43 PM EDT Gender Identity Not on file Sexual Orientation Not on file documented as of this encounter Plan of Treatment Upcoming Encounters Date Type Department Care Team (Late st Contact Info) Description 05/13/2025 1:45 PM EST [facility] [address] [place] [phone] Leeroy Villafuerte MD [address] [place] [address] documented as of this encounter Visit Diagnoses Diagnosis Herpes labialis Herpes simplex without mention of complication documented in this encounter Care Teams Linen Room Attendant Relationship Specialty Start Date End Date Leeroy Villafuerte MD [address] [place] [address] PCP - General Family Medicine 02/18/23 documented as of this encounter
--- OUTSIDE RECORDS SUMMARY | 2024-11-15 14:54 | XMS_ITS | Clinical Summary ---
Author Organization [facility] Address [address] [place] [address] Care Team Providers Care Logistics Program Manager Name Role Phone Leeroy Villafuerte MD Primary Care Provider + Allergies No known active allergies Medications sertraline (ZOLOFT) 100 MG tablet Take 100 mg by mouth daily Active QUEtiapine (SEROQUEL XR) 300 MG extended release tablet Take 300 mg by mouth nightly Active metoprolol tartrate (LOPRESSOR) 50 MG tablet Take 50 mg by mouth 2 times daily Active Multiple Vitamins-Minerals (THERAPEUTIC MULTIVITAMIN-SCHOOL CROSSING GUARD ALS) tablet Take 1 tablet by mouth daily Active calcium carbonate (OSCAL) 500 MG TABS tablet Take 500 mg by mouth daily Active Sedley-3 Fatty Acids (FISH OIL) 1000 MG CAPS Take 3,000 mg by mouth 3 times daily Active aspirin 81 MG chewable tablet Take 81 mg by mouth daily Active Cholecalciferol (VITAMIN D3) 50 MCG (2000 UT) CAPS Take by mouth Active zinc 50 MG TABS tablet Take 50 mg by mouth daily Active docusate sodium (COLACE) 100 MG capsule Take 1 capsule by mouth 2 times daily 30 capsule 2 11/07/19 21 Active Additional Information Patient not taking.Reported on 04/22/2021 ondansetron (ZOFRAN ODT) 4 MG disintegrating tablet Take 1 tablet by mouth every 6 hours as needed for Nausea or Vomiting 20 tablet 11/07/19 21 Active Additional Information Patient not taking.Reported on 04/22/2021 Social History Tobacco Use Types Packs/Day Years Used Date Smoking Tobacco: Former Cigarettes Q uit: 2005 Smokeless Tobacco: Never Alcohol Use Standard Drinks/Week Comments Not Currently 0 (1 standard drink = 0.6 oz pur e alcohol) Comments No Sex and Gender Information Value Date Recorded Sex Assigned at Not on file Legal Sex Female 10:17 PM EST Gender Identity Not on file Sexual Orientation Not on file Last Filed Vital Signs Vital Sign Reading Time Taken Comments Blood Pressure 154/76 11/06/2020 5:15 PM EDT Pulse 80 11/20/2020 10:12 AM EDT Temperature 36.2 C (97.2 F) 11/06/2020 4:30 PM EDT Respiratory Rate 18 11/20/2020 10:12 AM EDT Oxygen Saturation 98% 11/20/2020 10:12 AM EDT Inhaled Oxygen Concentration - - Weight 113.4 kg (250 lb) 04/22/2021 1:44 PM EDT Height 162.6 cm (5' 4 ) 04/22/2021 1:44 PM EDT Body Mass Index 42.91 04/22/2021 1:44 PM EDT Plan of Treatment Not on file Insurance [employer] Care Teams Logistics Program Manager Relationship Specialty Start Date End Date Leeroy Villafuerte MD [address] [place] [address] PCP - General Family Medicine 10/08/20
--- OUTSIDE RECORDS SUMMARY | 2024-11-15 14:54 | XMS_ITS | Encounter Summary ---
Author Organization [facility] Address [address] [facility] [place] [address] Care Team Providers Care Tester/Lift Trucker Name Role Phone Leeroy Villafuerte MD Primary Care Provider [phone] Encounter Details Date Type Department Care Team (Late st Contact Info) Description 10/26/2023 Orders Only [facility] [address] [place] [address] Leeroy Villafuerte MD [address] [facility] [place] [phone] Social History Tobacco Use Types Packs/Day Years [...] 10/09/2023 How often do you attend chur or alevism services? More than 4 times per year [...] medical care, and heating? Somewhat hard 10/09/2023 [facility] - Occupational Stress Questionnaire Answer Date Recorded [...] a senior living (including now)? No 10/09/2023 Comments Unknown Sex [...] Office Visit [facility] [address] [place] [address] Leeroy Villafuerte MD [address] [place] [address] documented as of this encounter Procedures Procedure Name Priority Date/Time Associated Diagnosis Comments MM SCREENING MAMM WITH 3D DARWIN - US AND ADDITIONAL Routine 10/25/2023 10:24 AM EDT documented in this encounter Results * MM SCREENING MAMM WITH 3D DARWIN - US AND ADDITIONAL (10/25/2023 10:24 AM EDT) Anatomical Region Laterality Modality Radiographic Tere ging us Leeroy Villafuerte MD IMG XR PROCEDURES Final Result documented in this encounter Visit Diagnoses Not on filedocumented in this encounter Care Teams Tester/Lift Trucker Relationship Specialty Start Date End Date Leeroy Villafuerte MD [address] [place] [phone] PCP - General Family Medicine 02/18/23 documented as of this encounter
--- OUTSIDE RECORDS SUMMARY | 2024-11-15 14:54 | XMS_ITS | Encounter Summary ---
Author Organization [facility] Address [address] [place] [address] Care Team Providers Care Workers Compensation Claims Examiner Name Role Phone Leeroy Villafuerte MD Primary Care Provider [phone] Encounter Details Date Type Department Care Team ([facility] st Contact Info) Description 11/08/2024 [facility] [address] [place] [address] Leeroy Villafuerte MD [address] [place] [id number] Social History Tobacco Use Types Packs/Day Years [...] How often do you attend chur or denominational services? More than 4 times per year 11/02/2024 Do you belong to any clubs o r organizations such as jehovah's witness groups, unions, fraternal or athletic groups, or [...] medical care, and heating? Somewhat hard 11/02/2024 [facility] - Occupational Stress [...] place to sleep or slept in a mcc (including now)? No 10/09/2023 Housing Stability Vital Sign Answer Lex e Recorded In the last 12 months, was t here a time when you were not able to pay the mortgage or rent on time? Yes 11/02/2024 Number of Times Moved in the Last Year Not on fi le 11/02/2024 At any time in the past 12 m [facility], were you homeless or living in a mcc (including now)? No 11/02/2024 Comments Unknown Sex [...] Office Visit [facility] [address] [place] [address] Leeroy Villafuerte MD [address] [place] [address] documented as of this encounter Visit Diagnoses Not on filedocumented in this encounter Care Teams Workers Compensation Claims Examiner Relationship Specialty Start Date End Date Leeroy Villafuerte MD [address] [place] [address] PCP - General Family Medicine 02/18/23 documented as of this encounter
--- OUTSIDE RECORDS SUMMARY | 2024-11-15 14:54 | XMS_ITS | Encounter Summary ---
Author Organization [facility] Address [address] [place] [address] Care Team Providers Care Senior Storage Engineer Name Role Phone Leeroy Villafuerte MD Primary Care Provider [phone] Encounter Details Date Type Department Care Team ([facility] st Contact Info) Description 10/26/2024 Results Follow-Up [facility] [address] [place] [address] Leeroy Villafuerte MD [address] [place] [address] Social History Tobacco Use Types Packs/Day Years [...] any clubs o r organizations such as restoration groups, unions, fraternal or athletic groups, or [...] care, and heating? Somewhat hard 10/09/2023 [facility] - Occupational [...] in a half-way (including now)? No 10/09/2023 Comments Unknown Sex [...] Office Visit [facility] [address] [place] [address] Leeroy Villafuerte MD [address] [place] [phone] documented as of this encounter Visit Diagnoses Not on filedocumented in this encounter Care Teams Senior Storage Engineer Relationship Specialty Start Date End Date Leeroy Villafuerte MD [address] [place] [address] PCP - General Family Medicine 02/18/23 documented as of this encounter
--- OUTSIDE RECORDS SUMMARY | 2024-11-15 14:54 | XMS_ITS | Encounter Summary ---
Author Organization [facility] Address [address] [place] [address] Care Team Providers Care Service Desk Specialist Name Role Phone Leeroy Villafuerte MD Primary Care Provider [phone] Encounter Details Date Type Department Care Team ([facility] st Contact Info) Description 10/29/2024 Orders Only [facility] [address] [place] [phone] Leeroy Villafuerte MD [address] [place] [phone] Social History Tobacco Use Types Packs/Day Years [...] How often do you attend chur or protestant services? More than 4 times per year 11/02/2024 Do you belong to any clubs o r organizations such as taoism groups, unions, fraternal or athletic groups, or [...] medical care, and heating? Somewhat hard 11/02/2024 [facility] - Occupational Stress [...] the money to buy more. Never true 05/16/20 25 Within the past 12 months, t [...] place to sleep or slept in a long term (including now)? No 10/09/2023 Housing Stability Vital Sign Answer Lex e Recorded In the last 12 months, was t here a time when you were not able to pay the mortgage or rent on time? Yes 11/02/2024 Number of Times Moved in the Last Year Not on fi le 11/02/2024 At any time in the past 12 m [facility], were you homeless or living in a long term (including now)? No 11/02/2024 Comments Unknown Sex [...] Office Visit [facility] [address] [place] [address] Leeroy Villafuerte MD [address] [place] [address] documented as of this encounter Visit Diagnoses Not on filedocumented in this encounter Care Teams Service Desk Specialist Relationship Specialty Start Date End Date Leeroy Villafuerte MD [address] [place] [address] PCP - General Family Medicine 02/18/23 documented as of this encounter
--- OUTSIDE RECORDS SUMMARY | 2024-11-15 14:54 | XMS_ITS | Encounter Summary ---
Author Organization [facility] Address [address] [place] [address] Care Team Providers Care Education And Training Manager Name Role Phone Leeroy Villafuerte MD Primary Care Provider [phone] Encounter Details Date Type Department Care Team (Latest Contact Info) Description 11/02/2024 Travel Social History Tobacco Use Types Packs/Day Years [...] 11/02/2024 How often do you attend chur ch or yarsanism services? More than 4 times per year [...] medical care, and heating? Somewhat hard 11/02/2024 [facility] ional [facility] - Occupational Stress [...] place to sleep or slept in a custodial (including now)? No 10/09/2023 Housing Stability Vital Sign Answer Lex e Recorded In the last 12 months, was t here a time when you were not able to pay the mortgage or rent on time? Yes 11/02/2024 Number of Times Moved in the Last Year Not on fi le 11/02/2024 At any time in the past 12 m [facility], were you homeless or living in a custodial (including now)? No 11/02/2024 Comments Unknown Sex and Gender Information Value Date Recorded Sex Assigned at Not on file Legal Sex Female 6:43 PM EDT Gender Identity Not on file Sexual Orientation Not on file documented as of this encounter Functional Status * Audit-C Score Answer Date of Assessment Author 1 11/02/2024 5:13 PM EDT Heidit, Generic * Q1: How often do you have a drink containing alcohol? Answer Date of Assessment Author Monthly or less 11/02/2024 5:13 PM EDT Ashlie, Generic * Q2: How many drinks containing alcohol do you have on a typical day when you are drinking? Answer Date of Assessment Author Patient does not drink 11/02/2024 5:13 PM EDT My chart, Generic * Q3: How often do you have six or more drinks on one occasion? Answer Date of Assessment Author Never 11/02/2024 5:13 PM EDT Heidit, Generic documented as of this encounter Plan of Treatment Upcoming Encounters Date Type Department Care Team (Late st Contact Info) Description 05/13/2025 1:45 PM EST Office Visit [facility] [address] [place] [address] Leeroy Villafuerte MD [address] [place] [address] documented as of this encounter Visit Diagnoses Not on filedocumented in this encounter Care Teams Education And Training Manager Relationship Specialty Start Date End Date Leeroy Villafuerte MD [address] [place] [address] PCP - General Family Medicine 02/18/23 documented as of this encounter
[2024-11-15 15:17] LABS: Eosinophils Absolute Auto 0.1 10^3/uL (0.0-0.7); Eosinophils Percent Auto 2.5 % (0.9-7.0); Hematocrit 40.8 % (36.0-48.0); Hemoglobin 12.9 g/dL (12.0-16.0); Lymphocytes Absolute Auto 1.6 10^3/uL (1.2-3.8); Lymphocytes Percent Auto 40.6 % (20.5-60.0); Mean Corpuscular HGB Conc 31.6 g/dL (29.9-35.2); Mean Corpuscular Hemoglobin 29.4 pg (26.7-34.0); Mean Corpuscular Volume 92.9 fL (81.0-99.0); Mean Platelet Volume 9.5 fL (9.5-13.5); Monocytes Absolute Auto 0.4 10^3/uL (0.3-0.8); Monocytes Percent Auto 8.9 % (1.7-12.0); Neutrophils Absolute Auto 1.9 10^3/uL (1.4-6.5); Platelet Count 288 10^3/uL (150-450); Red Blood Count 4.39 10^6/uL (4.20-5.40); Red Cell Distribution Width 14.1 % (11.0-15.0); White Blood Count 3.9 10^3/uL (4.0-11.0)
--- OUTSIDE RECORDS SUMMARY | 2024-11-15 15:25 | XMS_ITS | CCD ---
Author Organization [facility] Care Team Providers Care Irrigator Sprinkling System Name Role Phone Leeroy Mckeon MD Primary Care Provider CANOS IV, PHILIPDAYNE RAMIREZ Admitting Unavaila ble CANOS IV, PHILIP RAMIREZ Attending Unavaila ble NADERER, LEEROY MULLIGAN Primary Care Unavailabl e CANOS IV, PHILIP RAMIREZ Referring Unavaila ble NADERER, LEEROY MULLIGAN Primary Care Unavailabl e NADERER, DR LEEROY Farah Admitting Unavailable NADEREMadison, DR LEEROY Farah Primary Care Unavailable NADMATTHEW, DR LEEROY Farah Consulting Unavailable NADEREMadison, DR LEEROY Farah Attending Unavailable NADERER, DR LEEROY Farah Admitting Unavailable ZIEBER, DR DANTE Wallace Consulting Unavailable MIKE, DR LEEROY Farah Primary Care Unavailable MIKE, DR LEEROY Farah Attending Unavailable MIKE, DR LEEROY Farah Consulting Unavailable Leeroy Mckeon MD Primary Care Provider DO Chris Vergara Attending Provider Chris Vergara Attending Unavailable Chris Vergara Admitting Unavailable LEEROY MCKEON Referring Unavailable LEEROY MCKEON Primary Care Unavailable MATILDA COLORADO Referring Unavailable MIKE, LEEROY Primary Care Unavailable Leeroy Mckeon MD Primary Care Provider LEEROY MCKEON Attending Unavailable LEEROY MCKEON Attending Unavailable LEEROY MCKEON Attending Unavailable Allergies Allergy Classification Reported Allergen(s) Allergy Type Date of Onset Reaction(s) Facility (16 sources) Penicillin G Drug Allergy 10-31-2023 Unknown [facility] Medications Current Medications Medication Drug Class(es) Dates [...] by mouth daily 0 Active busPIRone hydrochloride 15 mg oral tablet (20 sources) Start: 10-15-2024 take 1 tablet by mouth in the morning busPIRone (Buspar) 15 MG tablet Indications: Generalized anxiety disorder (CMS/HCC) Take 1 tablet (15 mg) by mouth in the morning and 1 tablet (15 mg) before bedtime. 180 tablet 3 10/15/2024 Active Start: 04-22-2020 take 1 tablet by cinthia th twice daily busPIRone (Buspar) 7.5 MG tablet Indications: Generalized anxiety disorder (CMS/HCC) TAKE 1 TABLET BY MOUTH TWICE DAILY 180 tablet 3 12/12/2023 Active End: 11-06-2020 take 7.5 mg by [...] meq/ml injectable solution (1 source) Start: 11-06-2020 bj monson rs infusion cholecalciferol 0.05 mg oral tablet (3 sources) Vitamin D Start: 04-20-2020 take 1 tablet by mouth once daily Cholecalciferol (Vitamin D3) (Vitamin D3) 50 mcg (2,000 unit) Tablet Active 2000 UNIT PO Daily April 20, 2020 12:00am Cholecalciferol (VITAMIN D3) 50 MCG (2000 UT) CAPS Take by mouth 0 Active 1 ml diphenhydrAMINE hydrochloride 50 mg/ml cartridge (1 source) Histamine-1 Receptor Antagonist Start: 11-06-2020 End: 11-06-2020 diphenhydrAMINE (BENADRYL) injection 12.5 mg docosahexaenoic acid 120 mg / eicosapentaenoic acid 180 mg oral capsule (2 sources) take 1 capsule by mouth three times daily Kenefic-3 Fatty Acids (FISH OIL) 1000 MG CAPS [...] 5 mg LORazepam 1 mg oral tablet (20 sources) Benzodiazepine Start: 10-29-2024 End: 11-28-2024 take 1 tablet by mouth every six hours for anxiety LORazepam (Ativan) 1 MG tablet Indications: VIANCA (generalized anxiety disorder) (CMS/HCC) Take 1 tablet (1 mg) by mouth every 6 (six) hours if needed for anxiety 120 tablet 10/29/2024 11/28/2024 Active Start: 06-11-2024 End: 08-06-2024 take 1 tablet by mouth three times daily as needed for anxiety LORazepam (Ativan) 1 MG tablet Indications: VIANCA (generalized anxiety disorder) (CMS/HCC) TAKE 1 TABLET(1 MG) BY MOUTH THREE TIMES DAILY NEEDED FOR ANXIETY 90 tablet 1 08/06/2024 Active Start: 01-18-2024 End: 04-28-2024 take 1 tablet by mouth three times daily as needed for anxiety LORazepam (Ativan) 1 MG tablet Indications: VIANCA (generalized anxiety disorder) (CMS/HCC) TAKE 1 TABLET(1 MG) BY MOUTH THREE TIMES DAILY FOR UP TO 20 DAYS NEEDED FOR ANXIETY 60 tablet 03/08/2024 Active Start: 07-28-2023 take 1 tablet by cinthia th three times daily as needed LORazepam (Ativan) 1 MG tablet Indications: VIANCA (generalized anxiety disorder) (CMS/HCC) TAKE 1 TABLET BY MOUTH THREE TIMES DAILY NEEDED 90 tablet 1 07/28/2023 Active 1 ml meperidine hydrochloride 50 mg/ml injection (1 source) Opioid Agonist Start: 11-06-2020 meperidine (DEMEROL) injection 12.5 mg 24 hr metoprolol succinate 100 mg extended release oral tablet (19 sources) beta-Adrenergic Barbie Start: 10-10-2024 take 1 tablet by mouth once daily metoprolol succinate XL (Toprol-XL) 100 MG 24 hr tablet Indications: Essential hypertension, benign (CMS/HCC) TAKE 1 TABLET BY MOUTH DAILY 90 tablet 3 10/10/2024 Active Start: 09-21-2023 take 1 tablet by cinthia th once daily metoprolol succinate XL (Toprol-XL) 100 MG 24 hr tablet Indications: Essential hypertension, benign (CMS/HCC) TAKE 1 TABLET BY MOUTH DAILY 90 tablet 3 09/21/2023 Active Start: 04-19-2020 take 50 mg by mouth [...] 11-06-2020 ondansetron (ZOFRAN) injecti on 4 mg phentermine hydrochloride 37.5 mg oral tablet (18 sources) Sympathomimetic Amine Anorectic Start: 11-14-2024 End: 12-14-2024 take 1 tablet by mouth before mealtime phentermine (Adipex-P) 37.5 MG tablet Indications: Morbid obesity due to excess calories (CMS/HCC) Take 1 tablet (37.5 mg) by mouth in the morning. Take before meals. 30 tablet 11/14/2024 12/14/2024 Active Start: 06-11-2024 End: 08-06-2024 take 1 tablet by mouth once daily before mealtime phentermine (Adipex-P) 37.5 MG tablet Indications: Morbid obesity due to excess calories (CMS/HCC) TAKE 1 TABLET BY MOUTH EVERY MORNING BEFORE A MEAL 30 tablet 08/06/2024 Active Start: 02-14-2024 End: 05-11-2024 take 1 tablet by mouth before mealtime phentermine (Adipex-P) 37.5 MG tablet Indications: Morbid obesity due to excess calories (CMS/HCC) TAKE 1 TABLET BY MOUTH IN THE MORNING BEFORE MEALS 30 tablet 03/08/2024 Active 1 ml promethazine hydrochloride 25 mg/ml injection (1 source) Phenothiazine Start: 11-06-2020 promethazine (PHENERGAN) injection 12.5 mg QUEtiapine 300 mg oral tablet (20 sources) Atypical Antipsychotic Start: 10-15-2024 take 2 tablets by mouth in the morning QUEtiapine (SEROquel) 300 MG tablet Indications: Primary insomnia Take 2 tablets (600 mg) by mouth in the morning and 2 tablets (600 mg) before bedtime. 180 tablet 3 10/15/2024 Active Start: 06-01-2024 take 1 tablet by cinthia th in the morning, then take 1 tablet by mouth at bedtime QUEtiapine (SEROquel) 300 MG tablet Indications: Primary insomnia 1 PO (300 mg) in am, 1 1/2 PO (450 mg) at bedtime 225 tablet 3 06/01/2024 Active Start: 12-07-2023 take 2 tablets by mo uth at bedtime QUEtiapine (SEROquel) 300 MG tablet Indications: Primary insomnia TAKE 2 TABLETS BY MOUTH AT BEDTIME 180 tablet 3 12/07/2023 Active Start: 04-20-2020 End: 04-22-2020 take 300 mg by mouth once daily at bedtime Quetiapine Active 300 MG PO Daily at bedtime April 22, 2020 1:00am take 1 tablet by cinthia th every twenty-four hours at bedtime QUEtiapine XR (SEROquel XR) 300 MG 24 hr tablet Take 300 mg by mouth at bedtime Active take 1 tablet by cinthia th once daily QUEtiapine (SEROQUEL XR) 300 MG extended release tablet Take 300 mg by mouth nightly 0 Active sertraline 100 mg oral tablet (19 sources) Serotonin Reuptake Inhibitor Start: 12-07-2023 take 2 tablets by mouth once daily sertraline (Zoloft) 100 MG tablet Indications: VIANCA (generalized anxiety disorder) (CMS/HCC) TAKE 2 TABLETS BY MOUTH DAILY 180 tablet 3 12/07/2023 Active Start: 04-19-2020 take 200 mg by mouth once priscila y Sertraline Active 200 MG PO Daily April 19, 2020 12:00am take 1 tablet by cinthia th once daily sertraline (ZOLOFT) 100 MG tablet [...] End: 10-28-2020 0.9 % sodium chloride bolus valACYclovir 500 mg oral tablet (16 sources) Herpesvirus Nucleoside Analog DNA Polymerase Inhibitor, Herpes Simplex Virus Nucleoside Analog DNA Polymerase Inhibitor, Herpes Zoster Virus Nucleoside Analog DNA Polymerase Inhibitor Start: 11-14-2024 take 1 tablet by mouth once daily valACYclovir (Valtrex) 500 MG tablet Indications: Herpes labialis Take 1 tablet (500 mg) by mouth Daily 30 tablet 5 11/14/2024 Active Start: 01-12-2024 take 1 tablet by cinthia th once daily valACYclovir (Valtrex) 500 MG tablet Indications: Herpes labialis TAKE 1 TABLET BY MOUTH DAILY 30 tablet 5 01/12/2024 Active Zinc (2 sources) Start: 04-20-2020 take 50 [...] 1 capsule by mouth daily 0 Active diazePAM 5 mg oral tablet (5 sources) Benzodiazepine Start: 01-12-2024 End: 02-14-2024 take 1 tablet by mouth at bedtime as needed diazePAM (Valium) 5 MG tablet Indications: Primary insomnia TAKE 1 TABLET BY MOUTH AT BEDTIME NEEDED 30 tablet 01/12/2024 02/14/2024 Discontinued Start: 04-19-2020 take 5 mg by mouth at bedtime Diazepam Active 5 MG PO Bedtime April 19, 2020 12:00am 2 ml fentaNYL 0.05 mg/ml injection (1 [...] Problem Date Documented Date Episodic/Chronic Abdominal pain (3 sources) Right inguinal pain; Translations: [Right lower quadrant pain] Onset: 02-15-2024 Episodic Anxiety disorders (20 sources) Generalized anxiety disorder; Translations: [Generalized anxiety disorder] Onset: 02-14-2024 07-28-2023 Chronic Essential hypertension (18 sources) Benign essential hypertension; Translations: [Essential (primary) hypertension] Onset: 02-14-2024 02-14-2024 Chronic Miscellaneous mental health disorders (20 sources) Primary insomnia; Translations: [Primary insomnia] Onset: 10-25-2023 10-25-2023 Chronic Other nervous system disorders (1 source) Acute postoperative pain; Translations: [Other acute postprocedural pain] Episodic Other nutritional; endocrine; and metabolic disorders (20 sources) Morbid obesity; Translations: [Morbid (severe) obesity due to excess calories] Onset: 02-14-2024 02-14-2024 Chronic Other screening for suspected conditions (not mental disorders or infectious disease) (5 sources) Encounter for screening mammogram for malignant neoplasm of breast; Translations: [Encounter for screening for malignant neoplasm of cervix] Onset: 10-07-2022 Episodic Residual codes; unclassified (1 source) Family history of malignant neoplasm of breast; Translations: [FAMILY HX MALIG NEOPLASM OF BREAST] Onset: 10-13-2022 Episodic Schizophrenia and other psychotic disorders (19 sources) Schizoaffective disorder; Translations: [Schizoaffective disorder, unspecified] Onset: 02-14-2024 04-19-2020 Chronic Spondylosis; intervertebral disc disorders; other back problems (16 sources) Degeneration of lumbar intervertebral disc; Translations: [DDD (degenerative disc disease), lumbar] Onset: 02-14-2024 02-14-2024 Chronic Unclassified (1 source) Gynecologic Exam Onset: 02-15-2024 Viral infection (1 source) Genital herpes simplex; Translations: [Herpesviral infection of urogenital system, unspecified] Onset: 01-12-2024 11-08-2024 Chronic Viral infection (16 sources) Herpes labialis; Translations: [Herpesviral vesicular dermatitis] Onset: 01-12-2024 01-12-2024 Episodic Results Test Name Value Interpretation Reference Range Facility MM TOMOSYNTHESIS SCREENING B Ion 10-26-2024 [place] [address] Mammography Report Signed Patient: BECKY HARDWICK MR#: [id number] : 1965 Acct:[id number] Age/Sex: 59 / F ADM Date: 10/25/24 Loc: MAMMO Attending Dr: Leeroy Mckeon M.D. Ordering Physician: Leeroy Mckeon M.D. Results: Date of Service: 10/25/24 Follow Up: Procedure(s): MM tomosynthesis screening BI Accession Number(s): [id number] cc: Leeroy Mckeon M.D. Patient Name: BECKY HARDWICK MR#: [id number] : 1965 Exam Date: 10/25/2024 Ordering Doctor: DR LEEROY MCKEON . RADIOLOGY REPORT PROCEDURE: MM TOMOSYNTHESIS SCREENING BI COMPARISON: MM TOMOSYNTHESIS SCREENING BI, 10/25/2023. MG MAMM SCREEN 3D GABRIEL CAD, 10/07/2022. MG MAMM SCREEN 3D GABRIEL CAD, 10/06/2021. MG MAMM GABRIEL SCRN W CAD DIG, 07/16/2013. INDICATIONS: Screening for malignant neoplasm Calculator Name NCI Breast Cancer Risk Assessment Tool 5 Year Breast Cancer Risk 2.70% Lifetime Breast Cancer Risk 14.80% Personal Breast Cancer No Personal Ovarian Cancer No Treatments None Family Cancers Mother with breast cancer at age 66; Aunt-paternal with breast cancer at age 58. LOCATION: [facility] BREAST COMPOSITION: There are scattered areas of fibroglandular density. FINDINGS: DIAGNOSTIC CATEGORY 1--NEGATIVE. RIGHT BREAST: No significant suspicious finding. LEFT BREAST: No significant suspicious finding. RECOMMENDATIONS: ROUTINE MAMMOGRAM AND CLINICAL EVALUATION IN 12 MONTHS. PLEASE NOTE: A NORMAL MAMMOGRAM DOES NOT EXCLUDE THE POSSIBILITY OF BREAST CANCER. A CLINICALLY SUSPICIOUS PALPABLE LUMP SHOULD BE BIOPSIED. Dictated by: Preet Penn DO on 10/26/2024 at 13:20 Approved by: Preet Penn DO on 10/26/2024 at 13:21 Dictated By: Preet Penn M.D. Signed By: 10/26/24 1321 DD/ 1321 TD/TT: [employer]: [facility] Radiology, Radiologist, MD - 10/26/2024 [place] [address] Mammography Report Signed Patient: BECKY HARDWICK MR#: [id number] : 1965 Acct:[id number] Age/Sex: 59 / F ADM Date: 10/25/24 Loc: MAMMO Attending Dr: Leeroy Mckeon M.D. Ordering Physician: Leeroy Mckeon M.D. Results: Date of Service: 10/25/24 Follow Up: Procedure(s): MM tomosynthesis screening BI Accession Number(s): [id number] cc: Leeroy Mckeon M.D. Patient Name: BECKY HARDWICK MR#: [id number] : 1965 Exam Date: 10/25/2024 Ordering Doctor: DR LEEROY MCKEON . RADIOLOGY REPORT PROCEDURE: MM TOMOSYNTHESIS SCREENING BI COMPARISON: MM TOMOSYNTHESIS SCREENING BI, 10/25/2023. MG MAMM SCREEN 3D GABRIEL CAD, 10/07/2022. MG MAMM SCREEN 3D GABRIEL CAD, 10/06/2021. MG MAMM GABRIEL SCRN W CAD DIG, 07/16/2013. INDICATIONS: Screening for malignant neoplasm Calculator Name NCI Breast Cancer Risk Assessment Tool 5 Year Breast Cancer Risk 2.70% Lifetime Breast Cancer Risk 14.80% Personal Breast Cancer No Personal Ovarian Cancer No Treatments None Family Cancers Mother with breast cancer at age 66; Aunt-paternal with breast cancer at age 58. LOCATION: [facility] BREAST COMPOSITION: There are scattered areas of fibroglandular density. FINDINGS: DIAGNOSTIC CATEGORY 1--NEGATIVE. RIGHT BREAST: No significant suspicious finding. LEFT BREAST: No significant suspicious finding. RECOMMENDATIONS: ROUTINE MAMMOGRAM AND CLINICAL EVALUATION IN 12 MONTHS. PLEASE NOTE: A NORMAL MAMMOGRAM DOES NOT EXCLUDE THE POSSIBILITY OF BREAST CANCER. A CLINICALLY SUSPICIOUS PALPABLE LUMP SHOULD BE BIOPSIED. Dictated by: Preet Penn DO on 10/26/2024 at 13:20 Approved by: Preet Penn DO on 10/26/2024 at 13:21 Dictated By: Preet Penn M.D. Signed By: 10/26/24 1321 DD/ 1321 TD/TT: [employer]: [facility] Georgina Goodman Radiology Study observation (narrative) [facility] MM TOMOSYNTHESIS SCREENING B IOrdered By: Radiologist Radiology on 10-26-2024 [facility] Georgina Goodman Work Phone: Cytologyon 02-15-2024 Cytology Normal [facility] Comment on above: Result Comment: [facility] [address] [place] [address] Gynecologic Cytology Consultation Patient Name:BECKY HARDWICK:1965 (Age: 58)Gender:FTaken:02/15/2024eported:03/03/2024hysician(s):RACHEL Deng ([phone])Copy To: Rec. #:[id number]: #[id number] Final Cytologic Interpretation ThinPrep Pap Test (Cervical): Satisfactory for evaluation. NEGATIVE FOR INTRAEPITHELIAL LESION OR MALIGNANCY. The cytologic changes of atrophy are noted. 03/03/2024 [facility] [place] [address], License number: [id number]. Electronically Signed Out By JAIDA Witt (ASCP) Date of Last Menstrual Period: (None Given) Other Clinical Conditions: Postmenopausal Z12.4 Screening for malignant neoplasm of cervix Source of Specimen ThinPrep Pap Test (Cervical) Thin Prep Pap (ARABIC TRANSLATOR) Fee Code(s): G0145 The Pap test is a screening test with an inherent, but low, probability of error. The Pap test is primarily effective for the diagnosis and prevention of squamous cell carcinoma. Regular screening is critical for prevention. ThinPrep liquid-based slides, which meet the Electronic Systems Technician criteria for automated screening, have been screened by the ThinPrep Imaging System (as of 03/06/07) along with an additional manual rescreening by a lineman apprentice and, if indicated, by a pathologist. HIGH RISK HPV W/GENOon 02-14 HPV 31+33+35+39+45+51+52 +56+58+59+66+68 DNA NEIL+probe Ql (Cvx) HPV SPECIMEN TYPE ThinPrep HPV 16 Negative (qualifier value) HPV 18 Negative (qualifier value) OTHER HIGH RISK HPV Negative (qualifier value) HPV types 31,33,35,39,45,52,56, 58,59,66 and 68 DNA were undetectable. Normal [facility] Comment on above: Performed By: #### 7 1431-1 #### [facility] ([id number]) [address] [place] [address], [place], [place] [id number] [place] [address] LAB ([id number]) [address] [place] [address], [address] [place] [address] [facility] 12-13-2023 L Specimen: [id number] Received: 12/14/23 Status: RILEY Charles Num: [id number] Spec Type: Surgical Subm Dr: Chris Vergara DO Tissues: A Colon Biopsy (DESC POLYP 40 CM) B Colon Biopsy (DESC POLYP 20 CM) Procedures: HE/4, Gross/Micro L4/2 Age/ Patient Sex Location Account Attending Physician Becky Hardwick 58/F LABE[facility] [id number] Chris Vergara DO SPEC NUM: [id number] RECD: 12/14/23 STATUS: RILEY CHARLES NUM: [id number] TYLER: 12/13/[address]: Chris Vergara DO ENTERED: 12/14/[address] [facility] [address]: Barbie Maldonado SPEC TYPE: Surgical [...] polypoid tissue fragment, entirely submitted in B1. -------- Specimen: [id number] Received: 12/14/23 Status: RILEY Chancediana Num: [id number] Spec Type: Surgical Subm Dr: Chris Vergara DO Tissues: A Colon Biopsy (DESC POLYP 40 CM) B Colon Biopsy (DESC POLYP 20 CM) Procedures: HE/Caitlyn, Gross/Micro L4/2 -------- Patient: Becky Hardwick [id number] (Continued) -------- Specimen: [id number] Received: 12/14/23 (Continued) Signed (signature on file) Candace Prasad MD 12/15/23 1558 -------- Specimen: [id number] Received: 12/14/23 Status: RILEY Charles Num: [id number] Spec Type: Surgical Subm Dr: Chris Vergara DO Tissues: A Colon Biopsy (DESC POLYP 40 CM) B Colon Biopsy (DESC POLYP 20 CM) Procedures: Lena SEGUNDO/Sarahy L4/2 -------- Patient: Becky Hardwick [id number] (Continued) -------- Specimen: [id number] Received: 12/14/23 (Continued) CPT Codes 73142x6 -------- -------- Specimen: [id number] Received: 12/14/23 Status: RILEY Melvin Num: [id number] Spec Type: Surgical Subm Dr: Chris Vergara DO Tissues: A Colon Biopsy (DESC POLYP 40 CM) B Colon Biopsy (DESC POLYP 20 CM) Procedures: SANYA, Lena/Sarahy L4/2 -------- Patient: Becky Hardwick [id number] (Continued) -------- Signed (signature on file) Candace Prasad MD 12/15/23 1558 Normal [facility] MG MAMM SCREEN 3D GABRIEL CADon 10-07-2022 MG MAMM SCREEN 3D GABRIEL CAD Patient: BECKY HARDWICK Exam Date: 10/07/2022 : 1965 Gender:F Ordering : DR LEEROY MCKEON . Admission #: [id number] Family : Order #: [id number] CLICK HERE TO VIEW EXAM RADIOLOGY REPORT [...] breast cancer at age 59. LOCATION: [facility] BREAST COMPOSITION: Scattered areas fibroglandular density. FINDINGS: [...] M.D. on 10/07/2022 at 14:39 Normal [facility] CBC AUTO DIFFon 07-28-2022 BASO # 0.0 103/ul Normal 0.0-0.1 [facility] Comment on above: Performed By: #### C BC #### [facility] [address] [place], [place] [address] Dr. Mary Bolanos Basophils/100 WBC (Bld) 1.0 % Normal 0.2-2.0 [facility] Comment on above: Performed By: #### C BC #### [facility] [address] [place], [place] [address] Dr. Mary Bolanos EO # 0.1 103/ul Normal 0.0-0.7 [facility] Comment on above: Performed By: #### C BC #### [facility] [address] [place] [address] Dr. Mary Bolanos Eosinophils/100 WBC (Bld) 2.8 % Normal 0.9-7.0 [facility] Comment on above: Performed By: #### C BC #### [facility] [address] [place] [address] Dr. Mary Bolanos Erythrocyte distribution width (RBC) [Ratio] 14.5 % Normal 11.0-15.0 [facility] Comment on above: Performed By: #### C BC #### [facility] [address] [place] [address] Dr. Mary Bolanos Hematocrit (Bld) [Volume fraction] 40.4 % Normal 36.0-48.0 [facility] Comment on above: Performed By: #### C BC #### [facility] [address] [place] [address] Dr. Mary Bolanos Hemoglobin (Bld) [Mass/Vol] 12.3 g/dL Normal 12.0-16.0 [facility] Comment on above: Performed By: #### C BC #### [facility] [address] [place] [address] Dr. Mary Bolanos IG # 0.01 10e3/ul Normal 0.00-0.03 [facility] Comment on above: Performed By: #### C BC #### [facility] [address] [place] [address] Dr. Mary Bolanos IG % 0.3 % Normal 0.0-0.5 [facility] Comment on above: Performed By: #### C BC #### [facility] [address] [place] [address] Dr. Mary Bolanos LYMPH # 1.9 103/ul Normal 1.2-3.8 [facility] Comment on above: Performed By: #### C BC #### [facility] [address] [place] [address] Dr. Mary Bolanos Lymphocytes/100 WBC (Bld) 48.0 % Normal 20.5-60.0 [facility] Comment on above: Performed By: #### C BC #### [facility] [address] [place] [address] Dr. Mary Bolanos MANUAL DIFF REQ NO Normal [facility] Comment on above: Performed By: #### C BC #### [facility] [address] [place] [address] Dr. Mary Bolanos MCH (RBC) [Entitic mass] 28.2 pg Normal 26.7-34.0 [facility] Comment on above: Performed By: #### C BC #### [facility] [address] [place] [address] Dr. Mayr Bolanos MCHC (RBC) [Mass/Vol] 30.4 g/dL Normal 29.9-35.2 [facility] Comment on above: Performed By: #### C BC #### [facility] [address] [place] [address] Dr. Mary Bolanos MCV (RBC) [Entitic vol] 92.7 fL Normal 81.0-99.0 [facility] Comment on above: Performed By: #### C BC #### [facility] [address] [place] [address] Dr. Mary Bolanos MONO # 0.3 103/ul Normal 0.3-0.8 [facility] Comment on above: Performed By: #### C BC #### [facility] [address] [place] [address] Dr. Mary Bolanos Monocytes/100 WBC (Bld) 7.8 % Normal 1.7-12.0 [facility] Comment on above: Performed By: #### C BC #### [facility] [address] [place] [address] Dr. Mary Bolanos NEUT # 1.6 103/ul Normal 1.4-6.5 [facility] Comment on above: Performed By: #### C BC #### [facility] [address] [place] [address] Dr. Mary Bolanos Neutrophils/100 WBC (Bld) 40.1 % Critically low 43.0-75.0 [facility] Comment on above: Performed By: #### C BC #### [facility] [address] [place] [address] Dr. Mary Bolanos Platelet mean volume (Bld) [Entitic vol] 9.0 fL Critically low 9.5-13.5 [facility] Comment on above: Performed By: #### C BC #### [facility] [address] [place] [address] Dr. Mary Bolanos PLT 291 103/ul Normal 150-450 [facility] Comment on above: Performed By: #### C BC #### [facility] [address] [place] [address] [address] Mary Bolanos RBC 4.36 106/ul Normal 4.20-5.40 [facility] Comment on above: Performed By: #### C BC #### [facility] [address] [place] [address] Dr. Mary Bolanos WBC 4.0 103/ul Normal 4.0-11.0 [facility] Comment on above: Performed By: #### C BC #### [facility] [address] [place] [address] Dr. Mary Bolanos GLYCOHEMOGLOBIN A1Con 2022 ADA RECOMMENDATION SEE BELOW Normal [facility] Comment on above: Result Comment: ADA RECOMMENDED LIMIT 4.0 - 6.0 ADA THERAPEUTIC TARGET < 7.0 ACTION SUGGESTED > 7.0 Performed By: #### A 1C #### [facility] [address] [place] [address] Dr. Mary Bolanos Glucose [Mass/Vol] 103 mg/dL Normal [facility] Comment on above: Performed By: #### A 1C #### [facility] [address] [place] [address] Dr. Mary Bolanos HbA1c (Bld) [Mass fraction] 5.2 % Normal 4.5-6.2 [facility] Comment on above: Performed By: #### A 1C #### [facility] [address] [place] [address] Dr. Mary Bolanos LIPID PROFILEon 07-28-2022 CHOL-HDL RATIO NORM SEE BELOW Normal [facility] Comment on above: Result Comment: 3.3 - 4.4 LOW RISK 4.4 - 7.1 AVERAGE RISK 7.1 - 11.0 MODERATE RISK >11.0 HIGH RISK Performed By: #### T SH, LIPID, BMP, LIVER #### [facility] [address] [place] [address] Dr. Mary Bolanos Cholesterol [Mass/Vol] 214 mg/dL Critically high <=200 [facility] Comment on above: Performed By: #### T SH, LIPID, BMP, LIVER #### [facility] [address] [place] [address] Dr. Mary Bolanos Cholesterol in HDL [Mass/Vol] 64 mg/dL Critically high 40-60 [facility] Comment on above: Performed By: #### T SH, LIPID, BMP, LIVER #### [facility] [address] [place] [address] Dr. Mary Bolanos Cholesterol in LDL [Mass/Vol] 132.2 mg/dL Normal [facility] Comment on above: Performed By: #### T SH, LIPID, BMP, LIVER #### [facility] [address] [place] [address] Dr. Mary Bolanos Cholesterol.total/Ch olesterol in HDL [Mass ratio] 3.3 {ratio} Normal [facility] Comment on above: Performed By: #### T SH, LIPID, BMP, LIVER #### [facility] [address] [place] [address] Dr. Mary Bolanos HDL NORMAL > or = 60 mg/dl - LO W CARDIOVASCULAR RISK <40 mg/dl - HIGH CARDIOVASCULAR RISK Normal [facility] Comment on above: Performed By: #### T SH, LIPID, BMP, LIVER #### [facility] [address] [place] [address] Dr. Mary Bolanos LDL CALC NORMAL SEE BELOW Normal [facility] Comment on above: Result Comment: <100 mg/dl OPTIMAL 100 - 129 mg/dl NEAR OR ABOVE OPTIMAL 130 - 159 mg/dl BORDERLINE HIGH 160 - 189 mg/dl HIGH >190 mg/dl VERY HIGH Performed By: #### T SH, LIPID, BMP, LIVER #### [facility] [address] [place] [address] Dr. Mary Bolanos Triglyceride [Mass/Vol] 89 mg/dL Normal <=150 [facility] Comment on above: Performed By: #### T SH, LIPID, BMP, LIVER #### [facility] [address] [place] [address] Dr. Mary Bolanos VLDL CALC 17.8 mg/dL Normal [facility] Comment on above: Performed By: #### T SH, LIPID, BMP, LIVER #### [facility] [address] [address] [address] Mary Bolanos LIVER PROFILEon 07-28-2022 Albumin [Mass/Vol] 3.4 g/dL Normal 3.4-5.0 [facility] Comment on above: Performed By: #### T SH, LIPID, BMP, LIVER #### [facility] [address] [place] [address] Dr. Mary Bolanos Albumin/Globulin [Mass ratio] 0.8 {ratio} Normal [facility] Comment on above: Performed By: #### T SH, LIPID, BMP, LIVER #### [facility] [address] [place] [address] Dr. Mary Bolanos ALP [Catalytic activity/Vol] 96 U/L Normal 46-116 [facility] Comment on above: Performed By: #### T SH, LIPID, BMP, LIVER #### [facility] [address] [place] [address] Dr. Mary Bolanos ALT [Catalytic activity/Vol] 32 U/L Normal 14-59 [facility] Comment on above: Performed By: #### T SH, LIPID, BMP, LIVER #### [facility] [address] [place] [address] Dr. Mary Bolanos AST [Catalytic activity/Vol] 25 U/L Normal 15-37 [facility] Comment on above: Performed By: #### T SH, LIPID, BMP, LIVER #### [facility] [address] [place] [address] Dr. Mary Bolanos BILI, CONJUGATED 0.1 mg/dL Normal 0.0-0.2 [facility] Comment on above: Performed By: #### T SH, LIPID, BMP, LIVER #### [facility] [address] [place] [address] Dr. Mary Bolanos Bilirubin [Mass/Vol] 0.3 mg/dL Normal 0.2-1.0 [facility] Comment on above: Performed By: #### T SH, LIPID, BMP, LIVER #### [facility] [address] [place] [address] Dr. Mary Bolanos Globulin (S) [Mass/Vol] 4.1 g/dL Normal [facility] Comment on above: Performed By: #### T SH, LIPID, BMP, LIVER #### [facility] [address] [place] [address] Dr. Mary Bolanos Protein [Mass/Vol] 7.5 g/dL Normal 6.4-8.2 [facility] Comment on above: Performed By: #### T SH, LIPID, BMP, LIVER #### [facility] [address] [place] [address] Dr. Mary Bolanos PROF CHEM 8 (BAS METB)on Anion gap [Moles/Vol] 8.5 mmol/L Normal [facility] Comment on above: Performed By: #### T SH, LIPID, BMP, LIVER #### [facility] [address] [place] [address] Dr. Mary Bolanos Calcium [Mass/Vol] 8.8 mg/dL Normal 8.5-10.1 [facility] Comment on above: Performed By: #### T SH, LIPID, BMP, LIVER #### [facility] [address] [place] [address] Dr. Mary Bolanos Chloride [Moles/Vol] 106 mmol/L Normal 98-107 [facility] Comment on above: Performed By: #### T SH, LIPID, BMP, LIVER #### [facility] [address] [place] [address] Dr. Mary Bolanos CO2 [Moles/Vol] 31.3 mmol/L Normal 21.0-32.0 [facility] Comment on above: Performed By: #### T SH, LIPID, BMP, LIVER #### [facility] [address] [address] [address] Mary Bolanos Creatinine [Mass/Vol] 1.13 mg/dL Critically high 0.55-1.02 [facility] Comment on above: Performed By: #### T SH, LIPID, BMP, LIVER #### [facility] [address] [address] [address] Mary Bolanos EGFR-AF SUDANESE >60 Normal >=60 [facility] Comment on above: Performed By: #### T SH, LIPID, BMP, LIVER #### [facility] [address] [address] [address] Mary Bolanos EGFR-NON AF SUDANESE 50 mL/min/1.73m2 Critically low >=60 [facility] Comment on above: Performed By: #### T SH, LIPID, BMP, LIVER #### [facility] [address] [address] [address] Mary Bolanos Glucose [Mass/Vol] 96 mg/dL Normal 74-106 [facility] Comment on above: Performed By: #### T SH, LIPID, BMP, LIVER #### [facility] [address] [address] [address] Mary Bolanos Potassium [Moles/Vol] 4.8 mmol/L Normal 3.5-5.1 [facility] Comment on above: Performed By: #### T SH, LIPID, BMP, LIVER #### [facility] [address] [address] [address] Mary Bolanos Sodium [Moles/Vol] 141 mmol/L Normal 136-145 [facility] Comment on above: Performed By: #### T SH, LIPID, BMP, LIVER #### [facility] [address] [address] [address] Mary Bolanos Urea nitrogen [Mass/Vol] 14.0 mg/dL Normal 7.0-18.0 [facility] Comment on above: Performed By: #### T SH, LIPID, BMP, LIVER #### [facility] [address] [address] [address] Mary Bolanos Urea nitrogen/Creatinine [Mass ratio] 12.4 mg/mg Normal [facility] Comment on above: Performed By: #### T SH, LIPID, BMP, LIVER #### [facility] [address] [place], [place] [address] Dr. Mary Bolanos TSHon 07-28-2022 TSH 2.034 uIU/mL Normal 0.358-3.740 [facility] Comment on above: Performed By: #### T SH, LIPID, BMP, LIVER #### [facility] [address] [place], [place] [address] Dr. Mary Bolanos COVID-19, RapidOrdered By: Madison Brown on 11-06-2020 SARS-CoV-2 (COVID-19) RNA NEIL+probe Ql (Unsp spec) Not detected Not Detected [employer] Phone: Comment on above: Rapid NAAT: The [...] management decisions. Fact sheet for Healthcare Providers: https://www.fda.gov/media/720807/download Fact sheet for Patients: https://www.fda.gov/media/056395/download Methodology: Isothermal Nucleic Acid Amplification Specimen Description .NASOPHARYNGEAL SWAB [employer] Phone: [employer] Phone: [id number] 11-06-2020 SARS-CoV-2 (COVID-19) RNA NEIL+probe Ql (Unsp spec) Not detected Normal NOTDET [facility] Comment on above: Result Comment: Rapid NAAT: [...] management decisions. Fact sheet for Healthcare Providers: https://www.fda.gov/media/914084/download Fact sheet for Patients: https://www.fda.gov/media/109801/download Methodology: Isothermal Nucleic Acid Amplification Performed By: #### C OVRB #### [place] [address] [employer] Hel[employer]: Siddharth Nunes MD Surgical Pathologyon Surgical Pathology [...] malignancy. SURGICAL PATHOLOGY CONSULTATION Patient Name: BECKY HARDWICKDeepali [facility] Rec: [id number] Path Number: [id number] [facility] [employer] ANATOMIC PATHOLOGY [address] [place] [address]. [place], [place] [address] [facility] Comment on above: Performed By: #### P PPVS #### [facility] [address] [place] [address] [employer] Helper: Primo King MD CT ABDOMEN PELVIS W [...] in the colon. Appendix normal. Pelvis: Normal Peritoneum/Retroperit oneum: The abdominal aorta and iliac arteries are normal in caliber. There is no pathologic adenopathy. Bones/Soft Tissues: Normal IMPRESSION: No acute disease. No radiodense urolithiasis or right inguinal hernia. Increased stool. Interpreted by: Kalia Fong MD Signed by: Kalia Fong MD 10/28/20 Final result Normal [facility] CT ABDOMEN PELVIS W IV CONTR AST Additional Contrast? OralOrdered By: Philip Brown on 10-28-2020 No acute disease. No radiodense urolithiasis or right inguinal hernia. Increased stool. [employer] Work Phone: EXAMINATION: CT OF THE ABDOMEN [...] in the colon. Appendix normal. Pelvis: Normal Peritoneum/Retroperit oneum: The abdominal aorta and iliac arteries are normal in caliber. There is no pathologic adenopathy. Bones/Soft Tissues: Normal [employer] Phone: Jose, pn Incoming Radiant Results From [employer] - 10/28/2020 9:25 PM EDT EXAMINATION: CT [...] in the colon. Appendix normal. Pelvis: Normal Peritoneum/Retroperit oneum: The abdominal aorta and iliac arteries are normal in caliber. There is no pathologic adenopathy. Bones/Soft Tissues: Normal IMPRESSION: No acute disease. No radiodense urolithiasis or right inguinal hernia. Increased stool. [facility] Work Phone: Creatinine w/GFRon 1 (cont.) Normal [facility] Comment on above: Result Comment: Aver age GFR for 50-59 years old: 93 mL/min/1.73sq m Chronic Kidney Disease: <60 mL/min/1.73sq m Kidney failure: <15 mL/min/1.73sq m eGFR calculated using average adult body mass. Additional eGFR calculator available at: http://www.Aireum/multiple_crcl_2012.htm Performed By: #### C REG #### [address] [address] [employer]: Siddharth Nunes MD Creatinine [Mass/Vol] 0.82 mg/dL Normal 0.50-0.90 [facility] Comment on above: Performed By: #### C REG #### [address] [id number] [employer]per: Siddharth Nunes MD GFR, Amer >60 Normal >60 [facility] Comment on above: Performed By: #### C REG #### [address] [id number] [employer] Helper: Siddharth Nunes MD GFR,non Amer >60 Normal >60 [facility] [place] Comment on above: Performed By: #### C REG #### [address] [id number] [employer] Helper: Siddharth Nunes MD Staging: NOT REPORTED Normal [facility] Comment on above: Performed By: #### C REG #### [address] [id number] [employer]per: Siddharth Nunes MD Creatinine, SerumOrdered By: Philip Brown on 10-28-2020 Creatinine [Mass/Vol] 0.82 mg/dL 0.50 - 0.90 mg/dL [employer] Work Phone: GFR >60 >60 mL/min [employer] Work Phone: GFR Non- >60 >60 mL/min [employer] Work Phone: GFR/1.73 sq M.predicted MDRD (S/P/Bld) [Vol rate/Area] [employer] Work Phone: Comment on above: Average GFR for 50-5 9 years old: 93 mL/min/1.73sq m Chronic Kidney Disease: <60 mL/min/1.73sq m Kidney failure: <15 mL/min/1.73sq m eGFR calculated using average adult body mass. Additional eGFR calculator available at: http://www.Aireum/multiple_crcl_2012.htm GFR/1.73 sq M.predicted MDRD (S/P/Bld) [Vol rate/Area] NOT REPORTED [employer] Work Phone: Vital Signs Date Time Vital Sign Value Performing Clinician Facility 03-19-2024 14:37-0400 Body height 165.1 cm Leeroy Mckeon MD Work Phone: [facility] 03-19-2024 14:37-0400 Body mass index (BMI) [Ratio] 45.1 kg/m2 Leeroy Mckeon MD Work Phone: [facility] 03-19-2024 14:37-0400 Body temperature 95.31 [degF] Leeroy Mckeon MD Work Phone: [facility] 03-19-2024 14:37-0400 Body weight 122.92 kg Leeroy Mckeon MD Work Phone: [facility] 03-19-2024 14:37-0400 Diastolic blood pressure 70 mm[Hg] Leeroy Mckeon MD Work Phone: [facility] 03-19-2024 14:37-0400 Heart rate 99 /min Leeroy Mckeon MD Work Phone: [facility] 03-19-2024 14:37-0400 Respiratory rate 22 /min Leeroy Mckeon MD Work Phone: [facility] 03-19-2024 14:37-0400 SaO2% (BldA) [Mass fraction] 92 % Leeroy Mckeon MD Work Phone: [facility] 03-19-2024 14:37-0400 Systolic blood pressure 142 mm[Hg] Leeroy Mckeon MD Work Phone: [facility] 02-14-2024 15:09-0400 Body height 165.1 cm Leeroy Mckeon MD Work Phone: [facility] 02-14-2024 15:09-0400 Body mass index (BMI) [Ratio] 45.93 kg/m2 Leeroy Mckeon MD Work Phone: [facility] 02-14-2024 15:09-0400 Body temperature 97.3 [degF] Leeroy Mckeon MD Work Phone: [facility] 02-14-2024 15:09-0400 Body weight 125.19 kg Leeroy Mckeon MD Work Phone: [facility] 02-14-2024 15:09-0400 Diastolic blood pressure 72 mm[Hg] Leeroy Mckeon MD Work Phone: [facility] 02-14-2024 15:09-0400 Heart rate 70 /min Leeroy Mckeon MD Work Phone: [facility] 02-14-2024 15:09-0400 SaO2% (BldA) [Mass fraction] 97 % Leeroy Mckeon MD Work Phone: [facility] 02-14-2024 15:09-0400 Systolic blood pressure 130 mm[Hg] Leeroy Mckeon MD Work Phone: [facility] 11-06-2020 17:15-0400 Diastolic blood pressure 76 mm[Hg] Philip Canos IV, DO Work Phone: [employer] Work Phone: 11-06-2020 17:15-0400 Heart rate 48 /min Philip Canos IV, DO Work Phone: [employer] Work Phone: 11-06-2020 17:15-0400 Respiratory rate 20 /min Philip Canos IV, DO Work Phone: [employer] Work Phone: 11-06-2020 17:15-0400 SaO2% (BldA) [Mass fraction] 100 % Philip Canos IV, DO Work Phone: [employer] Phone: 11-06-2020 17:15-0400 Systolic blood pressure 154 mm[Hg] Philip Canos IV, DO Work Phone: [employer] Phone: 11-06-2020 16:30-0400 Body temperature 97.2 [degF] Philip Canos IV, DO Work Phone: [employer] Phone: 11-06-2020 12:49-0400 Body height 162.6 cm Philip Canos IV, DO Work Phone: [employer] Phone: 11-06-2020 12:49-0400 Body mass index (BMI) [Ratio] 42.53 kg/m2 Philip Canos IV, DO Work Phone: [employer] Phone: 11-06-2020 12:49-0400 Body weight 112.4 kg Philip Canos IV, DO Work Phone: [employer] Phone: Encounters Encounter Date Encounter Type Care Provider Facility Start: 11-14-2024 End: 11-14-2024 Refill Leeroy Mckeon MD Work Phone: [facility] Comment on above: Morbid obesity due t o excess calories (CMS/HCC); Herpes labialis Start: 11-08-2024 End: 11-08-2024 ambulatory LEEROY MCKEON Not Available Start: 10-27-2024 End: 10-29-2024 Refill Leeroy Mckeon MD Work Phone: [facility] Comment on above: VIANCA (generalized anx iety disorder) (CMS/HCC) Start: 10-26-2024 End: 10-26-2024 Clinisync Result Encounter Leeroy Mckeon MD Work Phone: [facility] External Department Unsolicited Start: 10-26-2024 End: 10-26-2024 Clinisync Result Encounter Leeroy Mckeon MD Work Phone: [facility] External Department Unsolicited Start: 08-05-2024 End: 08-06-2024 Refill Leeroy Mckeon MD Work Phone: [facility] Comment on above: VIANCA (generalized anx iety disorder) (CMS/HCC); Morbid obesity due to excess calories (CMS/HCC) Start: 06-10-2024 End: 06-11-2024 Refill Leeroy Mckeon MD Work Phone: [facility] Comment on above: Morbid obesity due t o excess calories (CMS/HCC); VIANCA (generalized anxiety disorder) (CMS/HCC) Start: 04-10-2024 End: 04-11-2024 Refill Albertina Camacho [facility] Comment on above: Morbid obesity due t o excess calories (CMS/HCC) Start: 04-08-2024 End: 04-09-2024 Refill Leeroy Mckeon MD Work Phone: [facility] Comment on above: Morbid obesity due t o excess calories (CMS/HCC) Start: 03-29-2024 End: 03-29-2024 Refill Leeroy Mkceon MD Work Phone: [facility] Comment on above: VIANCA (generalized anx iety disorder) (CMS/HCC) Start: 03-19-2024 End: 03-19-2024 ambulatory LEEROY MCKEON Not Available Start: 03-19-2024 End: 03-19-2024 Office outpatient visit 25 minutes Leeroy Mckeon MD Work Phone: [facility] Comment on above: Benign essential hyp ertension (CMS/HCC) (Primary Dx); Undifferentiated schizophrenia (CMS/HCC); VIANCA (generalized anxiety disorder) (CMS/HCC); Primary insomnia; Morbid obesity due to excess calories (CMS/HCC) Start: 03-19-2024 End: 03-19-2024 Bamboo flowsheet Leeroy Mckeon MD Work Phone: [facility] Start: 03-19-2024 End: 03-19-2024 BamUI Roboto flowsheet Leeroy Mckeon MD Work Phone: [facility] Start: 03-08-2024 End: 03-08-2024 Refill Leeroy Mckeon MD Work Phone: [facility] Comment on above: Morbid obesity due t o excess calories (CMS/HCC); VIANCA (generalized anxiety disorder) (CMS/HCC) Start: 02-15-2024 End: 02-15-2024 ambulatory LEEROY MCKEON [facility] Start: 02-15-2024 End: 02-15-2024 ambulatory MATILDA COLORADO [facility] Start: 02-14-2024 End: 02-14-2024 Office outpatient visit 25 minutes Leeroy Mckeon MD Work Phone: [facility] Comment on above: DDD (degenerative di sc disease), lumbar (Primary Dx); Benign essential hypertension (CMS/HCC); Undifferentiated schizophrenia (CMS/HCC); VIANCA (generalized anxiety disorder) (CMS/HCC); Primary insomnia; Morbid obesity due to excess calories (CMS/HCC) Start: 02-14-2024 End: 02-14-2024 ambulatory LEEROY MCKEON Not Available Start: 02-14-2024 End: 02-14-2024 Bamboo flowsheet Leeroy Mckeon MD Work Phone: [facility] Start: 02-14-2024 End: 02-14-2024 Bambokirk flowsheet Leeroy Mckeon MD Work Phone: [facility] Start: 02-08-2024 End: 02-09-2024 Refill Leeroy Mckeon MD Work Phone: [facility] Comment on above: VIANCA (generalized anx iety disorder) (CMS/HCC) Start: 12-13-2023 End: 12-13-2023 ambulatory [facility] Work Phone: Start: 12-13-2023 End: 12-13-2023 Departed Referred DO [facility] Work Phone: [facility] Start: 07-26-2023 Refill Leeroy Bentley Work Phone: [facility] Comment on above: VIANCA (generalized anx iety disorder) (CMS/HCC) (Primary Dx) Start: 10-07-2022 End: 10-08-[address] LEEROY MCKEON Facility:[facility] Start: 07-30-2022 Encounter for genera l adult medical examination without abnormal findings DR LEEROY MCKEON [facility] Start: 07-28-2022 End: 07-29-[address] LEEROY MCKEON Facility:[facility] Start: 07-28-2022 End: 07-29-2022 Encounter for general adult medical examination without abnormal findings DR LEEROY MCKEON Facility:[facility] Start: 11-06-2020 End: 11-06-2020 ambulatory PHILIP BROWN [facility] Start: 11-06-2020 End: 11-06-2020 Patient encounter status Philip Brown DO Work Phone: [facility] Start: 11-06-2020 End: 11-06-2020 Subsequent hospital visit by physician Philip Brown DO Work Phone: [facility] [place] Comment on above: Pre-op testing (Prim juliet Dx); Acute post-operative pain Start: 10-28-2020 End: 10-31-2020 ambulatory PHILIP JOSE CANOS IV [facility] Start: 10-28-2020 End: 10-30-2020 Subsequent hospital visit by physician [facility] CT Scan Comment on above: Right groin pain Procedures Date Procedure Procedure Detail Performing Clinician Start: 10-26-2024 MM TOMOSYNTHESIS SCR EENING BI Leeroy Mckeon MD Work Phone: Start: 10-26-2024 Mammography Leeroy thorne MD Work Phone: Start: 12-13-2023 Colonoscopy Leeroy thorne MD Work Phone: Start: 10-25-2023 Mammography Leeroy thorne MD Work Phone: Start: 11-06-2020 COVID-19, RAPID Philip Jose Canos DO Work Phone: Start: 10-28-2020 Ct abdomen & pelvis w/contrast material Philip Jose Canos DO Work Phone: Start: 10-28-2020 Creatinine blood Rodolf o Jose Canos DO Work Phone: Plan of Treatment Date Care Activity Detail Author Start: 12-12-2033 Screening for malign ant neoplasm of colon [facility] Start: 02-14-2029 Screening for malign ant neoplasm of cervix [facility] Start: 08-19-2026 Screening for malign ant neoplasm of colon FIT-DNA [facility] Start: 10-26-2025 Screening for malign ant neoplasm of breast Mammogram [facility] Start: 10-21-2025 Screening for malign ant neoplasm of cervix [facility] Start: 05-13-2025 End: 05-13-2025 Patient encounter procedure 05/13/2025 1:45 PM EST Office Visit [facility] [address] [place] [id number] Leeroy Mckeon MD [address] [place] [address] [facility] Start: 02-18-2025 Influenza vaccination Influenz a Vaccine (Season Ended) [facility] Start: 11-08-2024 End: 11-08-2024 Patient encounter procedure 11/08/2024 2:00 PM EDT Office Visit [facility] [address] [place] [address] Leeroy Mckeon MD [address] [place] [phone] [facility] Start: 10-24-2024 Screening for malign ant neoplasm of breast Mammogram [facility] Start: 04-18-2024 End: 04-18-2024 Patient encounter procedure 04/18/2024 1:15 PM EDT Office Visit [facility] [address] [place] [address] Leeroy Mckeon MD [address] [place] [phone] [facility] Start: 03-15-2024 End: 03-15-2024 Patient encounter procedure 03/15/2024 2:30 PM EDT Office Visit [facility] [address] [place] [address] Leeroy Mckeon MD [address] [place] [id number] [facility] Start: 02-19-2024 Influenza vaccination Influenza Vacc ine (#1) [facility] Start: 02-14-2024 End: 02-14-2024 Patient encounter procedure [facility] Comment on above: Arrived Start: 02-18-2023 Influenza vaccination Influenza Vacc ine (#1) [facility] Start: 02-18-2021 Influenza vaccination Flu vacc ine (Season Ended) [employer] Phone: Start: 11-20-2020 End: 11-20-2020 Patient encounter procedure 11/20/2020 Office Visit General Surgery Philip Brown IV, DO [address] [place] [address] [phone] [facility] Start: 11-06-2020 End: 11-06-2020 Admission to same day surgery center 11/06/2020 Surgery General Surgery Philip Brown IV, DO [address] [place] [address] HERNIA UMBILICAL REPAIR LAPAROSCOPIC ROBOTIC WITH MESH [facility] [place] Comment on above: HERNIA UMBILICAL REP AIR LAPAROSCOPIC ROBOTIC WITH MESH Start: 11-06-2020 Subsequent hospital visit by physician 11/06/2020 Hospital Encounter General Surgery Philip Brown IV, DO [address] [place] [address] [facility] [place] Start: 11-04-2020 End: 11-04-2021 Basic metabolic 2000 panel - Serum or Plasma Basic Metabolic Panel Lab Routine Pre-op testing Expected: 11/04/2020, Expires: 11/04/2021 [employer] Phone: Comment on above: Expected: 11/04/2020 , Expires: 11/04/2021 Start: 11-04-2020 End: 11-04-2021 CBC W Auto Differential panel - Blood CBC Auto Differential Lab Routine Pre-op testing Expected: 11/04/2020, Expires: 11/04/2021 [employer] Phone: Comment on above: Expected: 11/04/2020 , Expires: 11/04/2021 Start: 2016 Screening for malign ant neoplasm of breast Breast cancer screen [employer] Phone: Start: 2016 Screening for malign ant neoplasm of colon Colon cancer screen colonoscopy [employer] Phone: Start: 2016 Shingles Vaccine (1 of 2) Shingles Vaccine (1 of 2) [facility] [employer] Phone: Start: 2006 Diabetes screen Diabetes screen [facility] [employer] Phone: Start: 2006 Lipid panel Lipid screen [place] Work Phone: Start: 2006 Screening for malign ant neoplasm of breast Mammogram [facility] Start: 1996 Screening for malign ant neoplasm of cervix [facility] Start: 08-27-1987 Screening for malign ant neoplasm of cervix [facility] Start: 1985 DTaP/Tdap/Td vaccine (1 - Tdap) DTaP/Tdap/Td vaccine (1 - Tdap) [facility] Phone: Start: 1981 HIV screening HIV screen [facility] Work Phone: Start: 1978 COVID-19 Vaccine (1) COVID-19 Vaccin e (1) [facility] [employer] Phone: Start: 1966 Hepatitis C screening Hepatitis C sc reen [facility] [employer] Phone: Start: 1966 Screening for malign ant neoplasm of colon [facility] End: 11-06-2020 Blood glucose - POCT Blood glucose - POCT Point of Care Testing Routine One Time for 1 Occurrences starting 11/06/2020 until 11/06/2020 [employer] Phone: Comment on above: One Time for 1 Occur rences starting 11/06/2020 until 11/06/2020 End: 11-04-2021 EKG 12 lead EKG 12 lead ECG Routine Pre-op testing 1 Occurrences starting 11/04/2020 until 11/04/2021 [employer] Phone: Comment on above: 1 Occurrences starti ng 11/04/2020 until 11/04/2021 Oxygen therapy [[facility] Data Set] Initiate Oxygen Therapy Protocol Respiratory Care Routine Daily until discontinued starting 11/06/2020 [employer] Phone: Comment on above: Daily until disconti nued starting 11/06/2020 Phase I & II - meter ed glucose Phase I & II - metered glucose Point of Care Testing Routine As Needed until discontinued starting 11/06/2020 [employer] Phone: Comment on above: As Needed until disc ontinued starting 11/06/2020 End: 11-06-2020 , urine POCT , urine POCT Point of Care Testing Routine One Time for 1 Occurrences starting 11/06/2020 until 11/06/2020 [employer] Phone: Comment on above: One Time for 1 Occur rences starting 11/06/2020 until 11/06/2020 Surgical Pathology Surgical Path ology Lab Routine Release Upon Ordering for 1 Occurrences starting 11/06/2020 [employer] Phone: Comment on above: Release Upon Orderin g for 1 Occurrences starting 11/06/2020 Immunizations Immunization Date Immunization Notes Care Provider [facility] 02-26-2020 influenza virus vacc ine, unspecified formulation Leeroy Mckeon MD Work Phone: [facility] Payers Date Payer Category Payer Self-pay [id number] 2023 Private Health Insurance [facility] [id number] 2022 Unknown [id number] 2020 Unknown [id number] 1966 Unknown [id number] [id number]. 2.175 1966 Unknown [id number] [id number]. 2.175 1966 Unknown [id number] [id number]. 2.593 1966 Unknown [id number] [id number]. 2.593 1966 Unknown [id number] [id number]. 2.1286 1966 Unknown [id number] [id number]. 2.1286 1966 Unknown [id number] [id number]. 2.1259 1966 Unknown [id number] [id number]. 2.1259 1966 Unknown [id number] [id number]. 2.1259 1959 Unknown [id number] Medicare [id number] Unknown [id number] 2.531 Social History Date Type Detail Facility Start: 10-30-2020 End: 10-31-2023 Tobacco smoking status [facility] Former smoker [employer] Phone: End: 06-20-2004 History of tobacco use Current smoker [employer]: 10-30-2020 End: 10-31-2023 Tobacco use and exposure Never used [employer] Start: 1965 Sex Assigned At Not on file [employer] Work Phone: Start: 11-06-2020 Alcohol intake Ex-drinker (finding) [employer] Work Phone: Exposure to SARS-CoV -2 (event) Not sure [employer] Tobacco smoking stat us [facility] Tobacco smoking consumption unknown [facility] Start: 10-09-2023 End: 11-02-2024 Gender identity Not on file [facility] Start: 04-19-2020 Tobacco smoking status [facility] Never smoked tobacco (finding) [facility] Start: 1965 Sex Assigned At Female [facility] End: 06-20-2004 History of tobacco use Cigarette Smoker [facility] History of tobacco use Passive smoker [facility] Start: 03-19-2024 End: 11-08-2024 Alcoholic beverage intake Lifetime non-drinker (finding) [facility] Start: 10-09-2023 End: 11-02-2024 History of Social function [facility] Do you belong to any clubs or organizations such as advent groups, unions, fraternal or athletic groups, or school groups? No [facility] Are you now , , , , never or living with a partner? [facility] How often to you hav e a drink containing alcohol? Never [facility] How many standard dr inks containing alcohol do you have on a typical day? Patient does not drink [facility] How hard is it for y ou to pay for the very basics like food, housing, medical care, and heating Somewhat hard [facility] Do you feel stress - tense, restless, nervous, or anxious, or unable to sleep at night because your mind is troubled all the time - these days [OSQ] Only a little [facility] (I/We) worried whegarett er (my/our) food would run out before (I/we) got money to buy more. Never true [facility] In the past 12 month s, was there a time when you were not able to pay the mortgage or rent on time? Yes [facility] How often do you nee d to have someone help you when you read instructions, pamphlets, or other written material from your doctor or pharmacy [SILS] Rarely [facility] How often to you hav e a drink containing alcohol? Monthly or less [facility] Clinical Notes 09-18-2020 to 03-19-2024 Leeroy Mckeon MD - 03/19/2024 2:59 PM EDColeman Mckeon MD - 03/19/2024 2:59 PM Tory Mckeon MD - 03/19/2024 2:58 PM Tory Mckeon MD - 03/19/2024 2:58 PM EDTInstructions Note Date & Type Note Facility 03-19-2024 History of Presen t illness Narrative Associated Problem(s): Undifferentiated schizophrenia (CMS/HCC) Mood controlled with medication and continue. Associated Problem(s): Primary insomnia Sleeping well with medication and continue. Associated Problem(s): Morbid obesity due to excess calories (CMS/HCC) Patient doing well with adipex and lost 5 pounds in first month. Tolerating well with only mild dry mouth. Continue with dietary changes and less calories. Need to limit snacking and smaller portions. Continue healthier choices. Need regular aerobic exercise 30 minutes at a time 5-6 days a week. Refill for second month. OARRS reviewed. Continue meds as prescribed. If develop new or worsening symptoms contact office. Associated Problem(s): VIANCA (generalized anxiety disorder) (CMS/HCC) Mood controlled with medication and continue. Use ativan PRN. Associated Problem(s): Benign essential hypertension (CMS/HCC) BP controlled and monitor PRN. Images from the original note were not included. Subjective Patient ID: Becky Hardwick is a 58 y.o. female who presents for Follow-up (1m). Follow up HTN, schizophrenia, anxiety, insomnia, and [...] stay asleep. Wakes up rested in am. Started adipex last visit and weight down 5 pounds. Tolerating medication without side effects except mild dry mouth. Not as hungry with medication. Smaller portions and not snacking. Increased fruits and vegetables. Tries to limit total daily calories. Increased activity and walking almost daily. Review of Systems Respiratory: Negative for cough, [...] medication and continue. Benign essential hypertension (CMS/HCC) - Primary BP controlled and monitor PRN. VIANCA (generalized anxiety disorder) (CMS/HCC) Mood controlled with medication and continue. Use ativan PRN. Undifferentiated schizophrenia (CMS/HCC) Mood controlled with medication and continue. Morbid obesity due to excess calories (CMS/HCC) Patient doing well with adipex and lost 5 pounds in first month. Tolerating well with only mild dry mouth. Continue with dietary changes and less calories. Need to limit snacking and smaller portions. Continue healthier choices. Need regular aerobic exercise 30 minutes at a time 5-6 days a week. Refill for second month. OARRS reviewed. Continue meds as prescribed. If develop new or worsening symptoms contact office. documented in this encounter [facility] 02-14-2024 History of Presen t illness Narrative Associated Problem(s): Undifferentiated schizophrenia (CMS/HCC) Mood controlled with medication and continue. Associated Problem(s): Primary insomnia Sleeping well with medication and continue. Associated Problem(s): Morbid obesity due to excess calories (CMS/HCC) Patient overweight and difficult time losing weight. [...] month. OARRS reviewed. Continue medications as prescribed. Associated Problem(s): VIANCA (generalized anxiety disorder) (CMS/HCC) Mood controlled with medication and continue. Use ativan PRN. Associated Problem(s): DDD (degenerative disc disease), lumbar Pain improved and monitor. Handout with stretches to patient. Use OTC PRN. Associated Problem(s): Benign essential hypertension (CMS/HCC) BP controlled and monitor PRN. Images from the original note were not included. Subjective Patient ID: Becky Hardwick is a 58 y.o. female who presents for No chief complaint on file.. ER follow up from 01/29 for back pain and follow up HTN, schizophrenia, anxiety, and insomnia. Patient improved today. Developed pain in low back and across top hips. No injury or trauma. Pain radiated into leg. ER gave steroids and muscle relaxer. Pain improved today and not as intense. Still pain in back but no longer with radicular symptoms. Checking BP PRN and typically controlled. BP [...] fall asleep and stay asleep. Wakes up rested. Weight unchanged over past year and wants to lose weight. Not active and no exercise. Tries to watch diet and eat healthy. Increased fruits and vegetables. Smaller portions and limits snacking. Tries to limit total daily calories. Requests adipex. Review of Systems Respiratory: Negative for cough, [...] hypertension (CMS/HCC) BP controlled and monitor PRN. DDD (degenerative disc disease), lumbar - Primary Pain improved and monitor. Handout with stretches to patient. Use OTC PRN. VIANCA (generalized anxiety disorder) (CMS/HCC) Mood controlled with medication and continue. Use ativan PRN. Undifferentiated schizophrenia (CMS/HCC) Mood controlled with medication and continue. Morbid obesity due to excess calories (CMS/HCC) Patient overweight and difficult time losing weight. [...] month. OARRS reviewed. Continue medications as prescribed. Relevant Medications phentermine (Adipex-P) 37.5 MG tablet documented in this encounter [facility] 07-28-2023 Telephone encounter Note Patient has appointment 10/09 at 1:45 in [facility] but not in [facility]. Please add appointment. MAN [facility] 07-28-2023 Miscellaneous Notes Patient has appointment 10/09 at 1:45 in [facility] but not in [facility]. Please add appointment. MAN documented in this encounter [facility] 11-04-2020 History of Presen t illness Narrative Preoperative Instructions: Stop eating solid foods at midnight the night prior to your surgery. Stop drinking clear liquids at midnight the night prior to your surgery. 11-06-20 Arrive at the surgery center (3rd entrance) on ___[id number] by ___[id number] . Please stop any blood [...] drive you home after your procedure. 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 Bronw in: 7-10 days Activity You have had [...] a strong odor. documented in this encounter [facility] Phone: Evaluation note Diagnosis Right groin pain Abdominal pain, right lower quadrant documented in this encounter [facility] Phone: evaluation note* Diagnosis Pre-op testing- Primary Preoperative examination, unspecified Acute post-operative pain documented in this encounter [facility] Phone: evaluation note* Diagnosis VIANCA (generalized anxiety disorder) ([facility]/HCC)- Primary Generalized anxiety disorder documented in this encounter [facility] HealthcareEvaluation noteNo assessment information [facility] Work Phone: Evaluation note* Diagnosis VIANCA (generalized anxiety disorder) ([facility]/HCC) Generalized anxiety disorder documented in this encounter [facility] HealthcareEvaluation note* Diagnosis DDD (degenerative disc disease), lumbar- Primary Degeneration of lumbar or lumbosacral intervertebral disc Benign essential hypertension (CMS/HCC) Essential hypertension, benign Undifferentiated schizophrenia (CMS/HCC) VIANCA (generalized anxiety disorder) (CMS/HCC) Generalized anxiety disorder Primary insomnia Persistent disorder of initiating or maintaining sleep Morbid obesity due to excess calories (CMS/HCC) Benign essential hypertension (CMS/HCC)- Primary Essential hypertension, benign Undifferentiated schizophrenia (CMS/HCC) VIANCA (generalized anxiety disorder) (CMS/HCC) Generalized anxiety disorder Primary insomnia Persistent disorder of initiating or maintaining sleep Morbid obesity due to excess calories (CMS/HCC) Morbid obesity due to excess calories (CMS/HCC) [facility] Diagnosis VIANCA (generalized anxiety disorder) (CMS/HCC) Generalized anxiety disorder [facility]* Diagnosis DDD (degenerative disc disease), lumbar- Primary Degeneration of lumbar or lumbosacral intervertebral disc Benign essential hypertension (CMS/HCC) Essential hypertension, benign Undifferentiated schizophrenia (CMS/HCC) VIANCA (generalized anxiety disorder) (CMS/HCC) Generalized anxiety disorder Primary insomnia Persistent disorder of initiating or maintaining sleep Morbid obesity due to excess calories (CMS/HCC) [facility]* Diagnosis Morbid obesity due to excess calories (CMS/HCC) VIANCA (generalized anxiety disorder) ([facility]/HCC) Generalized anxiety disorder [facility]* Diagnosis Benign essential hypertension (CMS/HCC)- Primary Essential hypertension, benign Undifferentiated schizophrenia (CMS/HCC) VIANCA (generalized anxiety disorder) (CMS/HCC) Generalized anxiety disorder Primary insomnia Persistent disorder of initiating or maintaining sleep Morbid obesity due to excess calories (CMS/HCC) [facility]* Diagnosis DDD (degenerative disc disease), lumbar- Primary Degeneration of lumbar or lumbosacral intervertebral disc Benign essential hypertension (CMS/HCC) Essential hypertension, benign Undifferentiated schizophrenia (CMS/HCC) VIANCA (generalized anxiety disorder) (CMS/HCC) Generalized anxiety disorder Primary insomnia Persistent disorder of initiating or maintaining sleep Morbid obesity due to excess calories (CMS/HCC) Benign essential hypertension (CMS/HCC)- Primary Essential hypertension, benign Undifferentiated schizophrenia (CMS/HCC) VIANCA (generalized anxiety disorder) (CMS/HCC) Generalized anxiety disorder Primary insomnia Persistent disorder of initiating or maintaining sleep Morbid obesity due to excess calories (CMS/HCC) Morbid obesity due to excess calories (CMS/HCC) VIANCA (generalized anxiety disorder) (CMS/HCC) Generalized anxiety disorder [facility]* Diagnosis DDD (degenerative disc disease), lumbar- Primary Degeneration of lumbar or lumbosacral intervertebral disc Benign essential hypertension (CMS/HCC) Essential hypertension, benign Undifferentiated schizophrenia (CMS/HCC) VIANCA (generalized anxiety disorder) (CMS/HCC) Generalized anxiety disorder Primary insomnia Persistent disorder of initiating or maintaining sleep Morbid obesity due to excess calories (CMS/HCC) Benign essential hypertension (CMS/HCC)- Primary Essential hypertension, benign Undifferentiated schizophrenia (CMS/HCC) VIANCA (generalized anxiety disorder) (CMS/HCC) Generalized anxiety disorder Primary insomnia Persistent disorder of initiating or maintaining sleep Morbid obesity due to excess calories (CMS/HCC) VIANCA (generalized anxiety disorder) (CMS/HCC) Generalized anxiety disorder Morbid obesity due to excess calories (CMS/HCC) [facility]* Diagnosis DDD (degenerative disc disease), lumbar- Primary Degeneration of lumbar or lumbosacral intervertebral disc Benign essential hypertension (CMS/HCC) Essential hypertension, benign Undifferentiated schizophrenia (CMS/HCC) VIANCA (generalized anxiety disorder) (CMS/HCC) Generalized anxiety disorder Primary insomnia Persistent disorder of initiating or maintaining sleep Morbid obesity due to excess calories (CMS/HCC) Benign essential hypertension (CMS/HCC)- Primary Essential hypertension, benign Undifferentiated schizophrenia (CMS/HCC) VIANCA (generalized anxiety disorder) (CMS/HCC) Generalized anxiety disorder Primary insomnia Persistent disorder of initiating or maintaining sleep Morbid obesity due to excess calories (CMS/HCC) VIANCA (generalized anxiety disorder) (CMS/HCC) Generalized anxiety disorder [facility] Diagnosis DDD (degenerative disc disease), lumbar- Primary Degeneration of lumbar or lumbosacral intervertebral disc Benign essential hypertension (CMS/HCC) Essential hypertension, benign Undifferentiated schizophrenia (CMS/HCC) VIANCA (generalized anxiety disorder) (CMS/HCC) Generalized anxiety disorder Primary insomnia Persistent disorder of initiating or maintaining sleep Morbid obesity due to excess calories (CMS/HCC) Benign essential hypertension (CMS/HCC)- Primary Essential hypertension, benign Undifferentiated schizophrenia (CMS/HCC) VIANCA (generalized anxiety disorder) (CMS/HCC) Generalized anxiety disorder Primary insomnia Persistent disorder of initiating or maintaining sleep Morbid obesity due to excess calories (CMS/HCC) Annual physical exam- Primary Routine general medical examination at a health care facility Benign essential hypertension (CMS/HCC) Essential hypertension, benign Undifferentiated schizophrenia (CMS/HCC) VIANCA (generalized anxiety disorder) (CMS/[facility]) Generalized anxiety disorder Primary insomnia Persistent disorder of initiating or maintaining sleep Morbid obesity due to excess calories ([facility]) Morbid obesity due to excess calories ([facility]) Herpes labialis Herpes simplex without mention of complication documented in this encounter [facility] Reason for Referral Status Reason Specialty Diagnoses / Procedures Referre d By Contact Referred To Contact Closed Radiology Diagnoses Right groin pain Procedures CT ABDOMEN PELVIS W IV CONTRAST Additional Contrast? Oral [id number] Canos, Philip Jose IV, DO [address] [place] [address] Status Reason Specialty Diagnoses / Procedures Referre d By Contact Referred To Contact Open Cardiology Diagnoses Pre-op testing Procedures EKG 12 lead Jaelyn Welch MD [address] [place] [address] Summary Purpose Family History No Family History [...] PELVIS W IV CONTRAST Additional Contrast? Oral [id number] Canos, Philip Jose IV, DO [address] [place] [address] Status Reason Specialty Diagnoses / Procedures Referre d By Contact Referred To Contact Diagnoses Umbilical hernia UMBILICAL HERNIA Procedures REPAIR UMBILICAL SILKE,5+Y/O,REDUC HERNIA UMBILICAL REPAIR LAPAROSCOPIC ROBOTIC WITH MESH Canos, Philip Jose IV, DO [address] [place] [address] [facility] Reason Comments Med Refill Reason Onset Date Comments Med Refill 04/10/2024 Reason Comments Follow-up 1m Ordered Prescriptions (unrec ognized section and content) [...] 1425 (Given - Provid er: Therese Collado, RN) midazolam (VERSED) 2 MG/2ML injection (COMPLETED) Starting on Zandra 11/06/20 at 1306, For 1 dose, Therese Collado.: cabinet override 1424 (Given - Provid er: Therese Collado, RN) INFORMATION SOURCE (unrecogn ized section and content) DATE CREATED AUTHOR 11/11/2020 [facility] DATE CREATED AUTHOR AUTHOR'S ORGANIZ ATION 11/03/2022 [facility] DATE CREATED AUTHOR AUTHOR'S ORGANIZ ATION 12/15/2023 [facility] DATE CREATED AUTHOR AUTHOR'S ORGANIZ ATION 02/17/2024 [facility] DATE CREATED AUTHOR AUTHOR'S ORGANIZ ATION 03/05/[address] [facility] DATE CREATED AUTHOR AUTHOR'S ORGANIZ ATION 11/15/2024 [facility] [employer] Care Teams (unrecognized sec tion and content) [employer] Relationship Specialty Start Date End Date Leeroy Mckeon MD PCP - General Family Medicine 02/18/23 Team Status: Inactive Member Role Status Dates Chris Vergara DO Attending Provider Active Star t: December 13, 2023 End: December 13, 2023 [employer] Relationship Specialty Start Date End Date Leeroy Mckeon MD [address] [place] [address] PCP - General Family Medicine 02/18/23 [employer] Relationship Specialty Start Date End Date Leeroy Mckeon MD [address] [place] [address] PCP - General Family Medicine 02/18/23 [employer] Relationship Specialty Start Date End Date Leeroy Mckeon MD [address] [place] [address] PCP - General Family Medicine 02/18/23 [employer] Relationship Specialty Start Date End Date Leeroy Mckeon MD [address] [place] [id number] PCP - General Family Medicine 02/18/23 [employer] Relationship Specialty Start Date End Date Leeroy Mckeon MD [address] [place] [address] PCP - General [facility] Medicine 02/18/23 [employer] Relationship Specialty Start Date End Date Leeroy Mckeon MD [address] [place] [phone] PCP - General Family Medicine 02/18/23 [employer] Relationship Specialty Start Date End Date Leeroy Mckeon MD [address] [place] [id number] PCP - General [facility] Medicine 02/18/23 [employer] Relationship Specialty Start Date End Date Leeroy Mckeon MD [address] [place] [address] PCP - General Family Medicine 02/18/23 [employer] Relationship Specialty Start Date End Date Leeroy Mckeon MD [address] [place] [address] PCP - General Family Medicine 02/18/23 [employer] Relationship Specialty Start Date End Date Leeroy Mckeon MD [address] [place] [address] PCP - General Family Medicine 02/18/23 [employer] Relationship Specialty Start Date End Date Leeroy Mckeon MD [address] [place] [address] PCP - General Family Medicine 02/18/23 [employer] Relationship Specialty Start Date End Date Leeroy Mckeon MD [address] [place] [address] PCP - General Family Medicine 02/18/23 Goals (unrecognized section and content) Goals may [...] BE BASED ON THE PRIMARY CLINICAL RECORDS. US PREVENTIVE MEDICINE [facility]. provides no warranty or guarantee of the accuracy or completeness of information in this document.
[2024-11-15 15:26] LABS: Estimated Average Glucose 114 mg/dL; Glycohemoglobin A1C 5.6 % (4.5-6.2)
[2024-11-15 15:44] LABS: Alanine Aminotransferase 35 U/L (14-59); Albumin Globulin Ratio 0.8; Albumin Level 3.3 g/dL (3.4-5.0); Alkaline Phosphatase 88 U/L (46-116); Anion Gap 10.8; Aspartate Amino Transferase 19 U/L (15-37); Bilirubin Direct 0.1 mg/dL (0.0-0.2); Bilirubin Total 0.3 mg/dL (0.2-1.0); Calcium 8.6 mg/dL (8.5-10.1); Carbon Dioxide 28.2 mmol/L (21.0-32.0); Chloride 107 mmol/L (98-107); Cholesterol 192 mg/dL (<=200); Estimated GFR (African America 59 (>=60 mL/min/1.73m^2); Estimated GFR (Non-African Ame 48 (>=60 mL/min/1.73m^2); Globulin 4.1 g/dL; Glucose 95 mg/dL (74-106); HDL Cholesterol 65 mg/dL (40-60); Sodium 142 mmol/L (136-145); TSH W/ REFLEX FT4 1.553 uIU/mL (0.358-3.740); Total Protein 7.4 g/dL (6.4-8.2); Triglycerides 99 mg/dL (<=150); VLDL CHOLESTEROL 19.8 mg/dL
== END 2024-11-15 15:17 | disposition home or self-care (01) ==
LOC: LAB 15:16
PROVIDERS: PCP Family Medicine; Visit Provider Family Medicine
DX: Z00.00 Encounter for general adult medical examination without abnormal findings (principal)
CPT/HCPCS: 36415; 80048; 80061; 80076; 83036; 84443; 85025